=== PATIENT | female | born 1945 | race Caucasian/White ===

== ENCOUNTER 2020-09-23 18:07 | Emergency (ER) | payer MEDICARE, SELFPAY ==
[2020-09-23 18:18] VITALS: BP 205/66; PULSE 63; RESP 16; TEMP 36.4; O2SAT 94; BMI 28.3
--- NOTE | 2020-09-23 18:46 | XR_ITS ---
WS: [id number] Exam: XR chest 1V portable [id number] Date/Time of Exam: 09/23/2020 6:48 PM Reason For Exam: CP No priors. The lungs are clear. Normal cardiomediastinal structures and regional bony elements. XR/XR chest 1V portable [id number] IMPRESSION: 1. No acute cardiopulmonary finding.
[2020-09-23 19:34] LABS: Basophils % 0.5 %; Eosinophils # 0.3 10^3/uL (0.0-0.8); Hematocrit 38.5 % (37.0-47.0); Hemoglobin 13.1 g/dL (11.5-15.3); Lymphocytes # 1.9 10^3/uL (0.8-4.8); Lymphocytes % 34.5 %; Mean Corpuscular Hemoglobin 30.8 pg (28.0-34.0); Mean Corpuscular Volume 90.6 fL (81-99); Mean Platelet Volume 11.9 fL (7.4-10.4); Monocytes # 0.5 10^3/uL (0.2-0.9); Monocytes % 8.9 %; Neutrophils # 2.84 10^3/uL (1.8-7.7); Neutrophils % 50.9 %; Nucleated Red Blood Cells % 0 %; Platelet Count 160 10^3/cmm (130-400); Red Blood Count 4.25 10^6/uL (4.1-5.3); Red Cell Distribution Width 13.5 % (12.1-15.1); White Blood Count 5.6 10^3/uL (4.0-10.0)
--- NOTE | 2020-09-23 19:40 | ECG_ITS ---
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 Measurements Intervals [place] Rate: 62 P: 30 AL: 150 QRS: 48 QRSD: 108 T: 21 QT: 427 QTc: 435 Interpretive Statements SINUS RHYTHM LOW QRS VOLTAGE IN PRECORDIAL LEADS [QRS DEFLECTION < 1.0 mV IN CHEST LEADS] INCOMPLETE RIGHT BUNDLE BRANCH BLOCK [90+ ms QRS DURATION, TERMINAL R IN V1/V2, 40+ ms S IN I/aVL/V4/V5/V6] No previous ECG available for comparison Electronically Signed On 09-23-2020 21:13:50 CDT by Radha Phillips M.D. [id number] f
[2020-09-23 19:55] LABS: Lactate (Lactic Acid level) 1.6 mmol/L (0.5-2.2)
[2020-09-23 20:03] LABS: Troponin(5th) Baseline 13 ng/L (0-10)
[2020-09-23 20:11] LABS: Alanine Aminotransferase 19 U/L (0-33); Albumin Level 4.2 g/dL (3.5-5.2); Alkaline Phosphatase 57 IU/L (35-105); Aspartate Amino Transferase 18 U/L (0-32); Blood Urea Nitrogen 18 mg/dL (8-23); C Reactive Protein 1.1 mg/L (0.0-4.9); Calcium 9.6 mg/dL (8.5-10.5); Carbon Dioxide 25 mmol/L (22-29); Chloride 102 mmol/L (98-107); Creatinine Clr Calc Pharmacy 57.1106; Globulin 2.7 g/dL (1.3-4.6); Glucose 139 mg/dL (65-115); Lipase 44 U/L (13-60); NT Pro B Type Natriuretic Pept 446 pg/mL (0-450); Osmolality Calculated 292 mOsm/kg (285-295); Sodium 139 mmol/L (136-145); Total Bilirubin 0.5 mg/dL (0.15-1.2); Total Protein 6.9 g/dL (6.6-8.7)
[2020-09-23 20:34] LABS: Urine Appearance Hazy (CLEAR); Urine Color Yellow (Yellow); pH Urine 6.5 (5-7)
[2020-09-23 20:35] LABS: Add Urine Microscopic? YES; Bilirubin Urine Neg (Negative); Blood Urine Neg (Negative); Glucose Urine UA Norm (Normal); Ketones Urine Negative (Negative); Leukocyte Esterase Urine 1+ (Negative); Nitrate Urine Positive (Negative); Protein Urine Neg (Negative); RBC Urine 0-4 /hpf (0-2); Urobilinogen Urine Norm (Negative); WBC Urine 15-25 /hpf (0-5)
[2020-09-23 20:36] LABS: Add Urine Culture? Yes; Bacteria Urine 4+ /hpf
[2020-09-23] MEDS: cefTRIAXone 1,000 MG in sodium chloride 0.9% (plus) 50 ML 100 MG IV (20:55)
--- NOTE | 2020-09-23 21:20 | W.ED.GENADLT ---
HPI - General Adult General: Chief complaint: General Medical Stated complaint: Hallucinating/Poss UTI Time Seen by Provider: 09/23/20 18:26 Source: family (daughter) Mode of arrival: ambulatory Limitations: altered mental status History of Present Illness: HPI narrative: This is a 74-year-old female patient who was brought in by her daughter and states that the patient has been hallucinating for about 3 days. The patient endorses auditory and visual hallucinations. The daughter states that the last time this happened the patient was septic from a UTI and so she was concerned that she may be getting a UTI. She states that the patient told her that she had pain after urination today and also complained of chest pain earlier today. She therefore brought her in to be evaluated. Onset (ago): hour(s) (3) Location: chest Pain Consistency: intermittent Associated symptoms: Reports chest pain; Deny confusion, cough, diaphoresis, decreased appetite, dyspnea, fevers/chills, headache(s), malaise, nausea, rash, palpitations, seizures, short of breath, syncope, vomiting or weakness Review of Systems General: Reports: 10 or more systems reviewed and unremarkable except in HPI and below Const: Denies: malaise or diaphoresis Card: Reports: chest pain; Denies: palpitations or syncope Resp: Denies: dyspnea GI: Denies: nausea or vomiting Skin/Breast: Denies: rash Neuro: Denies: headache(s) or confusion Physical Exam Const: COMMON NORMALS: no acute distress, average body habitus, patient oriented x3, no limitations, healthy appearing, alert and well nourished HENMT: COMMON NORMALS: normocephalic, atraumatic and moist oral mucous membranes HEAD & SCALP: normocephalic and atraumatic Neck/C-Spine: COMMON NORMALS: no meningeal signs and no JVD Resp: COMMON NORMALS: normal respiratory effort, No retractions, No use of accessory muscles, clear to auscultation bilaterally and percussion normal AUSCULTATION: clear to auscultation bilaterally PERCUSSION: percussion normal Cardio: COMMON NORMALS: no JVD, regular rate, regular rhythm, S1 normal heart sound present, S2 normal heart sound present, No gallops present (Cardio), No clicks present (Cardio), No murmurs present (Cardio), No rub (Cardio) and Peripheral pulses 2+ throughout RATE: regular rate RHYTHM: regular rhythm HEART SOUNDS: S1 normal heart sound present and S2 normal heart sound present PERIPHERAL PULSES: Peripheral pulses 2+ throughout GI: COMMON NORMALS: Normal to inspection, nondistended, normoactive bowel sounds present, Soft to palpation, non-tender, No hepatosplenomegaly present, no masses and no bruits PALPATION: Yes Soft to palpation and Yes No hepatosplenomegaly present Extremity: COMMON NORMALS: normal to inspection, full ROM, capillary refill normal, no calf tenderness and no pedal edema Neuro: COMMON NORMALS: patient oriented x3 SENSORIUM/ORIENTATION: Yes alert MENINGEAL SIGNS: Yes no meningeal signs Skin: COMMON NORMALS: no rashes or lesions noted, no wounds, turgor normal, no jaundice, no petechiae and no mottling GENERAL SKIN EXAM: no rashes or lesions noted and turgor normal Course Reevaluation(s): Reevaluation #1: Discussed her lab and imaging findings with her. Discussed that she has a UTI and probably has delirium from these. Her white cell count is normal, her vital signs are normal, cardiac enzymes are unremarkable. I therefore explained to her daughter that the patient does not meet admission criteria and will be discharged home. Blood pressure was elevated in the emergency department and the daughter states that the blood pressure has been consistently elevated at home also. I will therefore add amlodipine 10 mg to her antihypertensive regimen and she is discharged home with a prescription for Augmentin. She voiced understanding and is in agreement with the plan. Time: 22:05 Vital Signs: Vital signs: Vital Signs Temperature 97.6 F 09/23/20 18:18 Pulse Rate 63 09/23/20 18:18 Respiratory Rate 16 09/23/20 18:18 Blood Pressure 216/77 09/23/20 21:54 Pulse Oximetry 94 09/23/20 18:18 MDM - General Adult MDM Narrative: Medical decision making narrative: 74-year-old female patient was brought into the emergency department with auditory and visual hallucinations evaluation in the emergency department shows that the patient has a UTI and she probably has delirium secondary to this. Vital signs were stable other than elevated blood pressure she required a dose of clonidine in the emergency department she is given a prescription for amlodipine. She is discharged home also with a prescription for Augmentin for the UTI. Daughter understands to bring her back if symptoms worsen or she does not obtain significant improvement. Medical Records: Attestation: I reviewed the patient's medical records. Lab Data: Attestation: I reviewed the patient's lab results. Labs: Lab Results 09/23/20 09/23/20 09/23/20 Range/Units 19:20 19:20 19:20 WBC 5.6 (4.0-10.0) 10^3/ uL RBC 4.25 (4.1-5.3) 10^6/u L Hgb 13.1 (11.5-15.3) g/dL Hct 38.5 (37.0-47.0) % MCV 90.6 (81-99) fL MCH 30.8 (28.0-34.0) pg MCHC 34.0 (30.0-36.0) g/dL RDW 13.5 (12.1-15.1) % Plt Count 160 (130-400) 10^3/c mm MPV 11.9 H (7.4-10.4) fL Neut % (Auto) 50.9 % Lymph % (Auto) 34.5 % [place] % (Auto) 8.9 % Eos % (Auto) 5.0 % Baso % (Auto) 0.5 % Neut # (Auto) 2.84 (1.8-7.7) 10^3/u L Lymph # (Auto) 1.9 (0.8-4.8) 10^3/u L [place] # (Auto) 0.5 (0.2-0.9) 10^3/u L Eos # (Auto) 0.3 (0.0-0.8) 10^3/u L Baso # (Auto) 0.0 (0.0-0.1) 10^3/u L Nucleated RBC % (a uto) 0 % Nucleated RBCs # 0.0 /100WBC Sodium 139 (136-145) mmol/L Potassium 4.0 (3.5-5.1) mmol/L Chloride 102 (98-107) mmol/L Carbon Dioxide 25 (22-29) mmol/L Anion Gap 16.0 (5-19) BUN 18 (8-23) mg/dL Creatinine 0.8 (0.5-0.9) mg/dL GFR Calculation Not Reportable Glucose 139 H (65-115) mg/dL Calculated Osmolal ity 292 (285-295) mOsm/k g Lactate 1.6 (0.5-2.2) mmol/L Calcium 9.6 (8.5-10.5) mg/dL Total Bilirubin 0.5 (0.15-1.2) mg/dL AST 18 (0-32) U/L ALT 19 (0-33) U/L Alkaline Phosphata se 57 (35-105) IU/L Troponin T Baselin e (0-10) ng/L Troponin T 120 Min [place] (0-10) ng/L Delta Troponin T (0-10) ABS# C-Reactive Protein 1.1 (0.0-4.9) mg/L NT-Pro-B Natriuret Pep 446 (0-450) pg/mL Total Protein 6.9 (6.6-8.7) g/dL Albumin 4.2 (3.5-5.2) g/dL Globulin 2.7 (1.3-4.6) g/dL Lipase 44 (13-60) U/L Urine Color (Yellow) Urine Appearance (CLEAR) Urine pH (5-7) Ur Specific Gravit y (1.005-1.030) Urine Protein (Negative) Urine Glucose (UA) (Normal) Urine Ketones (Negative) Urine Blood (Negative) Urine Nitrate (Negative) Urine Bilirubin (Negative) Urine Urobilinogen (Negative) mg/dL Ur Leukocyte Lelo ase (Negative) Urine RBC (0-2) /hpf Urine WBC (0-5) /hpf Ur Squamous Epith Cells (0-5) /hpf Amorphous Sediment Urine Bacteria (NONE) /hpf 09/23/20 09/23/20 09/23/20 Range/Units 19:20 20:03 21:28 WBC (4.0-10.0) 10^3/ uL RBC (4.1-5.3) 10^6/u L Hgb (11.5-15.3) g/dL Hct (37.0-47.0) % MCV (81-99) fL MCH (28.0-34.0) pg MCHC (30.0-36.0) g/dL RDW (12.1-15.1) % Plt Count (130-400) 10^3/c mm MPV (7.4-10.4) fL Neut % (Auto) % Lymph % (Auto) % [place] % (Auto) % Eos % (Auto) % Baso % (Auto) % Neut # (Auto) (1.8-7.7) 10^3/u L Lymph # (Auto) (0.8-4.8) 10^3/u L [place] # (Auto) (0.2-0.9) 10^3/u L Eos # (Auto) (0.0-0.8) 10^3/u L Baso # (Auto) (0.0-0.1) 10^3/u L Nucleated RBC % (a uto) % Nucleated RBCs # /100WBC Sodium (136-145) mmol/L Potassium (3.5-5.1) mmol/L Chloride (98-107) mmol/L Carbon Dioxide (22-29) mmol/L Anion Gap (5-19) BUN (8-23) mg/dL Creatinine (0.5-0.9) mg/dL GFR Calculation Glucose (65-115) mg/dL Calculated Osmolal ity (285-295) mOsm/k g Lactate (0.5-2.2) mmol/L Calcium (8.5-10.5) mg/dL Total Bilirubin (0.15-1.2) mg/dL AST (0-32) U/L ALT (0-33) U/L Alkaline Phosphata se (35-105) IU/L Troponin T Baselin e 13 H (0-10) ng/L Troponin T 120 Min [place] 8.96 (0-10) ng/L Delta Troponin T -4.04 L (0-10) ABS# C-Reactive Protein (0.0-4.9) mg/L NT-Pro-B Natriuret Pep (0-450) pg/mL Total Protein (6.6-8.7) g/dL Albumin (3.5-5.2) g/dL Globulin (1.3-4.6) g/dL Lipase (13-60) U/L Urine Color Yellow (Yellow) Urine Appearance Hazy A (CLEAR) Urine pH 6.5 (5-7) Ur Specific Gravit y 1.010 (1.005-1.030) Urine Protein Neg (Negative) Urine Glucose (UA) Norm (Normal) Urine Ketones Negative (Negative) Urine Blood Neg (Negative) Urine Nitrate Positive H (Negative) Urine Bilirubin Neg (Negative) Urine Urobilinogen Norm (Negative) mg/dL Ur Leukocyte Lelo ase 1+ H (Negative) Urine RBC 0-4 H (0-2) /hpf Urine WBC 15-25 H (0-5) /hpf Ur Squamous Epith Cells 5-10 H (0-5) /hpf Amorphous Sediment Not Reportable Urine Bacteria 4+ H (NONE) /hpf Discharge Plan Discharge Patient Disposition: Home Clinical Impression: Delirium due to another medical condition, Essential hypertension UTI (urinary tract infection) Qualifiers: Urinary tract infection type: acute cystitis Hematuria presence: without hematuria Qualified Code(s): N30.00 - Acute cystitis without hematuria Condition: Stable Prescriptions: New Augmentin 500-125 mg tablet 1 tab PO BID Qty: 10 RF: 0 amlodipine 10 mg tablet 10 mg PO DAILY Qty: 30 RF: 0 Discharge Orders: Discharge ED (Routine); Ordered 09/23/20 Ordered By: Amy Olsen Referrals: Makenna Yoo APN [Primary Care Provider] - 1-3 days Discharge Diet: Usual diet Discharge Activity: Increase activity as tolerated Patient Instructions: Urinary Tract Infection in Women (ED), Acute Delirium (ED), Hypertension (ED) Activity Restrictions/Additional Instructions: Return for any new or worsening symptoms. Follow-up with your primary care provider within 3 days. Take the antibiotic as prescribed. Take the antihypertensive as prescribed. Check her blood pressure regularly and see if the medication is working properly. Coding Level of Care Code ED Study Hall Supervisor for Mariano Alonso
[2020-09-23 21:52] LABS: Troponin 5 2HR 8.96 ng/L (0-10)
[2020-09-23 21:54] VITALS: BP 216/77
[2020-09-23] MEDS: cloNIDine 0.1 mg Tablet PO (21:54)
[2020-09-23 21:59] LABS: Troponin 5 2HR Delta -4.04 ABS# (0-10)
[2020-09-23 22:29] VITALS: BP 171/82; PULSE 66; RESP 16; O2SAT 97
== END 2020-09-23 22:30 | disposition home or self-care (01) ==
PROVIDERS: Emergency Provider Family Medicine; PCP Nurse Practitioner Family
DX: F05 Delirium due to known physiological condition (principal); N30.00 Acute cystitis without hematuria; I10 Essential (primary) hypertension
CPT/HCPCS: 36415; 71045; 80053; 81001; 83605; 83690; 83880; 84484; 85025; 86140; 87040; 87077; 87086; 87186; 93005; 96365; 99284; J0696

== ENCOUNTER 2021-08-22 19:02 | Inpatient (IN) | payer MEDICARE, MEDICAID, SELFPAY ==
--- NOTE | 2021-08-22 19:13 | XRR_ITS ---
PROCEDURE INFORMATION: Exam: XR Chest Exam date and time: 08/22/2021 8:56 PM Age: 75 years old Clinical indication: Other: AMS TECHNIQUE: Imaging protocol: XR of the chest. Views: 1 view. COMPARISON: CR XR chest 1V portable [id number] 09/23/2020 6:48 PM FINDINGS: Lungs: Unremarkable. No consolidation. Pleural spaces: Unremarkable. No pleural effusion. No pneumothorax. Heart/Mediastinum: Unremarkable. No cardiomegaly. Bones/joints: Unremarkable. XR/XR chest 1V portable [id number] IMPRESSION: No acute findings.
--- NOTE | 2021-08-22 19:13 | ECG_ITS ---
[facility] Test Date: 2021-08-22 Pat Name: Anat Mark Department: Room: Gender: Female Therapy Director: : 1945 Requested By: Mir Garcia Order Number: [id number] Angelika MD: Juanito Bowling M.D. Measurements Intervals [place] Rate: 77 P: 67 [place]: 148 QRS: 103 QRSD: 133 T: 10 QT: 410 QTc: 464 Interpretive Statements SINUS RHYTHM WITH OCCASIONAL SUPRAVENTRICULAR PREMATURE COMPLEXES POSSIBLE RIGHT ATRIAL ENLARGEMENT [0.25mV P-WAVE] POSSIBLE LEFT ATRIAL ENLARGEMENT [-0.1mV P-WAVE IN V1/V2] INTRAVENTRICULAR CONDUCTION DELAY [130+ ms QRS DURATION] POSSIBLE RIGHT VENTRICULAR HYPERTROPHY [SOME/ALL OF: PROMINENT R IN V1, LATE TRANSITION, RAD, TAMMI, SSS] Compared to ECG 09/23/2020 19:43:29 Intraventricular conduction delay now present Incomplete right bundle-branch block no longer present Electronically Signed On 08-24-2021 9:01:56 CDT by Juanito Bowling M.D. [id number]
--- NOTE | 2021-08-22 19:13 | CTR_ITS ---
PROCEDURE INFORMATION: Exam: CT Head Without Contrast Exam date and time: 08/22/2021 8:40 PM Age: 75 years old Clinical indication: Altered mental status/memory loss; Confusion or disorientation; Patient HX: AMS - confusion TECHNIQUE: Imaging protocol: Computed tomography of the head without contrast. Radiation optimization: All CT scans at this facility use at least one of these dose optimization techniques: automated exposure control; mA and/or kV adjustment per patient size (includes targeted exams where dose is matched to clinical indication); or iterative reconstruction. COMPARISON: No relevant prior studies available. RADIATION DOSE METRICS: Total DLP (mGy-cm): 770.14 FINDINGS: Brain: Moderate diffuse white matter disease likely reflecting chronic microvascular ischemic changes. Cerebral ventricles: No ventriculomegaly. Paranasal sinuses: Visualized sinuses are unremarkable. No fluid levels. Mastoid air cells: Visualized mastoid air cells are well aerated. Bones/joints: Unremarkable. No acute fracture. Soft tissues: Unremarkable. CT/CT head wo con* [id number] IMPRESSION: 1. Negative for intracranial hemorrhage or mass effect 2. Moderate diffuse white matter disease likely reflecting chronic microvascular ischemic changes.
[2021-08-22 19:50] VITALS: BP 147/69; PULSE 74; RESP 18; TEMP 36.9; O2SAT 91
--- NOTE | 2021-08-22 21:13 | ECG_ITS ---
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 Measurements Intervals [place] Rate: 69 P: 47 [place]: 159 QRS: 92 QRSD: 108 T: 16 QT: 437 QTc: 469 Interpretive Statements SINUS RHYTHM WITH OCCASIONAL SUPRAVENTRICULAR PREMATURE COMPLEXES BORDERLINE RIGHT AXIS DEVIATION [QRS AXIS > 90] LOW QRS VOLTAGE IN PRECORDIAL LEADS [QRS DEFLECTION < 1.0 mV IN CHEST LEADS] INCOMPLETE RIGHT BUNDLE BRANCH BLOCK [90+ ms QRS DURATION, TERMINAL R IN V1/V2, 40+ ms S IN I/aVL/V4/V5/V6] Compared to ECG 08/22/2021 20:24:06 Low QRS voltage now present Incomplete right bundle-branch block now present Intraventricular conduction delay no longer present Electronically Signed On 08-24-2021 9:07:11 CDT by Juanito Bowling M.D. [id number]
--- NOTE | 2021-08-22 21:14 | W.ED.GENADLT ---
HPI - General Adult General: Chief complaint: General Medical Stated complaint: AMS Time Seen by Provider: 08/22/21 20:26 History of Present Illness: 75-year-old alf patient presents with lethargy. longterm staff complaint she was not herself, more lethargic, and generally weak. The patient herself has no real complaints. Daughter states that she appears improved somewhat from prior description by alf. No history of fever, cough, vomiting or diarrhea. Onset (ago): hour(s) Radiation: non-radiation Quality: other Pain Consistency: other Relieving factors: none Exacerbating factors: none Associated symptoms: Reports confusion (perhaps mild), decreased appetite and weakness (generalized); Deny chest pain, cough, diaphoresis, dyspnea, fevers/chills, headache(s), nausea, palpitations, short of breath or vomiting Review of Systems Const: Denies: fever(s), chills, body aches or diaphoresis Eyes: Denies: change in vision ENMT: Denies: throat pain Card: Denies: chest pain or palpitations Resp: Denies: dyspnea GI: Denies: nausea or vomiting Neuro: Reports: confusion (perhaps mild); Denies: headache(s) PFSH ED PFSH: Medical History Arthritis Depression Diabetes HTN (hypertension) with goal to be determined Other fatigue Radiculopathy, lumbar region Vitamin D deficiency, unspecified Family History Other Cancer Hypertension Myocardial infarct Physical Exam Const: GENERAL APPEARANCE: cooperative and frail appearing ORIENTATION/CONSCIOUSNESS: Yes awake, Yes oriented to person, Yes oriented to place and Yes oriented to time HENMT: COMMON NORMALS: normocephalic, atraumatic and Normal external nose present HEAD & SCALP: normocephalic and atraumatic FACE & SINUS: normal facial exam NOSE: Normal external nose present and Normal nares present Eye: COMMON NORMALS: Equal, round and reactive pupils present and EOMs intact bilaterally PUPIL: Yes Equal, round and reactive pupils present Chest: COMMONS NORMALS: normal inspection of the chest Resp: COMMON NORMALS: normal respiratory effort, No use of accessory muscles and clear to auscultation bilaterally AUSCULTATION: clear to auscultation bilaterally Cardio: COMMON NORMALS: regular rate and regular rhythm RATE: regular rate RHYTHM: regular rhythm GI: COMMON NORMALS: Normal to inspection, nondistended, normoactive bowel sounds present, Soft to palpation and non-tender PALPATION: Yes Soft to palpation Extremity: COMMON NORMALS: normal to inspection GENERAL: No edema Neuro: MIKAELA COMA SCALE: document GCS findings Mikaela coma scale eye opening: Spontaneous Mikaela coma scale verbal response: Orientated Mikaela coma scale motor response: Obey commands Mikaela coma scale total score: 15 SENSORIUM/ORIENTATION: Yes oriented to person, Yes oriented to place and Yes oriented to time COORDINATION/BALANCE: [id number] test normal SPEECH: speech normal MOTOR EXAM: Pronator motor function not present COORDINATION: [id number] test normal Psych: COMMON NORMALS: cooperative Course Consultations: Consultation #1: bryan Time: 23:36 Vital Signs: Vital signs: Vital Signs Temperature 98.5 F 08/22/21 19:50 Pulse Rate 74 08/22/21 19:50 Respiratory Rate 18 08/22/21 19:50 Blood Pressure 147/69 08/22/21 19:50 Pulse Oximetry 91 08/22/21 19:50 [facility] - General Adult Medical Decision Making Patient noted to be hypoxic on pulse ox. Oxygen was started. Blood gas drawn. PO2 on 2 L was 70. She was bumped up to 3. She has normal pH. Her blood sugar is 480. Urinalysis shows greater than 100 whites with 2+ leukocyte esterase and shows minimal contamination. White blood cell count is only 7. Patient is given 10 mg of IV insulin, and sugar is rechecked an hour. It is down now to 364. Chest x-ray is negative for any acute change. She is nontachycardic. Her BUN is 27, with a creatinine of 1.2. She is given IV Rocephin for her urinary tract infection. Her belly is soft and nontender. Lab Data : 08/22/21 21:25 08/22/21 21:25 Radiology Impressions Chest X-Ray 08/22/21 19:13 IMPRESSION: No acute findings. Head CT 08/22/21 19:13 IMPRESSION: 1. Negative for intracranial hemorrhage or mass effect 2. Moderate diffuse white matter disease likely reflecting chronic microvascular ischemic changes. Laboratory Results WBC 7.2 10^3/uL (4.0-10.0) 08/22/21 21: RBC 4.64 10^6/uL (4.1-5.3) 08/22/21: Hgb 13.9 g/dL (11.5-15.3) 08/22/21: Hct 41.6 % (37.0-47.0) 08/22/21: MCV 89.7 fl (81-99) 08/22/21: MCH 30.0 pg (28.0-34.0) 08/22/21: MCHC 33.4 g/dL (30.0-36.0) 08/22/21: RDW 13.4 % (12.1-15.1) 08/22/21: Plt Count 216 10^3/cmm (130-400) 08/22/21: MPV 11.5 fL (7.4-10.4) H 08/22/21: Neut % (Auto) 68.6 % 08/22/21: Lymph % (Auto) 17.4 % 08/22/21: [place] % (Auto) 10.5 % 08/22/21: Eos % (Auto) 2.6 % 08/22/21: Baso % (Auto) 0.6 % 08/22/21: Neut # (Auto) 4.92 10^3/uL (1.8-7.7) 08/22/21: Lymph # (Auto) 1.3 10^3/uL (0.8-4.8) 08/22/21: [place] # (Auto) 0.8 10^3/uL (0.2-0.9) 08/22/21: Eos # (Auto) 0.2 10^3/uL (0.0-0.8) 08/22/21: Baso # (Auto) 0.0 10^3/uL (0.0-0.1) 08/22/21: Nucleated RBC % (auto) 0 % 08/22/21: Nucleated RBCs # 0.0 /100WBC 08/22/21 21: Specimen Type Arterial 08/22/21 22:22 Sample Site Radial, left 08/22/21 22:22 ABG pH 7.40 (7.35-7.45) 08/22/21 22:22 ABG pCO2 40.7 mmHg (35-45) 08/22/21 22: ABG pO2 72.6 mmHg (80.0-100.0) L 08/22/21 22:22 ABG HCO3 25.3 mmol/L (22-26) 08/22/21 22:22 ABG Base Excess 0.4 mmol/L (-2.0-2.0) 08/22/21 22:22 Iban Test Pos 08/22/21 22:22 Hematocrit 42.6 % (37-47) 08/22/21 22: O2 Delivery Device Nc 08/22/21 22: O2 Liters/Min 2.0 % 08/22/21 22:22 Financial Reporting Advisor ID Buttr 08/22/21 22:22 Sodium 133 mmol/L (136-145) L 08/22/21 21:25 Potassium 4.1 mmol/L (3.5-5.1) 08/22/21 21:25 Chloride 96 mmol/L (98-107) L 08/22/21 21:25 Carbon Dioxide 23 mmol/L (22-29) 08/22/21 21:25 Anion Gap 18.1 (5-19) 08/22/21 21:25 BUN 27 mg/dL (8-23) H 08/22/21 21:25 Creatinine 1.2 mg/dL (0.5-0.9) H 08/22/21 21:25 GFR Calculation Not Reportable 08/22/21 21:25 Glucose 480 mg/dL (65-115) H 08/22/21 21:25 POC Glucose 364 mg/dL (70-110) H 08/22/21 23:17 Calculated Osmolality 302 mOsm/kg (285-295) H 08/22/21 21:25 Calcium 10.2 mg/dL (8.5-10.5) 08/22/21 21:25 Total Bilirubin 0.5 mg/dL (0.15-1.2) 08/22/21 21:25 AST 29 U/L (0-32) 08/22/21 21:25 ALT 33 U/L (0-33) 08/22/21 21:25 Alkaline Phosphatase 91 IU/L (35-105) 08/22/21 21:25 Ammonia 17 umol/L (11-51) 08/22/21 21:25 Troponin T Baseline 42 ng/L (0-10) H 08/22/21 21:25 NT-Pro-B Natriuret Pep 361 pg/mL (0-450) 08/22/21 21:25 Total Protein 7.9 g/dL (6.6-8.7) 08/22/21 21:25 Albumin 4.0 g/dL (3.5-5.2) 08/22/21 21: Globulin 3.9 g/dL (1.3-4.6) 08/22/21 21:25 Lipase 22 U/L (13-60) 08/22/21 21:25 Urine Color Yellow (Yellow) 08/22/21 20:32 Urine Appearance Sl cloudy (CLEAR) A 08/22/21 20:32 Urine pH 5 (5-7) 08/22/21 20:32 Ur Specific [place] 1.015 (1.005-1.030) 08/22/21 20:32 Urine Protein Neg (Negative) 08/22/21 20:32 Urine Glucose (UA) 4+ (Normal) H 08/22/21 20:32 Urine Ketones Negative (Negative) 08/22/21 20: Urine Blood 2+ (Negative) H 08/22/21 20:32 Urine Nitrate Negative (Negative) 08/22/21 20:32 Urine Bilirubin Neg (Negative) 08/22/21 20:32 Urine Urobilinogen Norm mg/dL (Negative) 08/22/21 20:32 Ur Leukocyte Esterase 2+ (Negative) H 08/22/21 20:32 Urine RBC 10-15 /hpf (0-2) H 08/22/21 20:32 Urine WBC >100 /hpf (0-5) H 08/22/21 20:32 Ur Squamous Epith Cells 5-10 /hpf (0-5) H 08/22/21 20:32 Amorphous Sediment Not Reportable 08/22/21 20:32 Urine Bacteria 4+ /hpf (NONE) H 08/22/21 20:32 Urine Yeast 1+ /hpf H 08/22/21 20:32 Salicylates < 0.3 mg/dL (3-10) L 08/22/21 21:25 Acetaminophen < 5.0 ug/mL (10-30) L 08/22/21 21:25 Serum Ketones Negative (Negative) 08/22/21 21:28 Coronavirus 229E (PCR) Not detected (NOT DETECT) 08/22/21 21:28 SARS-CoV-2 (PCR) Not detected (NOT DETECT) 08/22/21 21:28 Discharge Plan Discharge Patient Disposition: Placed in Observation Clinical Impression: Acute UTI, Acute hyperglycemia, Acute alteration in mental status Coding Level of Care Code ED Customs Appraiser for Mariano Fwd Exam Comprehensive
[2021-08-22 21:38] LABS: Basophils % 0.6 %; Eosinophils # 0.2 10^3/uL (0.0-0.8); Eosinophils % 2.6 %; Hematocrit 41.6 % (37.0-47.0); Hemoglobin 13.9 g/dL (11.5-15.3); Lymphocytes # 1.3 10^3/uL (0.8-4.8); Lymphocytes % 17.4 %; Mean Corpuscular HGB Conc 33.4 g/dL (30.0-36.0); Mean Corpuscular Volume 89.7 fl (81-99); Mean Platelet Volume 11.5 fL (7.4-10.4); Monocytes # 0.8 10^3/uL (0.2-0.9); Monocytes % 10.5 %; Neutrophils # 4.92 10^3/uL (1.8-7.7); Neutrophils % 68.6 %; Nucleated Red Blood Cells % 0 %; Platelet Count 216 10^3/cmm (130-400); Red Blood Count 4.64 10^6/uL (4.1-5.3); Red Cell Distribution Width 13.4 % (12.1-15.1); White Blood Count 7.2 10^3/uL (4.0-10.0)
[2021-08-22 21:54] LABS: Add Urine Microscopic? YES; Bilirubin Urine Neg (Negative); Blood Urine 2+ (Negative); Glucose Urine UA 4+ (Normal); Ketones Urine Negative (Negative); Leukocyte Esterase Urine 2+ (Negative); Nitrate Urine Negative (Negative); Protein Urine Neg (Negative); Specific Gravity, Urine 1.015 (1.005-1.030); Urine Color Yellow (Yellow); Urobilinogen Urine Norm (Negative); pH Urine 5 (5-7)
[2021-08-22 21:56] LABS: Alanine Aminotransferase 33 U/L (0-33); Alkaline Phosphatase 91 IU/L (35-105); Anion Gap 18.1 (5-19); Aspartate Amino Transferase 29 U/L (0-32); Blood Urea Nitrogen 27 mg/dL (8-23); Calcium 10.2 mg/dL (8.5-10.5); Carbon Dioxide 23 mmol/L (22-29); Chloride 96 mmol/L (98-107); Globulin 3.9 g/dL (1.3-4.6); Glucose 480 mg/dL (65-115); Lipase 22 U/L (13-60); Osmolality Calculated 302 mOsm/kg (285-295); Potassium 4.1 mmol/L (3.5-5.1); Sodium 133 mmol/L (136-145); Total Bilirubin 0.5 mg/dL (0.15-1.2); Total Protein 7.9 g/dL (6.6-8.7)
[2021-08-22 21:58] LABS: Troponin(5th) Baseline 42 ng/L (0-10)
[2021-08-22 22:01] LABS: Ammonia 17 umol/L (11-51)
[2021-08-22 22:03] LABS: Acetaminophen < 5.0 ug/mL (10-30); Salicylate < 0.3 mg/dL (3-10)
[2021-08-22 22:05] LABS: NT Pro B Type Natriuretic Pept 361 pg/mL (0-450)
[2021-08-22 22:16] LABS: Add Urine Culture? Yes; Bacteria Urine 4+ /hpf; WBC Urine >100 /hpf (0-5)
[2021-08-22 22:24] LABS: Ketone (Acetest) Serum Negative (Negative)
[2021-08-22] MEDS: insulin regular-human 100 units/1 mL 10 UNIT IVP (22:28)
[2021-08-22] MEDS: cefTRIAXone 1,000 MG in sodium chloride 0.9% (plus) 50 ML 100 MG IV (22:31)
[2021-08-22 22:34] LABS: ABG PCO2 40.7 mmHg (35-45); Arterial Blood Gas Hematocrit 42.6 % (37-47); Base Excess ABG 0.4 mmol/L (-2.0-2.0); Blood Gas Allen Test Pos; Blood Gas Sample Site Radial, left; Blood Gas Sample Type Arterial; HCO3 ABG 25.3 mmol/L (22-26); Oxygen Device NC; PO2 ABG 72.6 mmHg (80.0-100.0)
[2021-08-22 23:00] VITALS: BP 147/69; PULSE 74; RESP 18; O2SAT 95
[2021-08-22 23:21] LABS: Glucose Point of Care 364 mg/dL (70-110)
[2021-08-22 23:30] LABS: Adenovirus Not Detected (NOT DETECT); Chlamydia Pneumoniae Not Detected (NOT DETECT); Coronavirus 229E,HKU1,NL63,OC4 Not Detected (NOT DETECT); Human Metapneumovirus Not Detected (NOT DETECT); Human Rhinovirus/Enterovirus Not Detected (NOT DETECT); Influenza A Not Detected (NOT DETECT); Influenza A H1 Not Detected (NOT DETECT); Influenza A H1-2009 Not Detected (NOT DETECT); Influenza A H3 Not Detected (NOT DETECT); Influenza B Not Detected (NOT DETECT); Mycoplasma Pneumoniae Not Detected (NOT DETECT); Parainfluenza Virus Type 1 Not Detected (NOT DETECT); Parainfluenza Virus Type 2 Not Detected (NOT DETECT); Parainfluenza Virus Type 3 Not Detected (NOT DETECT); Parainfluenza Virus Type 4 Not Detected (NOT DETECT); Respiratory Syncytial Virus A Not Detected (NOT DETECT); Respiratory Syncytial Virus B Not Detected (NOT DETECT); SARS-COV-2 Not Detected (NOT DETECT)
[2021-08-22 23:56] LABS: Troponin 5 2HR 40.44 ng/L (0-10)
[2021-08-23] VITALS (9 sets, daily range): BP systolic 120–158; BP diastolic 61–81; PULSE 69–82; RESP 14–18; TEMP 36.2–37.2; O2SAT 89–95
[2021-08-23 00:06] LABS: Troponin 5 2HR Delta -1.56 ABS# (0-10)
--- NOTE | 2021-08-23 00:12 | PM.HP ---
Providers/Chief Complaint Admitting Physician: Roly Larson MD Primary Care Provider: Law Manzanares MD Chief Complaint: AMS History of Present Illness Anat Mark is a 75 year old female a past medical history of [id number] type 2 diabetes mellitus, depression, hypertension, baseline dementia, who presents [facility] due to complaints of increased fatigue, and increased confusion. Patient's daughter is at bedside, tells me that patient has dementia, she is quite alert, awake to person, to place, not to time, she tells me that her grandmother's dementia has been worsening over the last year. She does ambulate on her own, does feed herself. Currently patient has no complaints, she frequently jokes with me, she tells me that her only complaint is generalized weakness. No fevers, no cough, no shortness of breath, no history of COVID-19 infection, she does tell me that her roommate at the retirement had COVID-19. Denies any dysuria, hematuria, is complaining of right flank pain Review of Systems Const: Denies: fever(s) or chills Eyes: Denies: change in vision ENMT: Denies: nasal congestion Resp: Denies: dyspnea, productive cough, non-productive cough or wheezing GI: Denies: abdominal pain, nausea, vomiting or diarrhea : Denies: dysuria or urinary frequency Skin/Breast: Denies: rash Neuro: Denies: dizziness Endo: Denies: polyuria or polydipsia Medications/Allergies Home Medications Medication Instructions Recorded Confirmed Last Taken Type amlodipine 10 mg tablet 10 mg PO DAILY #30 tab 09/23/20 08/21/21 Unknown Rx atorvastatin 20 mg tablet 20 mg PO DAILY 12/02/20 08/21/21 Unknown History dapagliflozin 10 mg tablet 10 mg PO DAILY 12/02/20 08/21/21 Unknown History (Farxiga) escitalopram oxalate 10 mg tablet 10 mg PO DAILY 12/02/20 08/21/21 Unknown History (Lexapro) lisinopril 40 mg tablet 40 mg PO DAILY 12/02/20 08/21/21 Unknown History meloxicam 15 mg tablet 15 mg PO DAILY 12/02/20 08/21/21 Unknown History sitagliptin 25 mg tablet (Januvia) 25 mg PO DAILY 12/02/20 08/21/21 Unknown History tramadol 50 mg tablet 50 mg PO BID PRN 12/02/20 08/21/21 Unknown History celecoxib 200 mg capsule (Celebrex) 200 mg PO DAILY 04/27/21 08/21/21 Unknown History gabapentin 300 mg capsule 300 mg PO TID 04/27/21 08/21/21 Unknown History (Neurontin) pantoprazole 40 mg tablet,delayed 40 mg PO DAILY 04/27/21 08/21/21 Unknown History release (Protonix) risperidone 0.25 mg tablet 0.25 mg PO BID 04/27/21 08/21/21 Unknown History Allergies Allergy/AdvReac Type Severity Reaction Status Date / Time No Known Allergies Allergy Verified 08/21/21 10:32 PFSH Acute PFSH: Medical History (Updated 08/23/21 @ 00:16 by Roly Larson MD) Arthritis Depression Diabetes Dysthymia HTN (hypertension) with goal to be determined Mixed hyperlipidemia Other chronic pain Other fatigue Radiculopathy, lumbar region Vitamin D deficiency, unspecified Surgical History (Updated 08/23/21 @ 00:16 by Roly Larson MD) History of cholecystectomy Family History Other Cancer Hypertension Myocardial infarct Social History (Updated 08/23/21 @ 00:15 by Roly Larson MD) Smoking and tobacco status: never smoked Alcohol intake: never Substance/Drug Use: never Vitals/I&O/Wt Last Vital Signs Temp 98.5 F 08/22/21 19:50 Pulse 74 08/22/21 19:50 Resp 18 08/22/21 19:50 BP 147/69 08/22/21 19:50 Pulse Ox 91 08/22/21 19:50 Physical Exam Const: COMMON NORMALS: no acute distress ORIENTATION/CONSCIOUSNESS: Yes awake, Yes oriented to person and Yes oriented to place; not oriented to time HENMT: COMMON NORMALS: normocephalic HEAD & SCALP: normocephalic Neck/C-Spine: COMMON NORMALS: no JVD Resp: COMMON NORMALS: normal respiratory effort, No retractions, No use of accessory muscles and clear to auscultation bilaterally AUSCULTATION: clear to auscultation bilaterally Cardio: COMMON NORMALS: no JVD, regular rate, regular rhythm, S1 normal heart sound present and S2 normal heart sound present RATE: regular rate RHYTHM: regular rhythm HEART SOUNDS: S1 normal heart sound present and S2 normal heart sound present GI: COMMON NORMALS: Normal to inspection, nondistended, normoactive bowel sounds present, Soft to palpation, non-tender, No hepatosplenomegaly present, no masses and no bruits PALPATION: Yes Soft to palpation and Yes No hepatosplenomegaly present Extremity: COMMON NORMALS: capillary refill normal, no clubbing, cyanosis or edema, no calf tenderness and no pedal edema Neuro: COMMON NORMALS: patient oriented x3 Psych: COMMON NORMALS: mental status grossly normal Data : 08/22/21 21:25 08/22/21 21:25 A&P Assessment and plan (1) Acute UTI: Status: Acute (2) Acute hyperglycemia: Status: Acute (3) Acute alteration in mental status: Status: Acute (4) Pyelonephritis of right kidney: Status: Acute (5) HTN (hypertension) with goal to be determined: Status: Acute (6) Diabetes: Status: Acute Qualifiers: Diabetes mellitus type: type 2 Plan Acute encephalopathy secondary to right pyelonephritis, UTI -Monitor mentation -Neurochecks, aspiration precautions -Continue Rocephin -Follow blood cultures, urine culture -Renal ultrasound -Full code -Lovenox for DVT prophylaxis DAVID secondary to UTI, pyonephritis IV fluids Hyperglycemia, has received insulin in the emergency room blood sugars in the 390s, moderate dose sliding scale, anion gap 18, bicarb 23 Elevated troponin: Serial EKG serial troponins, telemetry monitoring, no chest pain complaints Attestations Medical Necessity Statement*: Patient requires hospitalization, outpatient observation, for right pyelonephritis, acute encephalopathy, hyperglycemia Coding Level of Care Code Acute Automotive General Sales Manager for [facility] Fwd Diagnoses Acute UTI N39.0 Acute hyperglycemia R73.9 Acute alteration in mental status R41.82 Pyelonephritis of right kidney N12 HTN (hypertension) with goal to be determined I10 Diabetes E11.9 Diabetes mellitus type: type 2
--- NOTE | 2021-08-23 02:35 | USR_ITS ---
PROCEDURE INFORMATION: Exam: US Retroperitoneal; Complete; Kidneys and Bladder Exam date and time: 08/23/2021 8:54 AM Age: 75 years old Clinical indication: Other: UTI TECHNIQUE: Imaging protocol: Real-time ultrasound of the retroperitoneum with image documentation. Complete exam focused on the kidneys and bladder. COMPARISON: No relevant prior studies available. FINDINGS: Right kidney: The right kidney measures up to 9.6 cm in length. Normal size, contour and echotexture. No hydronephrosis. No masses. Left kidney: The left kidney measures up to 9.4 cm in length. Normal size, contour and echotexture. No hydronephrosis. No masses. Urinary bladder: Mild trabeculation of the bladder wall. US/US renal BI* [id number] IMPRESSION: 1. Unremarkable sonographic appearance of the kidneys. No hydronephrosis. 2. Mild trabeculation of the bladder wall.
[2021-08-23] MEDS: sodium chloride 0.9% 1,000 ML 50 ML IV (02:56)
--- NOTE | 2021-08-23 03:59 | PC.NURSE ---
This nurse called [facility] and spoke to nurseLaura about patient's medications and vaccination records. Laura stated she was going to fax over the paperwork.
[2021-08-23 05:37] LABS: Estmated Average Glucose 275; Hemoglobin A1C 11.2 % (4.0-6.0)
[2021-08-23 05:43] LABS: Thyroid Stimulating Hormone 1.07 uIU/mL (0.27-4.20)
[2021-08-23] MEDS: enoxaparin 40 mg/0.4 mL Syringe SUBCUT (05:54)
[2021-08-23 06:29] LABS: Glucose Point of Care 348 mg/dL (70-110)
[2021-08-23] MEDS: insulin lispro 100 unit/1 mL SUBCUT ×3 (10:13→17:41)
[2021-08-23] MEDS: risperiDONE 0.25 mg Tablet PO ×2 (10:14→17:41)
[2021-08-23] MEDS: gabapentin 300 mg Capsule PO ×2 (10:14→15:59)
[2021-08-23] MEDS: insulin glargine 100 units/1 mL 5 UNIT SUBCUT (10:14)
[2021-08-23] MEDS: amlodipine 10 mg Tablet PO (10:15)
[2021-08-23] MEDS: atorvastatin 40 mg Tablet 20 MG PO (10:15)
[2021-08-23] MEDS: escitalopram 10 mg Tablet PO (10:15)
[2021-08-23] MEDS: pantoprazole DR 40 mg Tablet PO (10:16)
[2021-08-23 11:51] LABS: Glucose Point of Care 303 mg/dL (70-110)
[2021-08-23 13:25] LABS: Alanine Aminotransferase 30 U/L (0-33); Albumin Level 3.5 g/dL (3.5-5.2); Alkaline Phosphatase 82 IU/L (35-105); Anion Gap 20.2 (5-19); Aspartate Amino Transferase 29 U/L (0-32); Blood Urea Nitrogen 27 mg/dL (8-23); Calcium 9.7 mg/dL (8.5-10.5); Carbon Dioxide 19 mmol/L (22-29); Chloride 101 mmol/L (98-107); Globulin 3.8 g/dL (1.3-4.6); Glucose 371 mg/dL (65-115); Iron 48 ug/dL (37-145); Osmolality Calculated 302 mOsm/kg (285-295); Percent Saturation 22.5 % (20-50); Potassium 4.2 mmol/L (3.5-5.1); Sodium 136 mmol/L (136-145); Total Bilirubin 0.4 mg/dL (0.15-1.2); Total Iron Binding Capacity 213 mcg/dl; Total Protein 7.3 g/dL (6.6-8.7); Unsaturated Iron Binding 165 ug/dL (112-347)
--- NOTE | 2021-08-23 13:27 | PM.PN ---
Subjective Subjective: Admitted overnight. Lying comfortably in bed. Sleeping. Wakes up to verbal cue. Denies any active complaints. Sitter at bedside. Vitals/I&O/Wt Last Vital Signs Temp 98.8 F 08/23/21 12:00 Pulse 79 08/23/21 12:00 Resp 16 08/23/21 12:00 BP 127/81 08/23/21 12:00 Pulse Ox 94 08/23/21 12:00 08/22/21 08/23/21 08/23/21 22:59 06:59 14:59 Intake Total 290 / 290 60 / 60 Output Total 300 / 300 Balance 290 / 290 -240 / -240 Weight last 48 hrs Weight 73.845 kg Physical Exam Const: COMMON NORMALS: no acute distress and patient oriented x3 ORIENTATION/CONSCIOUSNESS: Yes awake, Yes oriented to person and Yes oriented to place; not oriented to time HENMT: COMMON NORMALS: normocephalic HEAD & SCALP: normocephalic Neck/C-Spine: COMMON NORMALS: no JVD Resp: COMMON NORMALS: normal respiratory effort, No retractions, No use of accessory muscles and clear to auscultation bilaterally AUSCULTATION: clear to auscultation bilaterally Cardio: COMMON NORMALS: no JVD, regular rate, regular rhythm, S1 normal heart sound present and S2 normal heart sound present RATE: regular rate RHYTHM: regular rhythm HEART SOUNDS: S1 normal heart sound present and S2 normal heart sound present GI: COMMON NORMALS: Normal to inspection, nondistended, normoactive bowel sounds present, Soft to palpation, non-tender, No hepatosplenomegaly present, no masses and no bruits PALPATION: Yes Soft to palpation and Yes No hepatosplenomegaly present Extremity: COMMON NORMALS: capillary refill normal, no clubbing, cyanosis or edema, no calf tenderness and no pedal edema Neuro: COMMON NORMALS: patient oriented x3 SENSORIUM/ORIENTATION: Yes oriented to person, Yes oriented to place and No oriented to time Psych: COMMON NORMALS: mental status grossly normal Data : 08/22/21 21:25 08/23/21 04:30 Micro: Microbiology 08/22/21 22:06 Blood Culture - Preliminary Blood SPECIMEN COLLECTED 08/22/21 00:09 Blood Culture - Preliminary Blood SPECIMEN COLLECTED A&P Assessment and plan (1) Acute alteration in mental status: Status: Acute (2) Acute UTI: Status: Acute (3) Acute hyperglycemia: Status: Acute (4) Pyelonephritis of right kidney: Status: Acute (5) HTN (hypertension) with goal to be determined: Status: Acute (6) Diabetes: Status: Acute Qualifiers: Diabetes mellitus type: type 2 Plan Acute encephalopathy secondary to right pyelonephritis, UTI Follow-up cultures. For now continue ceftriaxone. Frequent neurochecks, aspiration precautions. DAVID secondary to UTI, pyonephritis: IV fluids Medical reconciliation done for nephrotoxic drugs. Check BMP daily. Type 2 diabetes mellitus: Uncontrolled hyperglycemia. Continue insulin sliding scale. Increase Lantus to 10,000,000 units twice daily. Most likely will need to be discharged on insulin as an outpatient. No DKA. Elevated troponin: Most likely secondary to type II CO. Serial EKG serial troponins, telemetry monitoring, no chest pain complaints HTN: Goal BP 140/90 mmhg. C/w home meds. Full code. Cardiac carb consistent diet. Lovenox for DVT prophylaxis. Attestations Medical Necessity Statement*: Requires further hospitalization for management of altered mental status secondary to UTI, uncontrolled diabetes mellitus Time Spent in Patient Care: Greater than 35 minutes Coding Level of Care Code Acute Physical Science Technician for [facility] Fwd Diagnoses Acute UTI N39.0 Acute hyperglycemia R73.9 Acute alteration in mental status R41.82 Pyelonephritis of right kidney N12 HTN (hypertension) with goal to be determined I10 Diabetes E11.9 Diabetes mellitus type: type 2
[2021-08-23] MEDS: TRAMadol 50 mg Tablet PO (15:59)
[2021-08-23] MEDS: acetaminophen 325 mg Tablet 650 MG PO (16:00)
[2021-08-23 16:56] LABS: Glucose Point of Care 175 mg/dL (70-110)
[2021-08-23] MEDS: insulin glargine 100 units/1 mL 10 UNIT SUBCUT (17:41)
[2021-08-23 21:11] LABS: Glucose Point of Care 164 mg/dL (70-110)
[2021-08-23] MEDS: cefTRIAXone 1,000 MG in sodium chloride 0.9% (plus) 50 ML 100 MG IV (21:44)
[2021-08-23] MEDS: sodium chloride 0.9% 1,000 ML 75 ML IV (23:57)
[2021-08-24] VITALS (11 sets, daily range): BP systolic 122–158; BP diastolic 66–84; PULSE 64–87; RESP 16–18; TEMP 36.4–37.6; O2SAT 89–96
[2021-08-24 06:05] LABS: Basophils % 0.6 %; Eosinophils # 0.2 10^3/uL (0.0-0.8); Eosinophils % 3.8 %; Hematocrit 42.2 % (37.0-47.0); Hemoglobin 13.6 g/dL (11.5-15.3); Lymphocytes # 1.4 10^3/uL (0.8-4.8); Lymphocytes % 21.3 %; Mean Corpuscular HGB Conc 32.2 g/dL (30.0-36.0); Mean Corpuscular Hemoglobin 29.7 pg (28.0-34.0); Mean Corpuscular Volume 92.1 fl (81-99); Mean Platelet Volume 11.3 fL (7.4-10.4); Monocytes # 0.6 10^3/uL (0.2-0.9); Monocytes % 9.5 %; Neutrophils # 4.13 10^3/uL (1.8-7.7); Neutrophils % 64.5 %; Nucleated Red Blood Cells % 0 %; Platelet Count 203 10^3/cmm (130-400); Red Blood Count 4.58 10^6/uL (4.1-5.3); Red Cell Distribution Width 13.5 % (12.1-15.1); White Blood Count 6.4 10^3/uL (4.0-10.0)
[2021-08-24 06:32] LABS: Alanine Aminotransferase 28 U/L (0-33); Albumin Level 3.1 g/dL (3.5-5.2); Alkaline Phosphatase 82 IU/L (35-105); Aspartate Amino Transferase 25 U/L (0-32); Blood Urea Nitrogen 17 mg/dL (8-23); Calcium 9.4 mg/dL (8.5-10.5); Carbon Dioxide 21 mmol/L (22-29); Chloride 103 mmol/L (98-107); Glucose 285 mg/dL (65-115); Osmolality Calculated 294 mOsm/kg (285-295); Sodium 136 mmol/L (136-145); Total Bilirubin 0.5 mg/dL (0.15-1.2); Total Protein 7.1 g/dL (6.6-8.7)
[2021-08-24 07:38] LABS: Chol HDL Ratio 15.76 mg/dL (0.0-4.40); Cholesterol 268 mg/dL (0-200); HDL Cholesterol 17 mg/dL (60-100); LDL Cholesterol Calculated 198 mg/dL (50-129); Triglycerides 265 mg/dL (0-150); VLDL Cholestrol Calculation 53 mg/dL (0-30)
[2021-08-24 07:51] LABS: Glucose Point of Care 269 mg/dL (70-110)
[2021-08-24] MEDS: atorvastatin 40 mg Tablet 20 MG PO (09:23)
[2021-08-24] MEDS: gabapentin 300 mg Capsule PO ×3 (09:24→20:52)
[2021-08-24] MEDS: amlodipine 10 mg Tablet PO (09:24)
[2021-08-24] MEDS: risperiDONE 0.25 mg Tablet PO ×2 (09:24→17:58)
[2021-08-24] MEDS: pantoprazole DR 40 mg Tablet PO (09:24)
[2021-08-24] MEDS: escitalopram 10 mg Tablet PO (09:24)
--- NOTE | 2021-08-24 09:28 | PC.NURSE ---
Patient refused Insulin this am. Very adamant she does not take insulin and will have no part in it. This nurse had to persuade patient to take daily pills. She is very paranoid something is going to happen to her if she takes all of the pills be given to her.
[2021-08-24 10:58] LABS: Glucose Point of Care 262 mg/dL (70-110)
[2021-08-24] MEDS: insulin lispro 100 unit/1 mL SUBCUT ×2 (11:45→17:57)
[2021-08-24] MEDS: insulin glargine 100 units/1 mL 10 UNIT SUBCUT ×2 (11:46→17:58)
--- NOTE | 2021-08-24 11:54 | P.PN_ITS ---
Subjective Subjective: Patient was seen this morning, she is alert to person, not to place, not to time, she tells me that she is currently living with friends, they help take care of her, according to nursing staff she is from a residential Later on in the afternoon, patient became agitated with nursing staff, having episodes of confusion removed her IV, refused insulin At noon, patient was agreeable to IV placement, IV was placed, agreeable for insulin placement, according to the staff she is watching TV quietly Vitals/I&O/Wt Last Vital Signs Temp 97.6 F 08/24/21 11:35 Pulse 66 08/24/21 11:35 Resp 18 08/24/21 11:35 BP 149/83 08/24/21 11:35 Pulse Ox 94 08/24/21 11:35 08/23/21 08/24/21 08/24/21 22:59 06:59 14:59 Intake Total 1290.000 / 1470.000 380 / 1850.000 Balance 1290.000 / 1170.000 380 / 1550.000 Weight last 48 hrs Weight 73.845 kg Physical Exam Const: COMMON NORMALS: no acute distress EXAM LIMITATIONS: altered mental status Resp: COMMON NORMALS: normal respiratory effort, No retractions, No use of accessory muscles and clear to auscultation bilaterally AUSCULTATION: clear to auscultation bilaterally Cardio: COMMON NORMALS: regular rate, regular rhythm, S1 normal heart sound present and S2 normal heart sound present RATE: regular rate RHYTHM: regular rhythm HEART SOUNDS: S1 normal heart sound present and S2 normal heart sound present GI: COMMON NORMALS: Normal to inspection, nondistended, normoactive bowel sounds present, Soft to palpation, non-tender and No hepatosplenomegaly present PALPATION: Yes Soft to palpation and Yes No hepatosplenomegaly present Extremity: COMMON NORMALS: no pedal edema NARRATIVE EXTREMITY EXAM: Alert to person, not to place, not to time, confused Data : 08/24/21 05:05 08/24/21 05:05 Micro: Microbiology 08/22/21 20:32 Urine Culture - Preliminary Urine,Clean Catch Gram Negative Rods 08/22/21 22:06 Blood Culture - Preliminary Blood NEGATIVE TO DATE 08/22/21 00:09 Blood Culture - Preliminary Blood NEGATIVE TO DATE A&P Assessment and plan (1) Acute alteration in mental status: Status: Acute (2) Acute UTI: Status: Acute (3) Acute hyperglycemia: Status: Acute (4) Pyelonephritis of right kidney: Status: Acute (5) HTN (hypertension) with goal to be determined: Status: Acute (6) Diabetes: Status: Acute Qualifiers: Diabetes mellitus type: type 2 Plan Acute encephalopathy secondary to right pyelonephritis, UTI Continues to have waxing and waning mentation Possible component of underlying dementia? Follow-up cultures. For now continue ceftriaxone. Frequent neurochecks, aspiration precautions. DAVID secondary to UTI, pyonephritis: IV fluids Medical reconciliation done for nephrotoxic drugs. Check BMP daily. Type 2 diabetes mellitus: Uncontrolled hyperglycemia. Continue insulin sliding scale. Increase Lantus to 10 units twice daily Most likely will need to be discharged on insulin as an outpatient. No DKA. Elevated troponin: Most likely secondary to type II DC. Serial EKG serial troponins, telemetry monitoring, no chest pain complaints HTN: Goal BP 140/90 mmhg. C/w home meds. Full code. Cardiac carb consistent diet. Lovenox for DVT prophylaxis. PT OT, Will require nursing placement Attestations Medical Necessity Statement*: Patient requires hospitalization for acute encephalopathy secondary pyelonephritis, UTI, DAVID, type 2 diabetes mellitus, uncontrolled blood sugars Coding Level of Care Code Acute Kiln Drawer for [facility] Fw Diagnoses Acute alteration in mental status R41.82 Acute UTI N39.0 Acute hyperglycemia R73.9 Pyelonephritis of right kidney N12 HTN (hypertension) with goal to be determined I10 Diabetes E11.9 Diabetes mellitus type: type 2
[2021-08-24] MEDS: TRAMadol 50 mg Tablet PO (16:53)
[2021-08-24 16:56] LABS: Glucose Point of Care 224 mg/dL (70-110)
[2021-08-24] MEDS: sodium chloride 0.9% 1,000 ML 75 ML IV (20:55)
[2021-08-24] MEDS: cefTRIAXone 1,000 MG in sodium chloride 0.9% (plus) 50 ML 100 MG IV (20:56)
[2021-08-24 22:19] LABS: Glucose Point of Care 321 mg/dL (70-110)
[2021-08-25] VITALS: BP 123/65; PULSE 82; RESP 117; TEMP 36.7; O2SAT 95
[2021-08-25 05:57] LABS: Basophils % 0.7 %; Eosinophils # 0.3 10^3/uL (0.0-0.8); Eosinophils % 4.9 %; Hematocrit 41.5 % (37.0-47.0); Hemoglobin 13.9 g/dL (11.5-15.3); Lymphocytes # 1.5 10^3/uL (0.8-4.8); Lymphocytes % 28.7 %; Mean Corpuscular HGB Conc 33.5 g/dL (30.0-36.0); Mean Corpuscular Hemoglobin 30.3 pg (28.0-34.0); Mean Corpuscular Volume 90.6 fl (81-99); Mean Platelet Volume 11.1 fL (7.4-10.4); Monocytes # 0.6 10^3/uL (0.2-0.9); Monocytes % 10.8 %; Neutrophils # 2.92 10^3/uL (1.8-7.7); Neutrophils % 54.5 %; Nucleated Red Blood Cells % 0 %; Platelet Count 221 10^3/cmm (130-400); Red Blood Count 4.58 10^6/uL (4.1-5.3); Red Cell Distribution Width 13.2 % (12.1-15.1); White Blood Count 5.4 10^3/uL (4.0-10.0)
[2021-08-25] MEDS: enoxaparin 40 mg/0.4 mL Syringe SUBCUT (06:08)
[2021-08-25 06:09] LABS: Alanine Aminotransferase 33 U/L (0-33); Albumin Level 3.3 g/dL (3.5-5.2); Alkaline Phosphatase 79 IU/L (35-105); Anion Gap 15.8 (5-19); Aspartate Amino Transferase 35 U/L (0-32); Blood Urea Nitrogen 16 mg/dL (8-23); C Reactive Protein 62.5 mg/L (0.0-4.9); Carbon Dioxide 20 mmol/L (22-29); Chloride 101 mmol/L (98-107); Glucose 329 mg/dL (65-115); Magnesium 1.6 mg/dL (1.7-2.3); Osmolality Calculated 290 mOsm/kg (285-295); Potassium 3.8 mmol/L (3.5-5.1); Sodium 133 mmol/L (136-145); Total Bilirubin 0.4 mg/dL (0.15-1.2); Total Protein 7.3 g/dL (6.6-8.7)
[2021-08-25 06:18] LABS: Glucose Point of Care 288 mg/dL (70-110)
[2021-08-25] MEDS: acetaminophen 325 mg Tablet 650 MG PO (06:55)
[2021-08-25 07:26] VITALS: BP 147/76; PULSE 76; RESP 18; TEMP 36.4; O2SAT 90
--- NOTE | 2021-08-25 07:35 | PC.NURSE ---
Bedside report rec & MR reviewed. Adm dx includes AMS & UTI. Upon rounds she was resting bed. POC is possible SNF placement upon dc.
[2021-08-25] MEDS: atorvastatin 40 mg Tablet 20 MG PO (08:07)
[2021-08-25] MEDS: escitalopram 10 mg Tablet PO (08:08)
[2021-08-25] MEDS: risperiDONE 0.25 mg Tablet PO (08:08)
[2021-08-25] MEDS: gabapentin 300 mg Capsule PO ×2 (08:08→16:42)
[2021-08-25] MEDS: amlodipine 10 mg Tablet PO (08:08)
[2021-08-25] MEDS: pantoprazole DR 40 mg Tablet PO (08:08)
[2021-08-25] MEDS: insulin lispro 100 unit/1 mL SUBCUT ×2 (08:58→11:57)
[2021-08-25] MEDS: insulin glargine 100 units/1 mL 10 UNIT SUBCUT (08:59)
[2021-08-25] MEDS: magnesium sulfate premix 2 GM/50 ML PIGGYBACK IV (09:00)
--- NOTE | 2021-08-25 11:12 | P.DS_ITS ---
Discharge Providers Date of Admission: 08/23/21 10:51 Date of Discharge: August 25, 2021 Attending Provider at Admission: Roly Larson MD Attending Provider at Discharge: Roly Larson MD Primary Care Provider: Law Manzanares MD Diagnoses at Discharge Discharge Diagnosis (1) Acute alteration in mental status: Status: Acute (2) Acute UTI: Status: Acute (3) Acute hyperglycemia: Status: Acute (4) Pyelonephritis of right kidney: Status: Acute (5) HTN (hypertension) with goal to be determined: Status: Acute (6) Diabetes: Status: Acute Qualifiers: Diabetes mellitus type: type 2 Reason for Visit Reason for Visit: [facility] Hospital Course Hospital Course Anat Mark is a 75 year old female a past medical history of pxg-qgzpheq-rdiyeupcc type 2 diabetes mellitus, depression, hypertension, baseline dementia, who presents [facility] due to complaints of increased fatigue, and increased confusion. Patient was admitted to [facility] for acute encephalopathy secondary to right pyelonephritis, UTI, blood cultures have been unremarkable, urine cultures so far show gram-negative's, identification sensitivities have been pending, discharged on 7 remaining days of ciprofloxacin. In terms of mentation, at discharge she remains alert to person, to place, but not to time, I suspect that this is her baseline mentation given her underlying dementia. Nonetheless she follows commands, she answers most questions appropriately. Patient also had acute kidney injury secondary to UTI, pyelonephritis, received IV fluids, creatinine improved on discharge For type 2 diabetes mellitus, uncontrolled, discharged on insulin therapy. -Monitor blood sugars 4 times daily -Lantus 10 units twice daily -If blood sugar greater than 500 call physician -If blood sugar less than 60, drink or juice or eat a hard candy and call physician -Inject insulin, NovoLog, subcu, 3 times daily, after meals, based on sliding scale provided below -Insulin sliding scale Insulin sliding fingerstick? Insulin 141-180?2 units/sq 181-220?4 units/sq 221-260?6 units/sq 261-300?8 units/sq 301-350 10 units/sq 351-400 12 units/sq > 400? 14 units/sq Patient was discharged to [facility] Physical Exam Const: COMMON NORMALS: no acute distress ORIENTATION/CONSCIOUSNESS: Yes awake, Yes oriented to person and Yes oriented to place; not oriented to time Resp: COMMON NORMALS: normal respiratory effort, No retractions, No use of accessory muscles and clear to auscultation bilaterally AUSCULTATION: clear to auscultation bilaterally Cardio: COMMON NORMALS: regular rate, regular rhythm, S1 normal heart sound present and S2 normal heart sound present RATE: regular rate RHYTHM: regular rhythm HEART SOUNDS: S1 normal heart sound present and S2 normal heart sound present GI: COMMON NORMALS: Normal to inspection, nondistended, normoactive bowel sounds present, Soft to palpation, non-tender and No hepatosplenomegaly present PALPATION: Yes Soft to palpation and Yes No hepatosplenomegaly present Extremity: COMMON NORMALS: no pedal edema Neuro: SENSORIUM/ORIENTATION: Yes oriented to person, Yes oriented to place and No oriented to time Psych: COMMON NORMALS: mental status grossly normal Discharge Data Studies Completed and Pending Completed Studies During Hospitalization Category Date Time Status CT head wo con* [id number] Urgent Cat Scan 08/22/21 19:13 Completed XR chest 1V portable [id number] Stat Exams 08/22/21 19:13 Completed US renal BI* [id number] Routine Ultrasound 08/23/21 02:35 Completed Pending at discharge Category Date Time Status Blood Culture Stat Lab 08/22/21 22:06 Results C Reactive Protein AM LABS Lab 08/26/21 04:00 Ordered C Reactive Protein AM LABS Lab 08/27/21 04:00 Ordered Complete Blood Count w/Auto AM LABS Lab 08/26/21 04:00 Ordered Complete Blood Count w/Auto AM LABS Lab 08/27/21 04:00 Ordered Comprehensive Metabolic Panel AM LABS Lab 08/26/21 04:00 Ordered Comprehensive Metabolic Panel AM LABS Lab 08/27/21 04:00 Ordered Magnesium AM LABS Lab 08/26/21 04:00 Ordered Magnesium AM LABS Lab 08/27/21 04:00 Ordered Procalcitonin AM LABS Lab 08/26/21 04:00 Ordered Procalcitonin AM LABS Lab 08/27/21 04:00 Ordered Urine Culture Stat Lab 08/22/21 20:32 Results Radiology Impressions Chest X-Ray 08/22/21 19:13 IMPRESSION: No acute findings. Head CT 08/22/21 19:13 IMPRESSION: 1. Negative for intracranial hemorrhage or mass effect 2. Moderate diffuse white matter disease likely reflecting chronic microvascular ischemic changes. Renal Ultrasound 08/23/21 02:35 IMPRESSION: 1. Unremarkable sonographic appearance of the kidneys. No hydronephrosis. 2. Mild trabeculation of the bladder wall. Laboratory Results WBC 5.4 10^3/uL (4.0-10.0) 08/25/21 05:10 RBC 4.58 10^6/uL (4.1-5.3) 08/25/21 05:10 Hgb 13.9 g/dL (11.5-15.3) 08/25/21 05:10 Hct 41.5 % (37.0-47.0) 08/25/21 05:10 MCV 90.6 fl (81-99) 08/25/21 05:10 MCH 30.3 pg (28.0-34.0) 08/25/21 05:10 MCHC 33.5 g/dL (30.0-36.0) 08/25/21 05:10 RDW 13.2 % (12.1-15.1) 08/25/21 05:10 Plt Count 221 10^3/cmm (130-400) 08/25/21 05:10 MPV 11.1 fL (7.4-10.4) H 08/25/21 05:10 Neut % (Auto) 54.5 % 08/25/21 05:10 Lymph % (Auto) 28.7 % 08/25/21 05:10 Howell % (Auto) 10.8 % 08/25/21 05:10 Eos % (Auto) 4.9 % 08/25/21 05:10 Baso % (Auto) 0.7 % 08/25/21 05:10 Neut # (Auto) 2.92 10^3/uL (1.8-7.7) 08/25/21 05:10 Lymph # (Auto) 1.5 10^3/uL (0.8-4.8) 08/25/21 05:10 Howell # (Auto) 0.6 10^3/uL (0.2-0.9) 08/25/21 05:10 Eos # (Auto) 0.3 10^3/uL (0.0-0.8) 08/25/21 05:10 Baso # (Auto) 0.0 10^3/uL (0.0-0.1) 08/25/21 05:10 Nucleated RBC % (auto) 0 % 08/25/21 05:10 Nucleated RBCs # 0.0 /100WBC 08/25/21 05:10 Specimen Type Arterial 08/22/21 22:22 Sample Site Radial, left 08/22/21 22:22 ABG pH 7.40 (7.35-7.45) 08/22/21 22:22 ABG pCO2 40.7 mmHg (35-45) 08/22/21 22:22 ABG pO2 72.6 mmHg (80.0-100.0) L 08/22/21 22:22 ABG HCO3 25.3 mmol/L (22-26) 08/22/21 22: ABG Base Excess 0.4 mmol/L (-2.0-2.0) 08/22/21 22:22 Iban Test Pos 08/22/21 22:22 Hematocrit 42.6 % (37-47) 08/22/21 22:22 O2 Delivery Device Nc 08/22/21 22:22 O2 Liters/Min 2.0 % 08/22/21 22:22 Stripper Soft Plastic ID Buttr 08/22/21 22:22 Sodium 133 mmol/L (136-145) L 08/25/21 05:10 Potassium 3.8 mmol/L (3.5-5.1) 08/25/21 05:10 Chloride 101 mmol/L (98-107) 08/25/21 05:10 Carbon Dioxide 20 mmol/L (22-29) L 08/25/21 05:10 Anion Gap 15.8 (5-19) 08/25/21 05:10 BUN 16 mg/dL (8-23) 08/25/21 05:10 Creatinine 0.7 mg/dL (0.5-0.9) 08/25/21 05:10 GFR Calculation Not Reportable 08/25/21 05:10 Glucose 329 mg/dL (65-115) H 08/25/21 05:10 POC Glucose 288 mg/dL (70-110) H 08/25/21 06:11 Estimat Average Glucose 275 08/23/21 04:30 Hemoglobin A1c 11.2 % (4.0-6.0) H 08/23/21 04:30 Calculated Osmolality 290 mOsm/kg (285-295) 08/25/21 05:10 Calcium 10.0 mg/dL (8.5-10.5) 08/25/21 05:10 Magnesium 1.6 mg/dL (1.7-2.3) L 08/25/21 05:10 Iron 48 ug/dL (37-145) 08/23/21 04:30 TIBC 213 mcg/dl 08/23/21 04:30 % Saturation 22.5 % (20-50) 08/23/21 04:30 Unsat Iron Binding 165 ug/dL (112-347) 08/23/21 04:30 Total Bilirubin 0.4 mg/dL (0.15-1.2) 08/25/21 05:10 AST 35 U/L (0-32) H 08/25/21 05:10 ALT 33 U/L (0-33) 08/25/21 05:10 Alkaline Phosphatase 79 IU/L (35-105) 08/25/21 05:10 Ammonia 17 umol/L (11-51) 08/22/21 21:25 Troponin T Baseline 42 ng/L (0-10) H 08/22/21 21:25 Troponin T 120 Minute 40.44 ng/L (0-10) H 08/22/21 23:25 Delta Troponin T -1.56 ABS# (0-10) L 08/22/21 23:25 C-Reactive Protein 62.5 mg/L (0.0-4.9) H 08/25/21 05:10 NT-Pro-B Natriuret Pep 361 pg/mL (0-450) 08/22/21 21:25 Total Protein 7.3 g/dL (6.6-8.7) 08/25/21 05:10 Albumin 3.3 g/dL (3.5-5.2) L 08/25/21 05:10 Globulin 4.0 g/dL (1.3-4.6) 08/25/21 05:10 Triglycerides 265 mg/dL (0-150) H 08/24/21 05:05 Cholesterol 268 mg/dL (0-200) H 08/24/21 05:05 LDL Cholesterol, Calc 198 mg/dL (50-129) H 08/24/21 05:05 Total VLDL Cholesterol 53 mg/dL (0-30) H 08/24/21 05:05 HDL Cholesterol 17 mg/dL (60-100) L 08/24/21 05:05 Cholesterol/HDL Ratio 15.76 mg/dL (0.0-4.40) H 08/24/21 05:05 Lipase 22 U/L (13-60) 08/22/21 21: Procalcitonin 0.50 ng/mL (0-0.5) 08/25/21 05:10 TSH 1.07 uIU/mL (0.27-4.20) 08/23/21 04:30 Urine Color Yellow (Yellow) 08/22/21 20: Urine Appearance Sl cloudy (CLEAR) A 08/22/21 20: Urine pH 5 (5-7) 08/22/21 20: Ur Specific [place] 1.015 (1.005-1.030) 08/22/21 20: Urine Protein Neg (Negative) 08/22/21 20: Urine Glucose (UA) 4+ (Normal) H 08/22/21 20: Urine Ketones Negative (Negative) 08/22/21 20: Urine Blood 2+ (Negative) H 08/22/21 20: Urine Nitrate Negative (Negative) 08/22/21 20: Urine Bilirubin Neg (Negative) 08/22/21 20: Urine Urobilinogen Norm mg/dL (Negative) 08/22/21 20: Ur Leukocyte Esterase 2+ (Negative) H 08/22/21 20:32 Urine RBC 10-15 /hpf (0-2) H 08/22/21 20:32 Urine WBC >100 /hpf (0-5) H 08/22/21 20:32 Ur Squamous Epith Cells 5-10 /hpf (0-5) H 08/22/21 20:32 Amorphous Sediment Not Reportable 08/22/21 20: Urine Bacteria 4+ /hpf (NONE) H 08/22/21 20: Urine Yeast 1+ /hpf H 08/22/21 20:32 Salicylates < 0.3 mg/dL (3-10) L 08/22/21 21: Acetaminophen < 5.0 ug/mL (10-30) L 08/22/21 21: Serum Ketones Negative (Negative) 08/22/21: Coronavirus 229E (PCR) Not detected (NOT DETECT) 03/26/22 21:28 SARS-CoV-2 (PCR) Not detected (NOT DETECT) 08/22/21 21:28 Vitals Last Vital Signs Temp 97.6 F 08/25/21 07:26 Pulse 76 08/25/21 07:26 Resp 18 08/25/21 07:26 BP 147/76 08/25/21 07:26 Pulse Ox 90 08/25/21 07:26 Discharge Plan Discharge Patient Disposition: Xfer SNF Condition: Stable Prescriptions: New ciprofloxacin HCl [Cipro] 500 mg tablet 500 mg PO BID 7 Days Qty: 14 0RF insulin aspart U-100 [Novolog Flexpen U-100 Insulin] 100 unit/mL (3 mL) insulin pen See Rx Instructions .ROUTE .COMPLEX Qty: 15 0RF Rx Instructions: Inject, subcu, 3 times daily, after meals, based on sliding scale provided Sydnee KwikPen U-100 Insulin 100 unit/mL (3 mL) insulin pen 10 unit SUBCUT Q12H 30 Days Qty: 6 0RF Continued gabapentin [Neurontin] 300 mg capsule 300 mg PO TID 0RF pantoprazole [Protonix] 40 mg tablet,delayed release (DR/EC) 40 mg PO DAILY 0RF risperidone 0.25 mg tablet 0.25 mg PO BID 0RF Januvia 25 mg tablet 25 mg PO DAILY 0RF escitalopram oxalate [Lexapro] 10 mg tablet 20 mg PO DAILY 0RF tramadol 50 mg tablet 50 mg PO BID PRN (Reason: Pain) 0RF amlodipine 10 mg tablet 10 mg PO DAILY Qty: 30 0RF Changed lisinopril 40 mg tablet 20 mg PO DAILY Qty: 0 0RF Discontinued celecoxib [Celebrex] 200 mg capsule 200 mg PO DAILY 0RF Discharge Orders: Discharge Order (Routine); Ordered 08/25/21 Ordered By: Roly Larson Referrals: [facility] [Outside] Law Manzanares MD [Primary Care Provider] - Discharge Diet: Diabetic Discharge Activity: Resume usual activity Patient Instructions: Opioid Safety Activity Restrictions/Additional Instructions: -Take antibiotics as prescribed -Monitor blood sugars 4 times daily -Lantus 10 units twice daily -If blood sugar greater than 500 call physician -If blood sugar less than 60, drink or juice or eat a hard candy and call physician -Inject insulin, NovoLog, subcu, 3 times daily, after meals, based on sliding scale provided below -Insulin sliding scale Insulin sliding fingerstick? Insulin 141-180?2 units/sq 181-220?4 units/sq 221-260?6 units/sq 261-300?8 units/sq 301-350 10 units/sq 351-400 12 units/sq > 400? 14 units/sq Discharge Attestations Time Spent in Discharge Care*: less than 30 min Quality Metrics Clinical Quality Measures [ No reported AMI, CVA or VTE this stay] Coding Level of Care Code Acute Chg FW DC note Exam Detailed Diagnoses Acute alteration in mental status R41.82 Acute UTI N39.0 Acute hyperglycemia R73.9 Pyelonephritis of right kidney N12 HTN (hypertension) with goal to be determined I10 Diabetes E11.9 Diabetes mellitus type: type 2
[2021-08-25 11:21] LABS: Glucose Point of Care 251 mg/dL (70-110)
[2021-08-25 11:52] VITALS: BP 147/85; PULSE 67; RESP 18; TEMP 36.6; O2SAT 90
--- NOTE | 2021-08-25 11:52 | PC.NURSE ---
Report called to Jesse Liu ([facility]). Pt will return to SNF via Medicaid Transport.
[2021-08-25 14:00] VITALS: PULSE 80
[2021-08-25 15:19] VITALS: BP 144/77; PULSE 96; RESP 18; TEMP 36.6; O2SAT 92
[2021-08-25 17:03] LABS: Glucose Point of Care 262 mg/dL (70-110)
[2021-08-25 17:43] VITALS: BP 144/77; PULSE 96; RESP 18; TEMP 36.6; O2SAT 92
== END 2021-08-25 17:25 | disposition skilled nursing facility (03) | DRG 690 ==
LOC: ER 23:38 → MEDSURG 23:50
PROVIDERS: Emergency Medicine; Student in an Organized Health Care Education/Training Program; Admitting Provider Family Medicine; Emergency Provider Emergency Medicine; PCP Internal Medicine; Visit Provider Family Medicine
DX: N10 Acute pyelonephritis (principal); G93.40 Encephalopathy, unspecified; B96.20 Unspecified Escherichia coli [E. coli] as the cause of diseases classified elsewhere; E11.65 Type 2 diabetes mellitus with hyperglycemia; I10 Essential (primary) hypertension; F03.90 Unspecified dementia, unspecified severity, without behavioral disturbance, psychotic disturbance, mood disturbance, and anxiety; E78.5 Hyperlipidemia, unspecified; N17.9 Acute kidney failure, unspecified; F32.A Depression, unspecified; Z79.84 Long term (current) use of oral hypoglycemic drugs
CPT/HCPCS: 36415; 36416; 36600; 70450; 71045; 76770; 80053; 80061; 80307; 81001; 82009; 82140; 82803; 82962; 83036; 83540; 83550; 83690; 83735; 83880; 84145; 84443; 84484; 85025; 86140; 87040; 87077; 87086; 87186; 87635; 93005; 94664; 96365; 96372; 96375; 99285; G0378; J0696; J1650; J1815 ×2; J3475; J7030

== ENCOUNTER 2022-02-04 10:11 | Inpatient (IN) | payer MEDICARE, MEDICAID, SELFPAY ==
[2022-02-04] VITALS (8 sets, daily range): BP systolic 128–171; BP diastolic 70–79; PULSE 83–86; RESP 14–18; TEMP 36.7–36.9; O2SAT 91–97; BMI 28.3
--- NOTE | 2022-02-04 10:19 | XR_ITS ---
WS: [id number] Portable AP upright chest, 02/04/2022 Clinical Data: dyspnea/cough Comparison: Portable chest, 08/22/2021. Findings: No nodules, masses or effusions are seen. The heart is normal. The pulmonary vascularity is not increased. No pneumonia or pneumothorax is seen. The aortic arch and descending thoracic aorta s how calcifications. Monitor leads are on the chest wall. XR/XR chest 1V portable [id number] Impression: Atherosclerosis.
--- NOTE | 2022-02-04 10:19 | ECG_ITS ---
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 Measurements Intervals [place] Rate: 88 P: 55 GA: 132 QRS: 123 QRSD: 122 T: -17 QT: 398 QTc: 483 Interpretive Statements SINUS RHYTHM WITH FREQUENT SUPRAVENTRICULAR PREMATURE COMPLEXES POSSIBLE LEFT ATRIAL ENLARGEMENT [-0.1mV P-WAVE IN V1/V2] POSSIBLE RIGHT VENTRICULAR HYPERTROPHY [SOME/ALL OF: PROMINENT R IN V1, LATE TRANSITION, RAD, TAMMI, SSS] NONSPECIFIC T-WAVE ABNORMALITY Compared to ECG 08/22/2021 21:22:20 T-wave abnormality now present Incomplete right bundle-branch block no longer present Electronically Signed On 02-05-2022 14:33:18 CDT by Juanito Bowling M.D. [id number]
--- NOTE | 2022-02-04 11:09 | W.ED.GENADLT ---
HPI - General Adult General: Chief complaint: General Medical Stated complaint: decreased loc Time Seen by Provider: 02/04/22 10:18 History of Present Illness: 76-year-old female presents to the emergency room via EMS from [facility]. She is reported to have an O2 sat in 80s when EMS was called. EMS reported that they found the patient she was cold to the touch there were unable to get a good O2 sat until her extremities were warmed up once they were warmed up her O2 sats remained 97% on room air she had a core temp of 98 for she has some baseline dementia is nonresponsive all of her history is received from EMS and old records. There is no reported fever no report of vomiting or diarrhea. She is nonresponsive to verbal stimuli at this time. She is awake and moving but does not respond to any questions or commands. Does not appear to be any focal neurologic deficits. Onset (ago): unknown Severity: mild Relieving factors: none Exacerbating factors: none Associated symptoms: Reports confusion and malaise; Deny chest pain, cough or rash Treatments prior to arrival: other (Oxygen) Review of Systems Const: Reports: malaise Card: Denies: chest pain Skin/Breast: Denies: rash Neuro: Reports: confusion [facility] ED PFSH: Medical History Arthritis Depression Diabetes Diabetes type 2, uncontrolled Dysthymia HTN (hypertension) with goal to be determined Mixed hyperlipidemia Other chronic pain Other fatigue Radiculopathy, lumbar region Vitamin D deficiency, unspecified Surgical History History of cholecystectomy Family History Other Cancer Hypertension Myocardial infarct Social History Smoking and tobacco status: never smoked Alcohol intake: never Physical Exam Const: ORIENTATION/CONSCIOUSNESS: Yes awake HENMT: COMMON NORMALS: normocephalic, atraumatic and hearing grossly normal bilaterally HEAD & SCALP: normocephalic and atraumatic Resp: COMMON NORMALS: normal respiratory effort, No retractions, No use of accessory muscles and clear to auscultation bilaterally AUSCULTATION: clear to auscultation bilaterally Cardio: COMMON NORMALS: regular rate, regular rhythm and No murmurs present (Cardio) RATE: regular rate RHYTHM: regular rhythm GI: COMMON NORMALS: Soft to palpation and No hepatosplenomegaly present AUSCULTATION: Yes normoactive bowel sounds PALPATION: Yes Soft to palpation, No Tenderness to palpation present (GI), No Guarding due to palpation present (GI) and Yes No hepatosplenomegaly present Extremity: COMMON NORMALS: normal to inspection, capillary refill normal, no clubbing, cyanosis or edema, no calf tenderness and no pedal edema Skin: COMMON NORMALS: no rashes or lesions noted GENERAL SKIN EXAM: no rashes or lesions noted Course Vital Signs: Vital signs: Vital Signs Temperature 98.8 F 02/08/22 16:00 Pulse Rate 75 02/08/22 16:00 Respiratory Rate 16 02/08/22 16:00 Blood Pressure 150/85 02/08/22 16:00 Pulse Oximetry 96 02/08/22 16:00 Oxygen Delivery Ma thod 02/08/22 16:00 MDM - General Adult Medical Decision Making UTI with sepsis admit initiate antibiotics. Labs imaging and EKG reviewed as found in the chart. Medical Records I reviewed the patient's medical records. Lab Data I reviewed the patient's lab results. : 02/07/22 04:17 02/08/22 04:09 Radiology Impressions Chest X-Ray 02/04/22 10:19 Impression: Atherosclerosis. Abdomen/Pelvis CT 02/04/22 11:49 IMPRESSION: 1. No obstructing renal or ureteral calculi. 2. Dense sigmoid constipation. Sigmoid diverticulosis. No evidence of acute diverticulitis. 3. Diffuse bladder wall thickening with air in the nondependent bladder can be seen with cystitis/UTI. Recommend correlation for bladder instrumentation. 4. Prior cholecystectomy. 5. Small esophageal hiatal hernia. 6. Densely calcified abdominal aorta with the distal narrowing. Mid aorta measures approximately 2.3 x 2.5 cm AP by transverse. Laboratory Results WBC 11.5 10^3/uL (4.0-10.0) H 02/04/22 11:10 RBC 5.33 10^6/uL (4.1-5.3) H 02/04/22 11:10 Hgb 15.6 g/dL (11.5-15.3) H 02/04/22 11:10 Hct 48.4 % (37.0-47.0) H 02/04/22 11:10 MCV 90.8 fl (81-99) 02/04/22 11:10 MCH 29.3 pg (28.0-34.0) 02/04/22 11:10 MCHC 32.2 g/dL (30.0-36.0) 02/04/22 11:10 RDW 14.4 % (12.1-15.1) 02/04/22 11:10 Plt Count 225 10^3/cmm (130-400) 02/04/22 11:10 MPV 10.9 fL (7.4-10.4) H 02/04/22 11:10 Neut % (Auto) 89.5 % 02/04/22 11:10 Lymph % (Auto) 5.6 % 02/04/22 11:10 Davis % (Auto) 4.2 % 02/04/22 11:10 Eos % (Auto) 0.1 % 02/04/22 11:10 Baso % (Auto) 0.3 % 02/04/22 11:10 Neut # (Auto) 10.31 10^3/uL (1.8-7.7) H 02/04/22 11:10 Lymph # (Auto) 0.7 10^3/uL (0.8-4.8) L 02/04/22 11:10 Davis # (Auto) 0.5 10^3/uL (0.2-0.9) 02/04/22 11:10 Eos # (Auto) 0.0 10^3/uL (0.0-0.8) 02/04/22 11:10 Baso # (Auto) 0.0 10^3/uL (0.0-0.1) 02/04/22 11:10 Nucleated RBC % (auto) 0 % 02/04/22 11:10 Nucleated RBCs # 0.0 /100WBC 02/04/22 11:10 Specimen Type Arterial 02/04/22 11:16 Sample Site Radial, left 02/04/22 11:16 ABG pH 7.41 (7.35-7.45) 02/04/22 11:16 ABG pCO2 34.0 mmHg (35-45) L 02/04/22 11:16 ABG pO2 62.8 mmHg (80.0-100.0) L 02/04/22 11:16 ABG HCO3 21.7 mmol/L (22-26) L 02/04/22 11:16 ABG O2 Saturation 93.4 02/04/22 11:16 ABG Base Excess -2.1 mmol/L (-2.0-2.0) L 02/04/22 11:16 Iban Test Pos 02/04/22 11:16 A-a O2 Gradient 5.8 mmHg (5-10) 02/04/22 11:16 Hematocrit 47.8 % (37-47) H 02/04/22 11:16 Hgb O2 Saturation 91.7 % (95-100) L 02/04/22 11:16 Carboxyhemoglobin 1.1 %THgb (0.4-20.1) 02/04/22 11:16 Methemoglobin 0.8 % (0.4-1.5) 02/04/22 11:16 Total Hemoglobin 15.6 g/dL (12-16) 02/04/22 11:16 Sodium 136.0 mmol/L (131-143) 02/04/22 11:16 Potassium 4.1 mmol/L (3.5-5.0) 02/04/22 11:16 Glucose 416.0 mg/dL (70-115) H 02/04/22 11:16 Ionized Calcium 1.3 mmol/L (1.1-1.4) 02/04/22 11:16 O2 Delivery Device Room air 02/04/22 11:16 FiO2 21.0 % 02/04/22 11:16 Automotive Sales Manager ID Cak 02/04/22 11:16 Sodium 133 mmol/L (136-145) L 02/04/22 11:10 Potassium 4.6 mmol/L (3.5-5.1) 02/04/22 11:10 Chloride 94 mmol/L (98-107) L 02/04/22 11:10 Carbon Dioxide 24 mmol/L (22-29) 02/04/22 11:10 Anion Gap 19.6 (5-19) H 02/04/22 11:10 BUN 16 mg/dL (8-23) 02/04/22 11:10 Creatinine 1.5 mg/dL (0.5-0.9) H 02/04/22 11:10 GFR Calculation Not Reportable 02/04/22 11:10 Glucose 385 mg/dL (65-115) H 02/04/22 11:10 Estimat Average Glucose 194 02/04/22 11:10 Hemoglobin A1c 8.4 % (4.0-6.0) H 02/04/22 11:10 Calculated Osmolality 293 mOsm/kg (285-295) 02/04/22 11:10 Calcium 10.5 mg/dL (8.5-10.5) 02/04/22 11:10 Magnesium 1.7 mg/dL (1.7-2.3) 02/04/22 11:10 Total Bilirubin 0.7 mg/dL (0.15-1.2) 02/04/22 11:10 AST 24 U/L (0-32) 02/04/22 11:10 ALT 23 U/L (0-33) 02/04/22 11:10 Alkaline Phosphatase 106 U/L (35-105) H 02/04/22 11:10 Troponin T Baseline 18 ng/L (0-10) H 02/04/22 11:10 Total Protein 8.0 g/dL (6.6-8.7) 02/04/22 11:10 Albumin 4.0 g/dL (3.5-5.2) 02/04/22 11:10 Globulin 4.0 g/dL (1.3-4.6) 02/04/22 11:10 Procalcitonin 0.32 ng/mL (0-0.5) 02/04/22 11:10 TSH 1.88 uIU/mL (0.27-4.20) 02/04/22 11:10 Urine Color Yellow (Yellow) 02/04/22 11:20 Urine Appearance Clear (CLEAR) 02/04/22 11:20 Urine pH 5 (5-7) 02/04/22 11:20 Ur Specific [place] 1.015 (1.005-1.030) 02/04/22 11:20 Urine Protein 2+ (Negative) H 02/04/22 11:20 Urine Glucose (UA) Norm (Normal) 02/04/22 11:20 Urine Ketones 1+ (Negative) H 02/04/22 11:20 Urine Blood 2+ (Negative) H 02/04/22 11:20 Urine Nitrate Negative (Negative) 02/04/22 11:20 Urine Bilirubin Neg (Negative) 02/04/22 11:20 Urine Urobilinogen 1 mg/dL (Negative) H 02/04/22 11:20 Ur Leukocyte Esterase 2+ (Negative) H 02/04/22 11:20 Urine RBC 0-4 /hpf (0-2) H 02/04/22 11:20 Urine WBC Too numerous to cnt /hpf (0-5) H 02/04/22 11:20 Ur Squamous Epith Cells 0-4 /hpf (0-5) H 02/04/22 11:20 Amorphous Sediment Not Reportable 02/04/22 11:20 Urine Bacteria 4+ /hpf (NONE) H 02/04/22 11:20 Discharge Plan Discharge Patient Disposition: Admitted As Inpatient Admit Provider: Saleem Richardson Clinical Impression: Sepsis, Altered mental status, UTI (urinary tract infection), DAVID (acute kidney injury), Diarrhea, Diabetes mellitus Condition: Stable Discharge Diet: Regular Discharge Activity: Resume usual activity and Increase activity as tolerated Coding Level of Care Code ED Hurricane Tracker for Mariano Alonso
[2022-02-04 11:16] LABS: Basophils % 0.3 %; Eosinophils % 0.1 %; Hematocrit 48.4 % (37.0-47.0); Hemoglobin 15.6 g/dL (11.5-15.3); Lymphocytes # 0.7 10^3/uL (0.8-4.8); Lymphocytes % 5.6 %; Mean Corpuscular HGB Conc 32.2 g/dL (30.0-36.0); Mean Corpuscular Hemoglobin 29.3 pg (28.0-34.0); Mean Corpuscular Volume 90.8 fl (81-99); Mean Platelet Volume 10.9 fL (7.4-10.4); Monocytes # 0.5 10^3/uL (0.2-0.9); Monocytes % 4.2 %; Neutrophils # 10.31 10^3/uL (1.8-7.7); Neutrophils % 89.5 %; Nucleated Red Blood Cells % 0 %; Platelet Count 225 10^3/cmm (130-400); Red Blood Count 5.33 10^6/uL (4.1-5.3); Red Cell Distribution Width 14.4 % (12.1-15.1); White Blood Count 11.5 10^3/uL (4.0-10.0)
[2022-02-04 11:28] LABS: ABG PH Result 7.41 (7.35-7.45); Alveolar-Arterial Oxygen Gradi 5.8 mmHg (5-10); Arterial Blood Gas Hematocrit 47.8 % (37-47); Base Excess ABG -2.1 mmol/L (-2.0-2.0); Blood Gas Allen Test Pos; Blood Gas Operator Identificat CAK; Blood Gas Sample Site Radial, left; Blood Gas Sample Type Arterial; Carboxyhemoglobin 1.1 %THgb (0.4-20.1); HCO3 ABG 21.7 mmol/L (22-26); HGB O2 Sat 91.7 % (95-100); Ionized Calcium Level - ABG 1.3 mmol/L (1.1-1.4); Methemoglobin 0.8 % (0.4-1.5); Oxygen Device ROOM AIR; Oxygen Saturation ABG 93.4; PO2 ABG 62.8 mmHg (80.0-100.0); Potassium Level - ABG 4.1 mmol/L (3.5-5.0); Total Hemoglobin 15.6 g/dL (12-16)
[2022-02-04 11:34] LABS: Alanine Aminotransferase 23 U/L (0-33); Alkaline Phosphatase 106 U/L (35-105); Anion Gap 19.6 (5-19); Aspartate Amino Transferase 24 U/L (0-32); Blood Urea Nitrogen 16 mg/dL (8-23); Calcium 10.5 mg/dL (8.5-10.5); Carbon Dioxide 24 mmol/L (22-29); Chloride 94 mmol/L (98-107); Glucose 385 mg/dL (65-115); Osmolality Calculated 293 mOsm/kg (285-295); Potassium 4.6 mmol/L (3.5-5.1); Sodium 133 mmol/L (136-145); Total Bilirubin 0.7 mg/dL (0.15-1.2)
[2022-02-04 11:36] LABS: Troponin(5th) Baseline 18 ng/L (0-10)
[2022-02-04 11:38] LABS: Blood Urine 2+ (Negative); Glucose Urine UA Norm (Normal); Ketones Urine 1+ (Negative); Nitrate Urine Negative (Negative); Specific Gravity, Urine 1.015 (1.005-1.030); Urine Appearance Clear (CLEAR); Urine Color Yellow (Yellow); pH Urine 5 (5-7)
[2022-02-04 11:39] LABS: Add Urine Microscopic? YES; Bacteria Urine 4+ /hpf; Bilirubin Urine Neg (Negative); Leukocyte Esterase Urine 2+ (Negative); Protein Urine 2+ (Negative); RBC Urine 0-4 /hpf (0-2); Squamous Epithelial Cell Urine 0-4 /hpf (0-5); Urobilinogen Urine 1 mg/dL (Negative); WBC Urine TOO NUMEROUS TO CNT /hpf (0-5)
[2022-02-04 11:40] LABS: Add Urine Culture? Yes
--- NOTE | 2022-02-04 11:49 | CT_ITS ---
WS: [id number] CT ABDOMEN PELVIS TECHNIQUE: Noncontrast CT of the abdomen and pelvis with coronal and sagittal reformatted images. CLINICAL INFORMATION: cystitis, DAVID COMPARISON: None. DLP: 822.[address] scans at [facility] use at least one of these dose optimization techniques: automated e xposure control; mA and/or kV adjustment per patient size (includes targeted exams where dose is matc hed to clinical indication); or iterative reconstruction. FINDINGS: Noncontrast liver is normal. Cholecystectomy. Small esophageal hiatal hernia. Fibrosis in the lung ba ses. Fatty atrophy of the pancreas. Splenic artery calcification. Small splenule. Fatty atrophy of the mckenzie creas. Adrenal glands are normal. No hydronephrosis in either kidney. No obstructing renal or uretera l calculi Small esophageal hiatal hernia. Air-fluid levels in the stomach. Sigmoid constipation. Sigmoid divert iculosis. No evidence of acute diverticulitis. Mild diffuse bladder wall thickening with air in the n ondependent bladder can be seen with cystitis. Recommend correlation with recent instrumentation. Tin y amount of free fluid in the pelvis. Vascular calcification. Disc space narrowing worse L5-S1 with osteophytic ridging.Densely calcified abdominal aorta with the distal narrowing. Mid aorta measures approximately 2.3 x 2.5 cm AP by transverse. CT/CT kidney stone [id number] IMPRESSION: 1. No obstructing renal or ureteral calculi. 2. Dense sigmoid constipation. Sigmoid diverticulosis. No evidence of acute di verticulitis. 3. Diffuse bladder wall thickening with air in the nondependent bladder can be seen with cystitis/UTI. Recommend correlation for bladder instrumentation. 4. Prior cholecystectomy. 5. Small esophageal hiatal hernia. 6. Densely calcified abdominal aorta with the distal narrowing. Mid aorta gilmar ures approximately 2.3 x 2.5 cm AP by transverse.
--- NOTE | 2022-02-04 13:13 | PM.HP ---
Providers/Chief Complaint Primary Care Provider: Law Manzanares MD Chief Complaint: decreased loc History of Present Illness Anat Mark is a 76 year old female who is a resident at [facility], dementia unit, past medical history of type 2 diabetes mellitus, depression, hypertension, recent COVID-19 in December 2021 was brought in by the EMS today. As per the report from the EMS he was reported to have hypoxia down to low 80s in the [facility]. On arrival of EMS she was found to be having back cold peripheries. After warming up her saturations at the [facility] via EMS was in high 90s. She was brought into the ER for further evaluation. On arrival in the ER patient saturation was still in 90s and improving as the core temperature was warmed up. As per the ER physician patient was not responding on arrival but mentation slightly improved as peripheries became warm. On examination patient lying comfortably in bed with eyes closed, does not open eyes on verbal communication. Able to tell me her name, speaks very softly, knows she is not at her home currently but not able to answer any questions or follow any purposeful commands. Blood work in the ER showed a white count of 11.5, hemoglobin of 15.6, ABG showing a PCO2 34, PO2 of 62 on room air, chemistry showing a sodium of 133, creatinine of 1.5 with a baseline creatinine of 0.7, UA showing numerous WBCs, 2+ leuk esterase but nitrate negative. Patient did have CT chest abdomen pelvis along with chest x-ray as below. Review of Systems General: Reports: ROS unobtainable due to mental status Medications/Allergies Home Medications Medication Instructions Recorded Confirmed Last Taken Type amlodipine 10 mg tablet 10 mg PO DAILY #30 tabs 09/23/20 02/04/22 02/04/22 Rx escitalopram oxalate 10 mg tablet 20 mg PO DAILY 12/02/20 02/04/22 02/04/22 History (Lexapro) tramadol 50 mg tablet 50 mg PO BID PRN Pain 12/02/20 02/04/22 02/04/22 History gabapentin 300 mg capsule 300 mg PO TID 04/27/21 02/04/22 02/04/22 History (Neurontin) pantoprazole 40 mg tablet,delayed 40 mg PO DAILY 04/27/21 02/04/22 02/04/22 History release (Protonix) risperidone 0.25 mg tablet 0.25 mg PO BID 04/27/21 02/04/22 02/04/22 History insulin aspart U-100 100 unit/mL See Rx Instructions .Route 08/25/21 02/04/22 02/04/22 Rx (3 mL) subcutaneous pen (Novolog .COMPLEX #15 mL Flexpen U-100 Insulin aspart) lisinopril 40 mg tablet 20 mg PO DAILY #0 tabs 08/25/21 02/04/22 02/04/22 Rx sitagliptin 50 mg tablet 50 mg PO DAILY #90 tabs 09/29/21 02/04/22 02/04/22 Rx acetaminophen 325 mg tablet 325 mg PO QID PRN Pain 02/04/22 02/04/22 Unknown History (Tylenol) insulin detemir U-100 100 unit/mL 15 unit SUBCUT BID 02/04/22 02/04/22 02/04/22 History subcutaneous solution (Levemir U-100 Insulin) Allergies Allergy/AdvReac Type Severity Reaction Status Date / Time No Known Allergies Allergy Verified 02/04/22 12:55 PFSH Acute PFSH: Medical History (Updated 02/04/22 @ 13:26 by Saleem Richardson MD) Arthritis Depression Diabetes Diabetes type 2, uncontrolled Dysthymia HTN (hypertension) with goal to be determined Mixed hyperlipidemia Other chronic pain Other fatigue Radiculopathy, lumbar region Vitamin D deficiency, unspecified Surgical History History of cholecystectomy Family History Other Cancer Hypertension Myocardial infarct Social History Smoking and tobacco status: never smoked Alcohol intake: never Vitals/I&O/Wt Last Vital Signs Temp 98.4 F 02/04/22 10:44 Pulse 86 02/04/22 10:44 Resp 14 02/04/22 10:57 BP 128/71 02/04/22 11:33 Pulse Ox 95 02/04/22 10:57 O2 Del Method 02/04/22 10:44 Weight last 48 hrs Weight 74.843 kg Physical Exam Narrative: General: No acute distress, AO x 1, soft-spoken, not following purposeful commands, chronically ill-appearing HEENT: PERRLA, pupils bilaterally equal and reactive Chest: Normal vesicular breath sounds, no added sounds, equal good air entry bilaterally CVS: S1-S2 regular, no murmurs, no tachycardia, no gallops, no rubs Abdomen: Soft, nontender, no organomegaly, bowel sounds present Neuro: No focal deficits, no facial deformity, laying with arms flexed but can passively extend. Moving all 4 limbs with a very Data : 02/04/22 11:10 02/04/22 11:10 A&P Assessment and plan (1) Sepsis: Ruled out on admission secondary to leukocytosis, hypothermia, endorgan damage with DAVID and altered mental status. Status: Acute (2) Altered mental status: Most likely secondary to toxic metabolic encephalopathy from UTI in setting of baseline dementia. Frequent reorientation. Continue to monitor. Status: Acute (3) UTI (urinary tract infection): UA concerning for UTI. CT abdomen pelvis negative for any obstructive uropathy. Follow-up urine culture, blood culture. Most recent urine culture from July 2021 shows E. coli sensitive to levofloxacin and ceftriaxone. For now we will start on IV ceftriaxone and will continue to monitor. Check MRSA swab, procalcitonin Status: Acute (4) DAVID (acute kidney injury): Most likely secondary to dehydration from poor oral intake, diarrhea along with sepsis. For now start on IV fluids with normal saline at 50 cc/h. Follow-up urine analysis including urine lites, urine creatinine. Monitor BMP daily. Medical reconciliation done for nephrotoxic drugs. Status: Acute (5) Diarrhea: Rule out C. difficile. C. difficile is negative can start on Imodium as needed. Fluid as above. Status: Acute (6) HTN (hypertension) with goal to be determined: Goal blood pressure less than 140/90 urology. Continue with amlodipine. Hold off on lisinopril given DAVID. Status: Acute (7) Diabetes: Insulin sliding scale. For now hold off on Levemir 15 units twice daily. Will reintroduce or restart as per blood sugars within next 24 hours. Status: Acute Qualifiers: Diabetes mellitus type: type 2 (8) Depression: Continue home dose of Lexapro, gabapentin, risperidone. Status: Acute Plan Analgesia: Tylenol as needed Glycemic control: Insulin sliding scale at moderate dose protocol. Hold off on Lantus 15 units twice daily. Check A1c. Nutrition: Dysphagia level 2 diet, carb consistent. Will advance as per mentation. Swallow evaluation. CODE STATUS: Full code as per paperwork from [facility] PUD prophylaxis: Protonix DVT prophylaxis: Heparin 5000 every 12 hourly. Discharge planning: Back to [facility] once medically stable Admit to [facility] floor. This documentation was created by [employer] rug hooker software. Every effort was made to ensure accuracy of rug hooker. Any obvious errors or omissions should be clarified with the author of the document. Attestations Medical Necessity Statement*: Admission for more than 2 midnights for management of sepsis, altered mental status secondary to toxic metabolic encephalopathy in setting of UTI, acute kidney injury Time Spent in Patient Care: Greater than 35 minutes Coding Level of Care Code Acute Emery Wheel Worker for [facility] Fwd Diagnoses Sepsis A41.9 Altered mental status R41.82 UTI (urinary tract infection) N39.0 DAVID (acute kidney injury) N17.9 Diarrhea R19.7 HTN (hypertension) with goal to be determined I10 Diabetes E11.9 Diabetes mellitus type: type 2 Depression F32.A
--- NOTE | 2022-02-04 13:35 | PC.NURSE ---
Pt is more alert now, she is able to follow simple commands, states she feels better
[2022-02-04 13:46] LABS: Troponin 5 2HR 17.13 ng/L (0-10)
[2022-02-04 13:49] LABS: Troponin 5 2HR Delta -0.87 ABS# (0-10)
[2022-02-04] MEDS: cefTRIAXone 1,000 MG in sodium chloride 0.9% (plus) 50 ML 100 MG IV (14:12)
[2022-02-04] MEDS: sodium chloride 0.9% 1,000 ML 999 ML IV (14:13)
[2022-02-04 14:36] LABS: Procalcitonin 0.32 ng/mL (0-0.5); Thyroid Stimulating Hormone 1.88 uIU/mL (0.27-4.20)
[2022-02-04 14:47] LABS: Magnesium 1.7 mg/dL (1.7-2.3)
[2022-02-04] MEDS: sodium chloride 0.9% 1,000 ML 50 ML IV (15:30)
[2022-02-04 15:57] LABS: Estmated Average Glucose 194; Hemoglobin A1C 8.4 % (4.0-6.0)
--- NOTE | 2022-02-04 16:03 | ECG_ITS ---
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 Measurements Intervals [place] Rate: 95 P: 54 UT: 132 QRS: 98 QRSD: 101 T: 10 QT: 409 QTc: 515 Interpretive Statements SINUS RHYTHM LEFT ATRIAL ENLARGEMENT [-0.15mV P-WAVE IN V1/V2] BORDERLINE RIGHT AXIS DEVIATION [QRS AXIS > 90] MODERATE T-WAVE ABNORMALITY, CONSIDER ANTEROLATERAL ISCHEMIA [-0.1+ mV T-WAVE IN V3-V6] Compared to ECG 02/04/2022 10:50:20 Possible ischemia now present T-wave abnormality still present Electronically Signed On 02-05-2022 14:41:49 CDT by Juanito Bowling M.D. [id number]
[2022-02-04 17:57] LABS: Troponin 5 6HR 17.94 ng/L (0-10)
[2022-02-04] MEDS: risperiDONE 0.25 mg Tablet PO (18:05)
[2022-02-04] MEDS: gabapentin 300 mg Capsule PO ×2 (18:05→22:36)
[2022-02-04 18:06] LABS: Troponin 5 6HR Delta -0.06 ng/L (0-12)
[2022-02-04] MEDS: heparin 5,000 unit/mL INJ 1 mL 5000 UNIT SUBCUT (18:06)
[2022-02-04] MEDS: insulin lispro 100 unit/1 mL 10 UNIT SUBCUT (20:51)
[2022-02-04 20:58] LABS: Glucose Point of Care 211 mg/dL (70-110)
[2022-02-04] MEDS: alum-mag-hydroxide-sime 30 mL UDC 15 ML PO (22:36)
[2022-02-05] VITALS (7 sets, daily range): BP systolic 122–160; BP diastolic 70–85; PULSE 70–89; RESP 14–17; TEMP 36.6–38; O2SAT 90–94
[2022-02-05] MEDS: heparin 5,000 unit/mL INJ 1 mL 5000 UNIT SUBCUT ×2 (02:36→16:25)
[2022-02-05 05:32] LABS: Basophils # 0.1 10^3/uL (0.0-0.1); Basophils % 0.6 %; Eosinophils # 0.1 10^3/uL (0.0-0.8); Eosinophils % 1.5 %; Hematocrit 44.3 % (37.0-47.0); Hemoglobin 14.1 g/dL (11.5-15.3); Lymphocytes # 1.9 10^3/uL (0.8-4.8); Lymphocytes % 20.2 %; Mean Corpuscular HGB Conc 31.8 g/dL (30.0-36.0); Mean Corpuscular Hemoglobin 29.4 pg (28.0-34.0); Mean Corpuscular Volume 92.3 fl (81-99); Mean Platelet Volume 11.7 fL (7.4-10.4); Monocytes # 0.8 10^3/uL (0.2-0.9); Monocytes % 8.6 %; Neutrophils # 6.51 10^3/uL (1.8-7.7); Neutrophils % 68.7 %; Nucleated Red Blood Cells % 0 %; Platelet Count 226 10^3/cmm (130-400); Red Cell Distribution Width 14.6 % (12.1-15.1); White Blood Count 9.5 10^3/uL (4.0-10.0)
[2022-02-05 05:57] LABS: Alanine Aminotransferase 20 U/L (0-33); Albumin Level 3.6 g/dL (3.5-5.2); Alkaline Phosphatase 96 U/L (35-105); Anion Gap 18.6 (5-19); Aspartate Amino Transferase 38 U/L (0-32); Blood Urea Nitrogen 17 mg/dL (8-23); Calcium 9.9 mg/dL (8.5-10.5); Carbon Dioxide 22 mmol/L (22-29); Chloride 100 mmol/L (98-107); Cholesterol 282 mg/dL (0-200); Globulin 3.9 g/dL (1.3-4.6); Glucose 171 mg/dL (65-115); HDL Cholesterol 20 mg/dL (60-100); LDL Cholesterol Calculated 198 mg/dL (50-129); Osmolality Calculated 290 mOsm/kg (285-295); Phosphorus 2.8 mg/dL (2.5-4.5); Potassium 3.6 mmol/L (3.5-5.1); Sodium 137 mmol/L (136-145); Total Bilirubin 0.6 mg/dL (0.15-1.2); Total Protein 7.5 g/dL (6.6-8.7); Triglycerides 319 mg/dL (0-150)
[2022-02-05 06:10] LABS: Glucose Point of Care 154 mg/dL (70-110)
[2022-02-05] MEDS: insulin lispro 100 unit/1 mL SUBCUT ×3 (10:51→21:53)
[2022-02-05] MEDS: risperiDONE 0.25 mg Tablet PO ×2 (10:53→18:54)
[2022-02-05] MEDS: pantoprazole DR 40 mg Tablet PO (10:53)
[2022-02-05] MEDS: amlodipine 10 mg Tablet PO (10:53)
[2022-02-05] MEDS: escitalopram 10 mg Tablet 20 MG PO (10:53)
[2022-02-05] MEDS: gabapentin 300 mg Capsule PO ×3 (10:54→21:53)
[2022-02-05] MEDS: sodium chloride 0.9% 1,000 ML 50 ML IV (10:55)
[2022-02-05] MEDS: mineral oil ENEMA 133 mL PR (10:59)
[2022-02-05] MEDS: magnesium hydroxide 30 mL UDC PO (10:59)
--- NOTE | 2022-02-05 11:41 | PC.CHAP ---
Pastoral Care Encounter/Spiritual Assessment Type of Contact [] Declined supervisor pipelines visit [] Patient/Family/Request visit [] Outpatient visit [] Follow-up visit [] Physician referral [] Code/Alert [x] Routine visit [] Staff referral [] Actively dying [] Patient sleeping [] Family support [] [] Out of room [] Palliative care [] [x] Receiving care in room [] Pre-surgical visit [] Trauma [] Long length of stay [] ICU visit [] Other: Relational/Emotional Strength [] Patient feels connected with others/family/visitors/staff [] Distress [] Loneliness/isolation [] Abandonment Spirituality of Patient [] Person of Kanchan [] Attends Sabianist of their [place] [] Believes in Prayer [] Reads Bible or Adventist materials [] There are Spiritual issues to be addressed Transfer And Pumphouse Operator Chief Interventions [] Prayer [] Active listening [] Non-anxious presence [] Spiritual/emotional support [] Crisis/trauma care [] Spiritual counseling [] Bereavement support [] Provided bereavement packet [] Provided Bible/devotional materials [] Provided toy/stuffed animal, coloring book to patient or family member [] Provided Communion [] Anointing/[place] [] Salvation [] Completed spiritual assessment [] Other: Impact on Illness or Injury [] Angry [] Fearful [] Anxious [] Often cries [] Exhaustion [] Unable to work [] Unable to attend anglican [] Unable to walk/stand [] Unable to read [] Unable to drive [] Unable to eat/drink [] Unable to sleep [] Unable to be with family [] Patient intubated [] Other: Summary Time spent with patient
[2022-02-05 12:08] LABS: Glucose Point of Care 203 mg/dL (70-110)
[2022-02-05] MEDS: cefTRIAXone 1,000 MG in sodium chloride 0.9% (plus) 50 ML 100 MG IV (13:09)
--- NOTE | 2022-02-05 15:28 | PM.PN ---
Subjective Subjective: No acute events overnight. Patient has remained hemodynamically stable and afebrile. Today morning on examination patient sleeping in bed, wakes up to physical stimulus. Still not following commands. Able to answer me her name. As per the nurse patient was doing some during morning. Took medications appropriately without concern for cough. Vitals/I&O/Wt Last Vital Signs Temp 97.8 F 02/05/22 15:17 Pulse 83 02/05/22 15:17 Resp 15 02/05/22 15:17 BP 152/73 02/05/22 15:17 Pulse Ox 94 02/05/22 15:17 O2 Del Method 02/05/22 15:17 02/05/22 02/05/22 02/05/22 06:59 14:59 22:59 Intake Total 240 / 1350 970.833 / 970.833 Balance 240 / 1350 970.833 / 970.833 Weight last 48 hrs Weight 68.765 kg Weight 67.404 kg Weight 74.843 kg Weight 74.843 kg Physical Exam Narrative: General: No acute distress, AO x 1, soft-spoken, not following purposeful commands, chronically ill-appearing HEENT: PERRLA, pupils bilaterally equal and reactive Chest: Normal vesicular breath sounds, no added sounds, equal good air entry bilaterally CVS: S1-S2 regular, no murmurs, no tachycardia, no gallops, no rubs Abdomen: Soft, nontender, no organomegaly, bowel sounds present Neuro: No focal deficits, no facial deformity, laying with arms flexed but can passively extend. Moving all 4 limbs with a very Data : 02/05/22 04:17 02/05/22 04:17 Micro: Microbiology 02/04/22 11:20 Urine Culture - Preliminary Urine,Clean Catch Gram Negative Rods A&P Assessment and plan (1) Sepsis: Ruled out on admission secondary to leukocytosis, hypothermia, endorgan damage with DAVID and altered mental status. Status: Acute (2) Altered mental status: Most likely secondary to toxic metabolic encephalopathy from UTI in setting of baseline dementia. Frequent reorientation. Continue to monitor. Status: Acute (3) UTI (urinary tract infection): UA concerning for UTI. CT abdomen pelvis negative for any obstructive uropathy. Follow-up urine culture, blood culture. Most recent urine culture from July 2021 shows E. coli sensitive to levofloxacin and ceftriaxone. For now we will start on IV ceftriaxone and will continue to monitor. Check MRSA swab, procalcitonin Status: Acute (4) DAVID (acute kidney injury): Most likely secondary to dehydration from poor oral intake, diarrhea along with sepsis. For now start on IV fluids with normal saline at 50 cc/h. Follow-up urine analysis including urine lites, urine creatinine. Monitor BMP daily. Medical reconciliation done for nephrotoxic drugs. Status: Acute (5) Diarrhea: Rule out C. difficile. C. difficile is negative can start on Imodium as needed. Fluid as above. Status: Acute (6) HTN (hypertension) with goal to be determined: Goal blood pressure less than 140/90 urology. Continue with amlodipine. Hold off on lisinopril given DAVID. Status: Acute (7) Diabetes: Insulin sliding scale. For now hold off on Levemir 15 units twice daily. Will reintroduce or restart as per blood sugars within next 24 hours. Status: Acute Qualifiers: Diabetes mellitus type: type 2 (8) Depression: Continue home dose of Lexapro, gabapentin, risperidone. Status: Acute Plan Analgesia: Tylenol as needed Glycemic control: Insulin sliding scale at moderate dose protocol. Hold off on Lantus 15 units twice daily. Check A1c. Nutrition: Dysphagia level 4 diet, carb consistent. Will advance as per mentation. Swallow evaluation. CODE STATUS: Full code as per paperwork from custodial PUD prophylaxis: Protonix DVT prophylaxis: Heparin 5000 every 12 hourly. Discharge planning: Back to custodial once medically stable Admit to [facility] floor. This documentation was created by [employer] chief of staff doctor software. Every effort was made to ensure accuracy of chief of staff doctor. Any obvious errors or omissions should be clarified with the author of the document. Plan for the day: Follow-up urine culture. Continue with ceftriaxone. Will change antibiotics as per culture sensitivities. Hold off on Lantus for now. Continue insulin sliding scale. Patient has poor oral intake for now. Will restart Lantus as per insulin requirement within next 24 hours. Milk of magnesia 1 time, Fleet enema. Start on daily senna Colace. Normal saline at 75 cc/h. Monitor BMP daily for now. Goal blood pressure less than 140/90 mmHg. Will uptitrate medications accordingly. Continue to hold off on lisinopril. Hold off on Lexapro for now given poor mentation. Attestations Medical Necessity Statement*: Requires further hospitalization for management of altered mental status secondary to toxic metabolic encephalopathy in setting of UTI Time Spent in Patient Care: Greater than 35 minutes Coding Level of Care Code Acute Manager Flight Operations for [facility] Fwd Diagnoses Sepsis A41.9 Altered mental status R41.82 UTI (urinary tract infection) N39.0 DAVID (acute kidney injury) N17.9 Diarrhea R19.7 HTN (hypertension) with goal to be determined I10 Diabetes E11.9 Diabetes mellitus type: type 2 Depression F32.A
[2022-02-05 17:04] LABS: Glucose Point of Care 108 mg/dL (70-110)
[2022-02-05] MEDS: sennosides-docusate Tablet 1 TAB PO (18:54)
[2022-02-05 21:36] LABS: Glucose Point of Care 159 mg/dL (70-110)
[2022-02-05] MEDS: atorvastatin 40 mg Tablet PO (21:53)
[2022-02-06] VITALS (7 sets, daily range): BP systolic 145–187; BP diastolic 73–81; PULSE 68–76; RESP 13–20; TEMP 36.4–37.8; O2SAT 92–96
[2022-02-06] MEDS: heparin 5,000 unit/mL INJ 1 mL 5000 UNIT SUBCUT ×2 (03:15→15:52)
[2022-02-06 05:19] LABS: Basophils % 0.6 %; Eosinophils # 0.2 10^3/uL (0.0-0.8); Eosinophils % 2.2 %; Hematocrit 42.4 % (37.0-47.0); Hemoglobin 13.3 g/dL (11.5-15.3); Lymphocytes # 1.9 10^3/uL (0.8-4.8); Lymphocytes % 27.5 %; Mean Corpuscular HGB Conc 31.4 g/dL (30.0-36.0); Mean Corpuscular Hemoglobin 28.8 pg (28.0-34.0); Mean Corpuscular Volume 91.8 fl (81-99); Mean Platelet Volume 11.1 fL (7.4-10.4); Monocytes # 0.7 10^3/uL (0.2-0.9); Monocytes % 9.4 %; Neutrophils # 4.15 10^3/uL (1.8-7.7); Nucleated Red Blood Cells % 0 %; Platelet Count 202 10^3/cmm (130-400); Red Blood Count 4.62 10^6/uL (4.1-5.3); Red Cell Distribution Width 14.6 % (12.1-15.1); White Blood Count 6.9 10^3/uL (4.0-10.0)
[2022-02-06 05:35] LABS: Alanine Aminotransferase 25 U/L (0-33); Albumin Level 3.6 g/dL (3.5-5.2); Alkaline Phosphatase 96 U/L (35-105); Aspartate Amino Transferase 47 U/L (0-32); Blood Urea Nitrogen 16 mg/dL (8-23); Calcium 9.6 mg/dL (8.5-10.5); Carbon Dioxide 26 mmol/L (22-29); Chloride 103 mmol/L (98-107); Globulin 3.8 g/dL (1.3-4.6); Glucose 165 mg/dL (65-115); Osmolality Calculated 297 mOsm/kg (285-295); Sodium 141 mmol/L (136-145); Total Bilirubin 0.5 mg/dL (0.15-1.2); Total Protein 7.4 g/dL (6.6-8.7)
[2022-02-06 06:02] LABS: Anion Gap 15.7 (5-19); Creatinine Clr Calc Pharmacy 44.1553; Potassium 3.7 mmol/L (3.5-5.1)
[2022-02-06 06:36] LABS: Glucose Point of Care 166 mg/dL (70-110)
[2022-02-06] MEDS: insulin lispro 100 unit/1 mL SUBCUT ×2 (08:47→12:55)
[2022-02-06 11:10] LABS: Glucose Point of Care 150 mg/dL (70-110)
[2022-02-06] MEDS: cefTRIAXone 1,000 MG in sodium chloride 0.9% (plus) 50 ML 100 MG IV (12:53)
[2022-02-06] MEDS: sodium chloride 0.9% 1,000 ML 75 ML IV (12:54)
--- NOTE | 2022-02-06 16:49 | PM.PN ---
Subjective Subjective: No events overnight. On examination patient lying comfortably in bed. As per the nurse patient refused her morning medications and spit out most of the medications. Otherwise has remained calm. Patient is laying with her eyes closed on examination refusing to open her eyes. But able to tell me her name. Refuses to answer any questions. Vitals/I&O/Wt Last Vital Signs Temp 98.4 F 02/06/22 15:56 Pulse 74 02/06/22 15:56 Resp 20 H 02/06/22 15:56 BP 152/78 02/06/22 15:56 Pulse Ox 92 02/06/22 15:56 O2 Del Method 02/06/22 08:41 02/06/22 02/06/22 02/06/22 06:59 14:59 22:59 Intake Total 420 / 1560.833 630 / 630 Output Total 300 / 300 Balance 120 / 1260.833 630 / 630 Weight last 48 hrs Weight 68.765 kg Weight 67.404 kg Physical Exam Narrative: General: No acute distress, AO x 1, soft-spoken, not following purposeful commands, chronically ill-appearing HEENT: PERRLA, pupils bilaterally equal and reactive Chest: Normal vesicular breath sounds, no added sounds, equal good air entry bilaterally CVS: S1-S2 regular, no murmurs, no tachycardia, no gallops, no rubs Abdomen: Soft, nontender, no organomegaly, bowel sounds present Neuro: No focal deficits, no facial deformity, laying with arms flexed but can passively extend. Moving all 4 limbs with a very Urinary Catheter Management: Barr: Cath Placed During This Visit: yes Reason for Continuing Indwelling Catheter: Acute Urinary Retention or Obstruction Urinary Catheter Date of Insertion: 02/06/22 Urinary Catheter Time of Insertion: 04:45 Data : 02/06/22 04:55 02/06/22 04:55 Micro: Microbiology 02/04/22 11:20 Urine Culture - Final Urine,Clean Catch Klebsiella pneumoniae 02/05/22 14:20 Stool Lactoferrin - Final Stool C.difficile Toxin B Gene (PCR) - Final Occult Blood (FIT) - Final A&P Assessment and plan (1) Sepsis: Ruled out on admission secondary to leukocytosis, hypothermia, endorgan damage with DAVID and altered mental status. Status: Acute (2) Altered mental status: Most likely secondary to toxic metabolic encephalopathy from UTI in setting of baseline dementia. Frequent reorientation. Continue to monitor. Status: Acute (3) UTI (urinary tract infection): UA concerning for UTI. CT abdomen pelvis negative for any obstructive uropathy. Urine culture growing Klebsiella pneumonia. Sensitivities appreciated. Blood cultures so far negative. Continue with ceftriaxone for now. Will finish a 5-day course. Last dose on 02/08. Check MRSA swab, procalcitonin Status: Acute (4) DAVID (acute kidney injury): Most likely secondary to dehydration from poor oral intake, diarrhea along with sepsis. Continue with IV fluids with normal saline at 50 cc/h. Monitor BMP daily. Medical reconciliation done for nephrotoxic drugs. Status: Acute (5) Diarrhea: Rule out C. difficile. C. difficile is negative can start on Imodium as needed. Fluid as above. Status: Acute (6) HTN (hypertension) with goal to be determined: Goal blood pressure less than 140/90 mmHg. Continue with amlodipine. Hold off on lisinopril given DAVID. Hydralazine as needed for systolic blood pressure more than 160 mmHg. Status: Acute (7) Diabetes: Insulin sliding scale. For now hold off on Levemir 15 units twice daily. Will reintroduce or restart as per blood sugars within next 24 hours. Status: Acute Qualifiers: Diabetes mellitus type: type 2 (8) Depression: Continue home dose of Lexapro, gabapentin, risperidone. Status: Acute Plan Analgesia: Tylenol as needed Glycemic control: Insulin sliding scale at moderate dose protocol. Hold off on Lantus 15 units twice daily. Check A1c. Nutrition: Dysphagia level 4 diet, carb consistent. Will advance as per mentation. Swallow evaluation. CODE STATUS: Full code as per paperwork from senior living PUD prophylaxis: Protonix DVT prophylaxis: Heparin 5000 every 12 hourly. Discharge planning: Back to senior living once medically stable Admit to [facility] floor. This documentation was created by [employer] student services representative software. Every effort was made to ensure accuracy of student services representative. Any obvious errors or omissions should be clarified with the author of the document. Attestations Medical Necessity Statement*: Requires further hospitalization for management of acute UTI leading to altered mental status in setting of worsening baseline dementia secondary to UTI Coding Level of Care Code Acute Breast Trimmer for [facility] Fwd Diagnoses Sepsis A41.9 Altered mental status R41.82 UTI (urinary tract infection) N39.0 DAVID (acute kidney injury) N17.9 Diarrhea R19.7 HTN (hypertension) with goal to be determined I10 Diabetes E11.9 Diabetes mellitus type: type 2 Depression F32.A
[2022-02-06 17:17] LABS: Glucose Point of Care 134 mg/dL (70-110)
[2022-02-06 20:47] LABS: Glucose Point of Care 112 mg/dL (70-110)
[2022-02-06] MEDS: gabapentin 300 mg Capsule PO (20:51)
[2022-02-06] MEDS: atorvastatin 40 mg Tablet PO (20:51)
[2022-02-07] VITALS (8 sets, daily range): BP systolic 99–176; BP diastolic 54–104; PULSE 62–91; RESP 15–20; TEMP 36.8–38.1; O2SAT 92–96
[2022-02-07] MEDS: heparin 5,000 unit/mL INJ 1 mL 5000 UNIT SUBCUT ×2 (03:00→16:46)
[2022-02-07] MEDS: sodium chloride 0.9% 1,000 ML 75 ML IV (05:24)
[2022-02-07 05:25] LABS: Basophils # 0.1 10^3/uL (0.0-0.1); Basophils % 0.8 %; Eosinophils # 0.2 10^3/uL (0.0-0.8); Eosinophils % 3.5 %; Lymphocytes # 2.2 10^3/uL (0.8-4.8); Lymphocytes % 35.4 %; Mean Corpuscular HGB Conc 31.7 g/dL (30.0-36.0); Mean Corpuscular Hemoglobin 29.3 pg (28.0-34.0); Mean Corpuscular Volume 92.3 fl (81-99); Mean Platelet Volume 11.6 fL (7.4-10.4); Monocytes # 0.5 10^3/uL (0.2-0.9); Monocytes % 7.8 %; Neutrophils # 3.31 10^3/uL (1.8-7.7); Neutrophils % 52.3 %; Nucleated Red Blood Cells % 0 %; Platelet Count 195 10^3/cmm (130-400); Red Blood Count 4.44 10^6/uL (4.1-5.3); Red Cell Distribution Width 14.4 % (12.1-15.1); White Blood Count 6.3 10^3/uL (4.0-10.0)
[2022-02-07 05:48] LABS: Alanine Aminotransferase 26 U/L (0-33); Albumin Level 3.1 g/dL (3.5-5.2); Alkaline Phosphatase 93 U/L (35-105); Anion Gap 14.2 (5-19); Aspartate Amino Transferase 52 U/L (0-32); Blood Urea Nitrogen 11 mg/dL (8-23); Calcium 9.2 mg/dL (8.5-10.5); Carbon Dioxide 24 mmol/L (22-29); Chloride 104 mmol/L (98-107); Globulin 3.9 g/dL (1.3-4.6); Glucose 137 mg/dL (65-115); Osmolality Calculated 290 mOsm/kg (285-295); Potassium 3.2 mmol/L (3.5-5.1); Sodium 139 mmol/L (136-145); Total Bilirubin 0.5 mg/dL (0.15-1.2)
[2022-02-07 06:38] LABS: Glucose Point of Care 185 mg/dL (70-110)
[2022-02-07] MEDS: insulin lispro 100 unit/1 mL SUBCUT ×3 (08:53→18:02)
[2022-02-07] MEDS: gabapentin 300 mg Capsule PO ×3 (08:54→21:26)
[2022-02-07] MEDS: sennosides-docusate Tablet 1 TAB PO ×2 (08:54→16:44)
[2022-02-07] MEDS: amlodipine 10 mg Tablet PO (08:54)
[2022-02-07] MEDS: pantoprazole DR 40 mg Tablet PO (08:54)
[2022-02-07] MEDS: risperiDONE 0.25 mg Tablet PO (08:56)
[2022-02-07] MEDS: hyDRALAzine 25 mg Tablet PO ×3 (10:58→21:27)
[2022-02-07 11:05] LABS: Glucose Point of Care 153 mg/dL (70-110)
--- NOTE | 2022-02-07 13:11 | P.PN_ITS ---
Subjective Subjective: No acute events overnight. Continues to remain on room air and afebrile. Continues to refuse taking oral medications. Has remained afebrile. On examination laying comfortably in bed with eyes closed. Opens eyes to physical stimulus. Refusing to answer questions or follow simple commands. Vitals/I&O/Wt Last Vital Signs Temp 98.2 F 02/07/22 12:00 Pulse 70 02/07/22 12:00 Resp 16 02/07/22 12:00 BP 171/104 02/07/22 12:00 Pulse Ox 94 02/07/22 12:00 O2 Del Method 02/07/22 12:00 02/06/22 02/07/22 02/07/22 22:59 06:59 14:59 Intake Total 360 / 990 1240 / 2230 Output Total 1150 / 1150 400 / 1550 Balance -790 / -160 840 / 680 Weight last 48 hrs Weight 63.758 kg Physical Exam Narrative: General: No acute distress, AO x 1, soft-spoken, not following purposeful commands, chronically ill-appearing HEENT: PERRLA, pupils bilaterally equal and reactive Chest: Normal vesicular breath sounds, no added sounds, equal good air entry bilaterally CVS: S1-S2 regular, no murmurs, no tachycardia, no gallops, no rubs Abdomen: Soft, nontender, no organomegaly, bowel sounds present Neuro: No focal deficits, no facial deformity, laying with arms flexed but can passively extend. Moving all 4 limbs with a very Urinary Catheter Management: Barr: Cath Placed During This Visit: yes Reason for Continuing Indwelling Catheter: Acute Urinary Retention or Obstruction Urinary Catheter Date of Insertion: 02/06/22 Urinary Catheter Time of Insertion: 04:45 Data : 02/07/22 04:17 02/07/22 04:17 Micro: Microbiology 02/05/22 14:20 Stool Lactoferrin - Final Stool Enteric Pathogens (PCR) - Final C.difficile Toxin B Gene (PCR) - Final Occult Blood (FIT) - Final 02/04/22 11:20 Urine Culture - Final Urine,Clean Catch Klebsiella pneumoniae A&P Assessment and plan (1) Sepsis: Ruled out on admission secondary to leukocytosis, hypothermia, endorgan damage with DAVID and altered mental status. Status: Acute (2) Altered mental status: Most likely secondary to toxic metabolic encephalopathy from UTI in setting of baseline dementia. Frequent reorientation. Continue to monitor. Status: Acute (3) UTI (urinary tract infection): UA concerning for UTI. CT abdomen pelvis negative for any obstructive uropathy. Urine culture growing Klebsiella pneumonia. Sensitivities appreciated. Blood cultures so far negative. Continue with ceftriaxone for now. Will finish a 5-day course. Last dose on 02/08. Check MRSA swab, procalcitonin Status: Acute (4) DAVID (acute kidney injury): Most likely secondary to dehydration from poor oral intake, diarrhea along with sepsis. Continue with IV fluids with normal saline at 50 cc/h. Monitor BMP daily. Medical reconciliation done for nephrotoxic drugs. Status: Acute (5) Diarrhea: Rule out C. difficile. C. difficile is negative can start on Imodium as needed. Fluid as above. Status: Acute (6) HTN (hypertension) with goal to be determined: Goal blood pressure less than 140/90 mmHg. Continue with amlodipine. Hold off on lisinopril given DAVID. Hydralazine as needed for systolic blood pressure more than 160 mmHg. Status: Acute (7) Diabetes: Insulin sliding scale. For now hold off on Levemir 15 units twice daily. Will reintroduce or restart as per blood sugars within next 24 hours. Status: Acute Qualifiers: Diabetes mellitus type: type 2 (8) Depression: Continue home dose of Lexapro, gabapentin, risperidone. Status: Acute Plan Analgesia: Tylenol as needed Glycemic control: Insulin sliding scale at moderate dose protocol. Hold off on Lantus 15 units twice daily. Check A1c. Nutrition: Dysphagia level 4 diet, carb consistent. Will advance as per mentation. Swallow evaluation. CODE STATUS: Full code as per paperwork from care home PUD prophylaxis: Protonix DVT prophylaxis: Heparin 5000 every 12 hourly. Discharge planning: Back to care home once medically stable Admit to [facility] floor. This documentation was created by [employer] dye reel operator software. Every effort was made to ensure accuracy of dye reel operator. Any obvious errors or omissions should be clarified with the author of the document. Plan for the day: Try to convince patient to take oral medications. Continue with IV antibiotics to finish a 5-day course. IV hydralazine 10 mg every 6 hours as needed for systolic blood pressure more than 160 mmHg. Restart home dose of Lexapro. Attestations Medical Necessity Statement*: Requires further hospitalization for management of altered mental status due to toxic metabolic encephalopathy in setting of worsening of baseline dementia from cystitis Time Spent in Patient Care: Greater than 35 minutes Coding Level of Care Code Acute Repairer Welding Equipment for Chg Fwd Diagnoses Sepsis A41.9 Altered mental status R41.82 UTI (urinary tract infection) N39.0 DAVID (acute kidney injury) N17.9 Diarrhea R19.7 HTN (hypertension) with goal to be determined I10 Diabetes E11.9 Diabetes mellitus type: type 2 Depression F32.A
[2022-02-07] MEDS: cefTRIAXone 1,000 MG in sodium chloride 0.9% (plus) 50 ML 100 MG IV (13:36)
[2022-02-07] MEDS: hyDRALAzine 20 mg/mL INJ 1 mL 10 MG IVP (13:37)
[2022-02-07] MEDS: TRAMadol 50 mg Tablet PO (16:45)
[2022-02-07 17:16] LABS: Glucose Point of Care 257 mg/dL (70-110)
--- NOTE | 2022-02-07 19:12 | PC.NURSE ---
pt took all of a.m. meds w/o difficulty...willingly..and accepted sliding scale insulin.at evening med pass..pt initially refused po meds.i called pt's daughter..and she spoke with pt and she agreed to take her meds.when i attempted to given them to her (crushed in pudding)..she again refused.i called daughter back and she spoke with pt.pt took 1/2 the teaspoon of pudding with meds..swallowed it..then took the rest and spit it out all over the covers.
--- NOTE | 2022-02-07 19:20 | PC.NURSE ---
Addendum entered by Anuja Hernandez RN 02/07/22 19:27: Informed Dr Barahona of patient's behavior at this time. Received instructions to let patient be without IV access and attempt at later time when patient is more cooperative. Will continue to monitor. Original Note: Patient confused at this time. Patient has removed IV, trying to get out of bed, pulling on fowler catheter. Patient also continues to refuse PO medications at this time.
[2022-02-07 21:02] LABS: Glucose Point of Care 87 mg/dL (70-110)
[2022-02-07] MEDS: atorvastatin 40 mg Tablet PO (21:26)
[2022-02-08] MEDS: heparin 5,000 unit/mL INJ 1 mL 5000 UNIT SUBCUT (04:06)
[2022-02-08 04:25] VITALS: BP 149/72; PULSE 68; RESP 18; TEMP 37.2; O2SAT 95
[2022-02-08 04:59] LABS: Alanine Aminotransferase 23 U/L (0-33); Albumin Level 3.3 g/dL (3.5-5.2); Alkaline Phosphatase 93 U/L (35-105); Aspartate Amino Transferase 43 U/L (0-32); Blood Urea Nitrogen 11 mg/dL (8-23); Calcium 9.4 mg/dL (8.5-10.5); Carbon Dioxide 22 mmol/L (22-29); Chloride 101 mmol/L (98-107); Glucose 167 mg/dL (65-115); Osmolality Calculated 287 mOsm/kg (285-295); Sodium 137 mmol/L (136-145); Total Bilirubin 0.6 mg/dL (0.15-1.2); Total Protein 7.3 g/dL (6.6-8.7)
[2022-02-08 05:08] LABS: Creatinine Clr Calc Pharmacy 42.6893
[2022-02-08 06:39] LABS: Glucose Point of Care 162 mg/dL (70-110)
[2022-02-08 07:42] VITALS: BP 124/88; PULSE 86; RESP 16; TEMP 37; O2SAT 94
[2022-02-08 08:00] VITALS: PULSE 70; O2SAT 95
[2022-02-08] MEDS: insulin lispro 100 unit/1 mL SUBCUT ×2 (08:55→12:55)
[2022-02-08] MEDS: sodium chloride 0.9% 1,000 ML 75 ML IV (08:56)
[2022-02-08] MEDS: lidocaine 1% 5 ML in potassium chloride premix 100 ML 25 ML IV (09:13)
[2022-02-08 11:14] LABS: Glucose Point of Care 157 mg/dL (70-110)
[2022-02-08 12:00] VITALS: BP 170/98; PULSE 70; RESP 16; TEMP 36.6; O2SAT 95
[2022-02-08 12:05] LABS: SARS Covid-2 Antigen Negative (Negative)
--- NOTE | 2022-02-08 12:48 | PM.DCS ---
Discharge Providers Date of Admission: 02/04/22 11:55 Date of Discharge: February 08, 2022 Attending Provider at Admission: Saleem Richardson MD Attending Provider at Discharge: Saleem Richardson MD Primary Care Provider: Law Manzanares MD Diagnoses at Discharge Discharge Diagnosis (1) Sepsis: Status: Acute (2) Altered mental status: Status: Acute (3) UTI (urinary tract infection): Status: Acute (4) DAVID (acute kidney injury): Status: Acute (5) Diarrhea: Status: Acute (6) HTN (hypertension) with goal to be determined: Status: Acute (7) Diabetes: Status: Acute Qualifiers: Diabetes mellitus type: type 2 (8) Depression: Status: Acute Reason for Visit Reason for Visit: decreased loc Hospital Course Hospital Course Anat Mark is a 76 year old female who is a resident at [facility], dementia unit, past medical history of type 2 diabetes mellitus, depression, hypertension, recent COVID-19 in December 2021 was brought in by the EMS today. As per the report from the EMS he was reported to have hypoxia down to low 80s in the half-way.? On arrival of EMS she was found to be having back cold peripheries.? After warming up her saturations at the half-way via EMS was in high 90s.? She was brought into the ER for further evaluation. On arrival in the ER patient saturation was still in 90s and improving as the core temperature was warmed up.? As per the ER physician patient was not responding on arrival but mentation slightly improved as peripheries became warm. On examination patient lying comfortably in bed with eyes closed, does not open eyes on verbal communication.? Able to tell me her name, speaks very softly, knows she is not at her home currently but not able to answer any questions or follow any purposeful commands. Blood work in the ER showed a white count of 11.5, hemoglobin of 15.6, ABG showing a PCO2 34, PO2 of 62 on room air, chemistry showing a sodium of 133, creatinine of 1.5 with a baseline creatinine of 0.7, UA showing numerous WBCs, 2+ leuk esterase but nitrate negative.? Patient did have CT chest abdomen pelvis along with chest x-ray as below. Patient admitted to hospital further evaluation and management. On admission she was found to be dehydrated with mild DAVID and urinalysis consistent with acute cystitis/UTI. She started on broad-spectrum antibiotics and fluids. Her blood cultures remain negative and urine culture was positive for Klebsiella. Antibiotics were changed as per sensitivities. Her hospitalization was otherwise remarkable. Patient came back to her baseline mentation which unfortunately is poor as well. Patient has times of being nonverbal and not taking her oral medications which is her baseline as per the half-way as well. She has been discharged hemodynamic stable condition back to half-way after finishing the course of IV antibiotics on her baseline medications. Physical Exam Narrative: General: No acute distress, AO x 1, soft-spoken, not following purposeful commands, chronically ill-appearing HEENT: PERRLA, pupils bilaterally equal and reactive Chest: Normal vesicular breath sounds, no added sounds, equal good air entry bilaterally CVS: S1-S2 regular, no murmurs, no tachycardia, no gallops, no rubs Abdomen: Soft, nontender, no organomegaly, bowel sounds present Neuro: No focal deficits, no facial deformity, laying with arms flexed but can passively extend. Moving all 4 limbs with a very Urinary Catheter Management: Barr: Cath Placed During This Visit: yes Reason for Continuing Indwelling Catheter: Acute Urinary Retention or Obstruction Urinary Catheter Date of Insertion: 02/06/22 Urinary Catheter Time of Insertion: 04:45 Discharge Data Studies Completed and Pending Completed Studies During Hospitalization Category Date Time Status CT kidney stone [id number] Stat Cat Scan 02/04/22 11:49 Completed XR chest 1V portable [id number] Stat Exams 02/04/22 10:19 Completed Pending at discharge Category Date Time Status Clostridioides Difficile PCR Routine Lab 02/04/22 13:26 Results Enteric Bacterial Panel by PCR Routine Lab 02/04/22 13:26 Results Enteric Parasite Panel by PCR Routine Lab 02/04/22 13:26 Results Immunochemical Fecal OCB Routine Lab 02/04/22 13:26 Results Lactoferrin Routine Lab 02/04/22 13:26 Results Radiology Impressions Chest X-Ray 02/04/22 10:19 Impression: Atherosclerosis. Abdomen/Pelvis CT 02/04/22 11:49 IMPRESSION: 1. No obstructing renal or ureteral calculi. 2. Dense sigmoid constipation. Sigmoid diverticulosis. No evidence of acute diverticulitis. 3. Diffuse bladder wall thickening with air in the nondependent bladder can be seen with cystitis/UTI. Recommend correlation for bladder instrumentation. 4. Prior cholecystectomy. 5. Small esophageal hiatal hernia. 6. Densely calcified abdominal aorta with the distal narrowing. Mid aorta measures approximately 2.3 x 2.5 cm AP by transverse. Laboratory Results WBC 6.3 10^3/uL (4.0-10.0) 02/07/22 04:17 RBC 4.44 10^6/uL (4.1-5.3) 02/07/22 04:17 Hgb 13.0 g/dL (11.5-15.3) 02/07/22 04:17 Hct 41.0 % (37.0-47.0) 02/07/22 04:17 MCV 92.3 fl (81-99) 02/07/22 04:17 MCH 29.3 pg (28.0-34.0) 02/07/22 04:17 MCHC 31.7 g/dL (30.0-36.0) 02/07/22 04:17 RDW 14.4 % (12.1-15.1) 02/07/22 04:17 Plt Count 195 10^3/cmm (130-400) 02/07/22 04:17 MPV 11.6 fL (7.4-10.4) H 02/07/22 04:17 Neut % (Auto) 52.3 % 02/07/22 04:17 Lymph % (Auto) 35.4 % 02/07/22 04:17 [place] % (Auto) 7.8 % 02/07/22 04:17 Eos % (Auto) 3.5 % 02/07/22 04:17 Baso % (Auto) 0.8 % 02/07/22 04:17 Neut # (Auto) 3.31 10^3/uL (1.8-7.7) 02/07/22 04:17 Lymph # (Auto) 2.2 10^3/uL (0.8-4.8) 02/07/22 04:17 [place] # (Auto) 0.5 10^3/uL (0.2-0.9) 02/07/22 04:17 Eos # (Auto) 0.2 10^3/uL (0.0-0.8) 02/07/22 04:17 Baso # (Auto) 0.1 10^3/uL (0.0-0.1) 02/07/22 04:17 Nucleated RBC % (auto) 0 % 02/07/22 04:17 Nucleated RBCs # 0.0 /100WBC 02/07/22 04:17 Specimen Type Arterial 02/04/22 11:16 Sample Site Radial, left 02/04/22 11:16 ABG pH 7.41 (7.35-7.45) 02/04/22 11:16 ABG pCO2 34.0 mmHg (35-45) L 02/04/22 11:16 ABG pO2 62.8 mmHg (80.0-100.0) L 02/04/22 11:16 ABG HCO3 21.7 mmol/L (22-26) L 02/04/22 11:16 ABG O2 Saturation 93.4 02/04/22 11:16 ABG Base Excess -2.1 mmol/L (-2.0-2.0) L 02/04/22 11:16 Iban Test Pos 02/04/22 11:16 A-a O2 Gradient 5.8 mmHg (5-10) 02/04/22 11:16 Hematocrit 47.8 % (37-47) H 02/04/22 11:16 Hgb O2 Saturation 91.7 % (95-100) L 02/04/22 11:16 Carboxyhemoglobin 1.1 %THgb (0.4-20.1) 02/04/22 11:16 Methemoglobin 0.8 % (0.4-1.5) 02/04/22 11:16 Total Hemoglobin 15.6 g/dL (12-16) 02/04/22 11:16 Sodium 136.0 mmol/L (131-143) 02/04/22 11:16 Potassium 4.1 mmol/L (3.5-5.0) 02/04/22 11:16 Glucose 416.0 mg/dL (70-115) H 02/04/22 11:16 Ionized Calcium 1.3 mmol/L (1.1-1.4) 02/04/22 11:16 O2 Delivery Device Room air 02/04/22 11:16 FiO2 21.0 % 02/04/22 11:16 Packaging Line Attendant ID Cak 02/04/22 11:16 Sodium 137 mmol/L (136-145) 02/08/22 04:09 Potassium 3.0 mmol/L (3.5-5.1) L 02/08/22 04:09 Chloride 101 mmol/L (98-107) 02/08/22 04:09 Carbon Dioxide 22 mmol/L (22-29) 02/08/22 04:09 Anion Gap 17.0 (5-19) 02/08/22 04:09 BUN 11 mg/dL (8-23) 02/08/22 04:09 Creatinine 1.0 mg/dL (0.5-0.9) H 02/08/22 04:09 GFR Calculation Not Reportable 02/08/22 04:09 Glucose 167 mg/dL (65-115) H 02/08/22 04:09 POC Glucose 157 mg/dL (70-110) H 02/08/22 10:57 Estimat Average Glucose 194 02/04/22 11:10 Hemoglobin A1c 8.4 % (4.0-6.0) H 02/04/22 11:10 Calculated Osmolality 287 mOsm/kg (285-295) 02/08/22 04:09 Calcium 9.4 mg/dL (8.5-10.5) 02/08/22 04:09 Phosphorus 2.8 mg/dL (2.5-4.5) 02/05/22 04:17 Magnesium 1.7 mg/dL (1.7-2.3) 02/04/22 11:10 Total Bilirubin 0.6 mg/dL (0.15-1.2) 02/08/22 04:09 AST 43 U/L (0-32) H 02/08/22 04:09 ALT 23 U/L (0-33) 02/08/22 04:09 Alkaline Phosphatase 93 U/L (35-105) 02/08/22 04:09 Troponin T Baseline 18 ng/L (0-10) H 02/04/22 11:10 Troponin T 120 Minute 17.13 ng/L (0-10) H 02/04/22 13:05 Delta Troponin T -0.87 ABS# (0-10) L 02/04/22 13:05 Troponin T Hi Sens 6Hr 17.94 ng/L (0-10) H 02/04/22 17:07 Troponin T Hi Sens 6Hr Delta -0.06 ng/L (0-12) L 02/04/22 17:07 Total Protein 7.3 g/dL (6.6-8.7) 02/08/22 04:09 Albumin 3.3 g/dL (3.5-5.2) L 02/08/22 04:09 Globulin 4.0 g/dL (1.3-4.6) 02/08/22 04:09 Triglycerides 319 mg/dL (0-150) H 02/05/22 04:17 Cholesterol 282 mg/dL (0-200) H 02/05/22 04:17 LDL Cholesterol, Calc 198 mg/dL (50-129) H 02/05/22 04:17 HDL Cholesterol 20 mg/dL (60-100) L 02/05/22 04:17 LDL/HDL Ratio 9.90 RATIO (0.00-3.22) H 02/05/22 04:17 Cholesterol/HDL Ratio 14.10 mg/dL (0.0-4.40) H 02/05/22 04:17 Procalcitonin 0.32 ng/mL (0-0.5) 02/04/22 11:10 TSH 1.88 uIU/mL (0.27-4.20) 02/04/22 11:10 Urine Color Yellow (Yellow) 02/04/22 11:20 Urine Appearance Clear (CLEAR) 02/04/22 11:20 Urine pH 5 (5-7) 02/04/22 11:20 Ur Specific [place] 1.015 (1.005-1.030) 02/04/22 11:20 Urine Protein 2+ (Negative) H 02/04/22 11:20 Urine Glucose (UA) Norm (Normal) 02/04/22 11:20 Urine Ketones 1+ (Negative) H 02/04/22 11:20 Urine Blood 2+ (Negative) H 02/04/22 11:20 Urine Nitrate Negative (Negative) 02/04/22 11:20 Urine Bilirubin Neg (Negative) 02/04/22 11:20 Urine Urobilinogen 1 mg/dL (Negative) H 02/04/22 11:20 Ur Leukocyte Esterase 2+ (Negative) H 02/04/22 11:20 Urine RBC 0-4 /hpf (0-2) H 02/04/22 11:20 Urine WBC Too numerous to cnt /hpf (0-5) H 02/04/22 11:20 Ur Squamous Epith Cells 0-4 /hpf (0-5) H 02/04/22 11:20 Amorphous Sediment Not Reportable 02/04/22 11:20 Urine Bacteria 4+ /hpf (NONE) H 02/04/22 11:20 SARS-CoV-2 Ag (Rapid) Negative (Negative) 02/08/22 Unknown Vitals Last Vital Signs Temp 97.9 F 02/08/22 12:00 Pulse 70 02/08/22 12:00 Resp 16 02/08/22 12:00 BP 170/98 02/08/22 12:00 Pulse Ox 95 02/08/22 12:00 O2 Del Method 02/08/22 12:00 Discharge Plan Discharge Patient Disposition: Xfer SNF Condition: Stable Prescriptions: New hydralazine 25 mg Tablet 25 mg PO TID 30 Days Qty: 90 0RF Continued gabapentin [Neurontin] 300 mg capsule 300 mg PO TID pantoprazole [Protonix] 40 mg tablet,delayed release (DR/EC) 40 mg PO DAILY risperidone 0.25 mg tablet 0.25 mg PO BID escitalopram oxalate [Lexapro] 10 mg tablet 20 mg PO DAILY tramadol 50 mg tablet 50 mg PO BID PRN (Reason: Pain) sitagliptin 50 mg tablet 50 mg PO DAILY Qty: 90 0RF amlodipine 10 mg tablet 10 mg PO DAILY Qty: 30 0RF insulin aspart U-100 [Novolog Flexpen U-100 Insulin] 100 unit/mL (3 mL) insulin pen See Rx Instructions .ROUTE .COMPLEX Qty: 15 0RF Rx Instructions: Inject, subcu, 3 times daily, after meals, based on sliding scale provided Tylenol 325 mg Tablet 325 mg PO QID PRN (Reason: Pain) Levemir U-100 Insulin 100 unit/mL solution 15 unit SUBCUT BID Discontinued lisinopril 40 mg tablet 20 mg PO DAILY Qty: 0 0RF Discharge Orders: Discharge Order (Routine); Ordered 02/08/22 Ordered By: Saleem Richardson Referrals: [facility] [Outside] Law Manzanares MD [Primary Care Provider] - 4-7 days Discharge Diet: Regular Discharge Activity: Resume usual activity and Increase activity as tolerated Patient Instructions: Opioid Safety Activity Restrictions/Additional Instructions: Please follow-up with a primary care provider within next 1 week. Lisinopril has been stopped instead hydralazine has been started. Patient has been having episodes of being nonverbal and not taking her oral medications. Discharge Attestations Time Spent in Discharge Care*: greater than 30 min Specific Discharge Activities: discussing with rn case management/social workers/dc planners, documenting/other paperwork and evaluating patient/reviewing data Status at Discharge: Cognitive status at discharge: severely impaired cognition, Behavioral status at discharge: cooperative, Functional status at discharge: bed bound, Overall status at discharge: patient is back to baseline Quality Metrics Clinical Quality Measures [ No reported AMI, CVA or VTE this stay] Coding Level of Care Code Acute Chg FW DC note Diagnoses Sepsis A41.9 Altered mental status R41.82 UTI (urinary tract infection) N39.0 DAVID (acute kidney injury) N17.9 Diarrhea R19.7 HTN (hypertension) with goal to be determined I10 Diabetes E11.9 Diabetes mellitus type: type 2 Depression F32.A
[2022-02-08 13:11] VITALS: BP 170/98; PULSE 70; RESP 16; TEMP 36.6; O2SAT 95
[2022-02-08] MEDS: TRAMadol 50 mg Tablet PO (15:01)
[2022-02-08 16:00] VITALS: BP 150/85; PULSE 75; RESP 16; TEMP 37.1; O2SAT 96
== END 2022-02-08 16:44 | disposition skilled nursing facility (03) | DRG 689 ==
LOC: ER 11:09 → MEDSURG 14:04
PROVIDERS: Admitting Provider Student in an Organized Health Care Education/Training Program; Emergency Provider Family Medicine; PCP Internal Medicine; Visit Provider Student in an Organized Health Care Education/Training Program
DX: N30.00 Acute cystitis without hematuria (principal); G93.41 Metabolic encephalopathy; N17.9 Acute kidney failure, unspecified; B96.1 Klebsiella pneumoniae [K. pneumoniae] as the cause of diseases classified elsewhere; E86.0 Dehydration; R19.7 Diarrhea, unspecified; I10 Essential (primary) hypertension; E11.9 Type 2 diabetes mellitus without complications; F32.A Depression, unspecified; F03.90 Unspecified dementia, unspecified severity, without behavioral disturbance, psychotic disturbance, mood disturbance, and anxiety; Z86.16 Personal history of COVID-19
CPT/HCPCS: 36415; 36416; 36600; 51702; 71045; 74176; 80051; 80053; 80061; 81001; 82274; 82330; 82805; 82962; 83036; 83630; 83735; 84100; 84145; 84443; 84484; 85025; 87077; 87086; 87186; 87426; 87493; 87506; 93005; 94664; 96365; 96372; 99285; J0360; J0696; J1644; J1815; J3480; J7030

== ENCOUNTER 2022-02-13 12:45 | Inpatient (IN) | payer MEDICARE, MEDICAID, SELFPAY ==
[2022-02-13] VITALS (8 sets, daily range): BP systolic 115–143; BP diastolic 56–73; PULSE 64–66; RESP 12–21; TEMP 35.7–36.8; O2SAT 90–97; BMI 29.2
--- NOTE | 2022-02-13 12:52 | CTR_ITS ---
PROCEDURE INFORMATION: Exam: CT Head Without Contrast Exam date and time: 02/13/2022 12:59 PM Age: 76 years old Clinical indication: Altered mental status/memory loss; Additional info: AMS TECHNIQUE: Imaging protocol: Computed tomography of the head without contrast. Radiation optimization: All CT scans at this facility use at least one of these dose optimization techniques: automated exposure control; mA and/or kV adjustment per patient size (includes targeted exams where dose is matched to clinical indication); or iterative reconstruction. COMPARISON: CT head wo con* [id number] 08/22/2021 8:40 PM RADIATION DOSE METRICS: Total DLP (mGy-cm): 1033.98 FINDINGS: Brain: There is cerebral volume loss appropriate for age No hemorrhage. Unremarkable white matter. No mass effect. Cerebral ventricles: Moderate ventriculomegaly appropriate for age. Paranasal sinuses: Visualized sinuses are unremarkable. No fluid levels. Mastoid air cells: Visualized mastoid air cells are well aerated. Bones/joints: Unremarkable. No acute fracture. Soft tissues: Unremarkable. CT/CT head wo con* [id number] IMPRESSION: No acute intracranial abnormality.
--- NOTE | 2022-02-13 12:52 | XRR_ITS ---
PROCEDURE INFORMATION: Exam: XR Chest Exam date and time: 02/13/2022 1:03 PM Age: 76 years old Clinical indication: Dyspnea TECHNIQUE: Imaging protocol: Radiologic exam of the chest. Views: 1 view. COMPARISON: CR XR chest 1V portable [id number] 02/04/2022 10:33 AM FINDINGS: Lungs: Unremarkable. No consolidation. Pleural spaces: Unremarkable. No pleural effusion. No pneumothorax. Heart/Mediastinum: Unremarkable. No cardiomegaly. Bones/joints: Unremarkable. XR/XR chest 1V portable [id number] IMPRESSION: No acute findings.
--- NOTE | 2022-02-13 12:56 | ED_ITS ---
HPI - General Adult General: Chief complaint: Altered Mental Status Stated complaint: DEMENTIA/ POSSIBLE SEPSIS Time Seen by Provider: 02/13/22 12:48 History of Present Illness: Patient is a 76-year-old female with a history of baseline dementia, depression, diabetes, hypertension, hyperlipidemia who presents the emergency room for evaluation of altered mental status. Earlier today, patient was reported to have decreased responsiveness at custodial. EMS was called for decreased level of consciousness. By time EMS arrived, patient was responding. [facility] thinks the patient may have increased confusion and would like patient to be checked out for this. On arrival, amriah adriana is AAO x1 and not following commands. Patient is occasionally answering questions. History limited. Onset: unknown Duration:unknown Location:custodial Severity:moderate Review of Systems General: Reports: ROS unobtainable due to mental status Neuro: Reports: other (+increased confusion) PFS ED PFSH: Medical History Arthritis Depression Diabetes Diabetes type 2, uncontrolled Dysthymia HTN (hypertension) with goal to be determined Mixed hyperlipidemia Other chronic pain Other fatigue Radiculopathy, lumbar region Vitamin D deficiency, unspecified Surgical History History of cholecystectomy Family History Other Cancer Hypertension Myocardial infarct Social History Smoking and tobacco status: never smoked Alcohol intake: never Physical Exam Const: COMMON NORMALS: alert HENMT: COMMON NORMALS: atraumatic HEAD & SCALP: atraumatic MOUTH: moist mucous membranes not abnormal Eye: COMMON NORMALS: EOMs intact bilaterally and conjunctivae normal CONJUNCTIVA: Yes conjunctivae normal Neck/C-Spine: COMMON NORMALS: full ROM and supple Resp: COMMON NORMALS: normal respiratory effort and clear to auscultation bilaterally AUSCULTATION: clear to auscultation bilaterally Cardio: COMMON NORMALS: regular rate RATE: regular rate GI: COMMON NORMALS: Soft to palpation and non-tender PALPATION: Yes Soft to palpation OTHER: No focal TTP. NO guarding rebound, guarding, rigidity. No CVA tenderness to percussion. Neg Mustafa/Neg McBurney's point tenderness, no suprabupic tenderness to palpation. Extremity: COMMON NORMALS: full ROM Neuro: SENSORIUM/ORIENTATION: Yes alert MOTOR EXAM: No Abnormal motor st rength present and Other motor observations present (no focal motor deficits) OTHER: AAO x1, confused, occasionally answering questions, moving all extremities Psych: COMMON NORMALS: speech normal SPEECH: Yes normal speech MOOD & AFFECT: Yes euthymic mood Course Vital Signs: Vital signs: Vital Signs Temperature 96.2 F L 02/13/22 12:46 Pulse Rate 65 02/13/22 14:55 Respiratory Rate 21 H 02/13/22 14:55 Blood Pressure 115/57 02/13/22 14:55 Pulse Oximetry 97 02/13/22 14:55 Oxygen Delivery Me thod 02/13/22 14:55 MDM - General Adult Medical Decision Making Patient is a 76-year-old female with a history of baseline dementia, depression, diabetes, hypertension, hyperlipidemia who presents the emergency room for evaluation of altered mental status. On arrival, patient is AAO x1, confused, occasionally answering questions. Patient is moving all extremities. Exam is unremarkable. Patient is hemodynamically stable. Lab work-up including UA is negative for any acute findings. Troponin x2 with delta less than 5. X-ray chest is clear for any acute pathology. CT head is negative for any acute intracranial pathology. Patient received IVF. Patient per family is at back to baseline at the present time. UA is consistent with UTI. Patient received ceftriaxone in the ED. I discussed case with patient's family who would like patient to be admitted for observation and IV antibiotics. Patient family thinks that patient was not getting quality care custodial. Patient has an DAVID, altered mental status, and UTI. We will admit patient for IV antibiotics. Disposition: admission Lab Data : 02/13/22 13:24 02/13/22 13:24 Radiology Impressions Chest X-Ray 02/13/22 12:52 IMPRESSION: No acute findings. Head CT 02/13/22 12:52 IMPRESSION: No acute intracranial abnormality. Laboratory Results WBC 8.7 10^3/uL (4.0-10.0) 02/13/22 13:24 RBC 4.84 10^6/uL (4.1-5.3) 02/13/22 13:24 Hgb 14.2 g/dL (11.5-15.3) 02/13/22 13:24 Hct 44.3 % (37.0-47.0) 02/13/22 13:24 MCV 91.5 fl (81-99) 02/13/22 13:24 MCH 29.3 pg (28.0-34.0) 02/13/22 13:24 MCHC 32.1 g/dL (30.0-36.0) 02/13/22 13:24 RDW 14.7 % (12.1-15.1) 02/13/22 13:24 Plt Count 257 10^3/cmm (130-400) 02/13/22 13:24 MPV 10.8 fL (7.4-10.4) H 02/13/22 13:24 Neut % (Auto) 71.3 % 02/13/22 13:24 Lymph % (Auto) 20.2 % 02/13/22 13:24 [place] % (Auto) 6.7 % 02/13/22 13:24 Eos % (Auto) 1.0 % 02/13/22 13:24 Baso % (Auto) 0.6 % 02/13/22 13:24 Neut # (Auto) 6.16 10^3/uL (1.8-7.7) 02/13/22 13:24 Lymph # (Auto) 1.8 10^3/uL (0.8-4.8) 02/13/22 13:24 [place] # (Auto) 0.6 10^3/uL (0.2-0.9) 02/13/22 13:24 Eos # (Auto) 0.1 10^3/uL (0.0-0.8) 02/13/22 13:24 Baso # (Auto) 0.1 10^3/uL (0.0-0.1) 02/13/22 13:24 Nucleated RBC % (auto) 0 % 02/13/22 13:24 Nucleated RBCs # 0.0 /100WBC 02/13/22 13:24 Sodium 137 mmol/L (136-145) 02/13/22 13:24 Potassium 3.5 mmol/L (3.5-5.1) 02/13/22 13:24 Chloride 100 mmol/L (98-107) 02/13/22 13:24 Carbon Dioxide 26 mmol/L (22-29) 02/13/22 13:24 Anion Gap 14.5 (5-19) 02/13/22 13:24 BUN 25 mg/dL (8-23) H 02/13/22 13:24 Creatinine 1.2 mg/dL (0.5-0.9) H 02/13/22 13:24 GFR Calculation Not Reportable 02/13/22 13:24 Glucose 153 mg/dL (65-115) H 02/13/22 13:24 POC Glucose 140 mg/dL (70-110) H 02/13/22 12:57 Calculated Osmolality 291 mOsm/kg (285-295) 02/13/22 13:24 Lactate 1.8 mmol/L (0.5-2.2) 02/13/22 13:24 Calcium 10.0 mg/dL (8.5-10.5) 02/13/22 13:24 Total Bilirubin 0.7 mg/dL (0.15-1.2) 02/13/22 13:24 AST 40 U/L (0-32) H 02/13/22 13:24 ALT 26 U/L (0-33) 02/13/22 13:24 Alkaline Phosphatase 86 U/L (35-105) 02/13/22 13:24 Troponin T Baseline 37 ng/L (0-10) H 02/13/22 13:24 Troponin T 120 Minute 37.64 ng/L (0-10) H 02/13/22 15:12 Delta Troponin T 0.64 ABS# (0-10) 02/13/22 15:12 Total Protein 7.4 g/dL (6.6-8.7) 02/13/22 13:24 Albumin 3.6 g/dL (3.5-5.2) 02/13/22 13:24 Globulin 3.8 g/dL (1.3-4.6) 02/13/22 13:24 Lipase 24 U/L (13-60) 02/13/22 13:24 TSH 1.18 uIU/mL (0.27-4.20) 02/13/22 13:24 Free T4 1.25 ng/dL (0.82-1.77) 02/13/22 13:24 Urine Color Yellow (Yellow) 02/13/22 13:57 Urine Appearance Hazy (CLEAR) A 02/13/22 13:57 Urine pH 5 (5-7) 02/13/22 13:57 Ur Specific [place] 1.020 (1.005-1.030) 02/13/22 13:57 Urine Protein 1+ (Negative) H 02/13/22 13:57 Urine Glucose (UA) Norm (Normal) 02/13/22 13:57 Urine Ketones 1+ (Negative) H 02/13/22 13:57 Urine Blood 2+ (Negative) H 02/13/22 13:57 Urine Nitrate Negative (Negative) 02/13/22 13:57 Urine Bilirubin 1+ (Negative) H 02/13/22 13:57 Urine Urobilinogen 1 mg/dL (Negative) H 02/13/22 13:57 Ur Leukocyte Esterase 2+ (Negative) H 02/13/22 13:57 Urine RBC 15-25 /hpf (0-2) H 02/13/22 13:57 Urine WBC Too numerous to cnt /hpf (0-5) H 02/13/22 13:57 Ur Squamous Epith Cells 15-25 /hpf (0-5) H 02/13/22 13:57 Ur Transition Epith Cell 0-4 /hpf 02/13/22 13:57 Amorphous Sediment Not Reportable 02/13/22 13:57 Urine Bacteria 2+ /hpf (NONE) H 02/13/22 13:57 Salicylates < 0.3 mg/dL (3-10) L 02/13/22 13:24 Acetaminophen < 5.0 ug/mL (10-30) L 02/13/22 13:24 Imaging Data Other Imaging: Radiologist's impression: [address] [address] [address] Scan Report Signed Patient: Anat Mark Unit #: [id number] : 1945 Age/Sex: 76 / F ADM Date: 02/13/22 Loc: ER Room/Bed: Attending Dr: Ordering Provider/Ordering MD: Mir Garcia MD Date of Service: 02/13/22 Procedure(s): CT head wo con* [id number] Accession Number(s): [id number] Report Number: [id number] PROCEDURE INFORMATION: Exam: CT Head Without Contrast Exam date and time: 02/13/2022 12:59 PM Age: 76 years old Clinical indication: Altered mental status/memory loss; Additional info: AMS TECHNIQUE: Imaging protocol: Computed tomography of the head without contrast. Radiation optimization: All CT scans at this facility use at least one of these dose optimization techniques: automated exposure control; mA and/or kV adjustment per patient size (includes targeted exams where dose is matched to clinical indication); or iterative reconstruction. COMPARISON: CT head wo con* [id number] 08/22/2021 8:40 PM RADIATION DOSE METRICS: Total DLP (mGy-cm): 1033.98 FINDINGS: Brain:? There is cerebral volume loss appropriate for age No hemorrhage. Unremarkable white matter. No mass effect. Cerebral ventricles:? Moderate ventriculomegaly appropriate for age. Paranasal sinuses: Visualized sinuses are unremarkable. No fluid levels. Mastoid air cells: Visualized mastoid air cells are well aerated. Bones/joints: Unremarkable. No acute fracture. Soft tissues: Unremarkable. CT/CT head wo con* [id number] IMPRESSION: No acute intracranial abnormality. ? Dictated By: Jack Segovia Signed By: Jack Segovia Signed Date/Time: 02/13/22 1333 DD/ [address] [address] XRay Report Signed Patient: Anat Mark Unit #: [id number] : 1945 Age/Sex: 76 / F ADM Date: 02/13/22 Loc: ER Room/Bed: Attending Dr: Ordering Provider/Ordering MD: Mir Garcia MD Date of Service: 02/13/22 Procedure(s): XR chest 1V portable [id number] Accession Number(s): [id number] Report Number: [id number] PROCEDURE INFORMATION: Exam: XR Chest Exam date and time: 02/13/2022 1:03 PM Age: 76 years old Clinical indication: Dyspnea TECHNIQUE: Imaging protocol: Radiologic exam of the chest. Views: 1 view. COMPARISON: CR XR chest 1V portable [id number] 02/04/2022 10:33 AM FINDINGS: Lungs: Unremarkable. No consolidation. Pleural spaces: Unremarkable. No pleural effusion. No pneumothorax. Heart/Mediastinum: Unremarkable. No cardiomegaly. Bones/joints: Unremarkable. XR/XR chest 1V portable [id number] IMPRESSION: No acute findings. ? Dictated By: Jack Segovia Signed By: Jack Segovia Signed Date/Time: 02/13/22 1329 DD/ 1303 Discharge Plan Discharge Patient Disposition: Admitted As Inpatient Clinical Impression: Altered mental status, UTI (urinary tract infection), DAVID (acute kidney injury) Condition: Stable Discharge Diet: Advance as tolerated Discharge Activity: Increase activity as tolerated Coding Level of Care Code ED Incinerator Plant Laborer for Chg Fwd Exam Comprehensive
[2022-02-13 13:00] LABS: Glucose Point of Care 140 mg/dL (70-110)
--- NOTE | 2022-02-13 13:14 | ECG_ITS ---
[facility] Test Date: 2022-02-13 Pat Name: Anat Mark Department: Room: Gender: Female Experiential Therapist: : 1945 Requested By: Mir Garcia Order Number: [id number] Reading MD: Jasiel Louis M.D. Measurements Intervals [place] Rate: 67 P: 9 ME: 140 QRS: 81 QRSD: 102 T: 46 QT: 420 QTc: 445 Interpretive Statements SINUS RHYTHM WITH OCCASIONAL SUPRAVENTRICULAR PREMATURE COMPLEXES LOW QRS VOLTAGE IN PRECORDIAL LEADS [QRS DEFLECTION < 1.0 mV IN CHEST LEADS] PATTERN CONSISTENT WITH PULMONARY DISEASE MODERATE T-WAVE ABNORMALITY, CONSIDER ANTERIOR ISCHEMIA [-0.1+ mV T-WAVE IN V3/V4] Compared to ECG 02/04/2022 16:03:33 Low QRS voltage now present Atrial abnormality no longer present T-wave abnormality still present Possible ischemia still present Electronically Signed On 02-14-2022 8:32:10 CDT by Jasiel Louis M.D. [email or web address] [email or web address]/store/[id number] f
[2022-02-13 13:39] LABS: Basophils # 0.1 10^3/uL (0.0-0.1); Basophils % 0.6 %; Eosinophils # 0.1 10^3/uL (0.0-0.8); Hematocrit 44.3 % (37.0-47.0); Hemoglobin 14.2 g/dL (11.5-15.3); Lymphocytes # 1.8 10^3/uL (0.8-4.8); Lymphocytes % 20.2 %; Mean Corpuscular HGB Conc 32.1 g/dL (30.0-36.0); Mean Corpuscular Hemoglobin 29.3 pg (28.0-34.0); Mean Corpuscular Volume 91.5 fl (81-99); Mean Platelet Volume 10.8 fL (7.4-10.4); Monocytes # 0.6 10^3/uL (0.2-0.9); Monocytes % 6.7 %; Neutrophils # 6.16 10^3/uL (1.8-7.7); Neutrophils % 71.3 %; Nucleated Red Blood Cells % 0 %; Platelet Count 257 10^3/cmm (130-400); Red Blood Count 4.84 10^6/uL (4.1-5.3); Red Cell Distribution Width 14.7 % (12.1-15.1); White Blood Count 8.7 10^3/uL (4.0-10.0)
[2022-02-13 13:55] LABS: Lactate (Lactic Acid level) 1.8 mmol/L (0.5-2.2)
[2022-02-13 14:01] LABS: Troponin(5th) Baseline 37 ng/L (0-10)
[2022-02-13 14:11] LABS: Acetaminophen < 5.0 ug/mL (10-30); Alanine Aminotransferase 26 U/L (0-33); Albumin Level 3.6 g/dL (3.5-5.2); Alkaline Phosphatase 86 U/L (35-105); Anion Gap 14.5 (5-19); Aspartate Amino Transferase 40 U/L (0-32); Blood Urea Nitrogen 25 mg/dL (8-23); Carbon Dioxide 26 mmol/L (22-29); Chloride 100 mmol/L (98-107); Free T4 Free Thyroxine 1.25 ng/dL (0.82-1.77); Globulin 3.8 g/dL (1.3-4.6); Glucose 153 mg/dL (65-115); Lipase 24 U/L (13-60); Osmolality Calculated 291 mOsm/kg (285-295); Potassium 3.5 mmol/L (3.5-5.1); Salicylate < 0.3 mg/dL (3-10); Sodium 137 mmol/L (136-145); Thyroid Stimulating Hormone 1.18 uIU/mL (0.27-4.20); Total Bilirubin 0.7 mg/dL (0.15-1.2); Total Protein 7.4 g/dL (6.6-8.7)
--- NOTE | 2022-02-13 14:15 | PC.NURSE ---
PT PLACED ON CONTINUOUS NIBP ,SPO2, AND CM
[2022-02-13 14:48] LABS: Protein Urine 1+ (Negative); Urine Appearance Hazy (CLEAR); Urine Color Yellow (Yellow); pH Urine 5 (5-7)
[2022-02-13 14:49] LABS: Add Urine Microscopic? YES; Bilirubin Urine 1+ (Negative); Blood Urine 2+ (Negative); Glucose Urine UA Norm (Normal); Ketones Urine 1+ (Negative); Leukocyte Esterase Urine 2+ (Negative); Nitrate Urine Negative (Negative); Urobilinogen Urine 1 mg/dL (Negative)
[2022-02-13 14:50] LABS: WBC Urine TOO NUMEROUS TO CNT /hpf (0-5)
[2022-02-13 14:52] LABS: Bacteria Urine 2+ /hpf; RBC Urine 15-25 /hpf (0-2); Squamous Epithelial Cell Urine 15-25 /hpf (0-5); Transitional Epi Cells Urine 0-4 /hpf
[2022-02-13 14:53] LABS: Add Urine Culture? No
[2022-02-13] MEDS: cefTRIAXone 1,000 MG in sodium chloride 0.9% (plus) 50 ML 100 MG IV (15:04)
--- NOTE | 2022-02-13 16:05 | ECG_ITS ---
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 Measurements Intervals [place] Rate: 65 P: 5 TX: 142 QRS: 48 QRSD: 102 T: 12 QT: 414 QTc: 433 Interpretive Statements SINUS RHYTHM WITH OCCASIONAL SUPRAVENTRICULAR PREMATURE COMPLEXES Minor ST and T wave changes. Compared to ECG 02/13/2022 13:14:31 ST and T wave changes less pronounced than prior tracing Electronically Signed On 02-14-2022 8:38:42 CDT by Jasiel Louis M.D. [email or web address] [email or web address].[employer]/store/OM/[id number]
[2022-02-13 16:11] LABS: Troponin 5 2HR 37.64 ng/L (0-10)
[2022-02-13 16:16] LABS: Troponin 5 2HR Delta 0.64 ABS# (0-10)
--- NOTE | 2022-02-13 16:46 | CTR_ITS ---
PROCEDURE INFORMATION: Exam: CT Abdomen And Pelvis Without Contrast Exam date and time: 02/13/2022 5:01 PM Age: 76 years old Clinical indication: Abdominal pain; Generalized; Prior surgery; Surgery date: 6+ months; Surgery type: Gb; Additional info: Eval for stone TECHNIQUE: Imaging protocol: Computed tomography of the abdomen and pelvis without contrast. Radiation optimization: All CT scans at this facility use at least one of these dose optimization techniques: automated exposure control; mA and/or kV adjustment per patient size (includes targeted exams where dose is matched to clinical indication); or iterative reconstruction. COMPARISON: CT kidney stone [id number] 02/04/2022 12:03 PM RADIATION DOSE METRICS: Total DLP (mGy-cm): 785.76 FINDINGS: Liver: Normal. No mass. Gallbladder and bile ducts: Cholecystectomy is present.. Pancreas: Normal. No ductal dilation. Spleen: Normal. No splenomegaly. Adrenal glands: Normal. No mass. Kidneys and ureters: Normal. No hydronephrosis. Negative for kidney stones Stomach and bowel: There are multiple scattered sigmoid colon diverticuli.. No obstruction. No mucosal thickening. Appendix: No evidence of appendicitis. Visible appendix appears normal. Intraperitoneal space: Unremarkable. No free air. No significant fluid collection. Vasculature: Heavy aortic calcification No abdominal aortic aneurysm. Lymph nodes: Unremarkable. No enlarged lymph nodes. Urinary bladder: Dilated with fluid no intrinsic abnormality as visualized. Reproductive: Unremarkable as visualized. Bones/joints: Unremarkable. No acute fracture. Soft tissues: Unremarkable. CT/CT abdomen pelvis wo con [id number] IMPRESSION: 1. No acute findings. 2. Cholecystectomy. 3. Negative examination of the kidneys no stones. 4. Heavy aortic calcification without aneurysm. 5. Diverticulosis of the sigmoid colon
--- NOTE | 2022-02-13 17:41 | PM.HP ---
Providers/Chief Complaint Primary Care Provider: Law Manzanares MD Chief Complaint: DEMENTIA/ POSSIBLE SEPSIS History of Present Illness 76-[facility]-old lady shelter dementia unit resident was brought in for evaluation due to decreased responsiveness. During my visit she appears minimally conscious, she does not wake up to voice, shoulder squeeze, does withdraw from pain, opens her eyes, falls back asleep promptly. Does not follow directions. With altered mental status with urinary tract infection, cultures growing Klebsiella, for which she completed a course of treatment. He is similarly having lower body temperature, 96.2. UA again is suspicious for urinary tract infection with too numerous to count WBC, 15-25 RBC, 2+ bacteria. Does have in 25, spicular cells. CT abdomen pelvis with dilated urinary bladder, no hydronephrosis. CT of the head without acute abnormality. Chest x-ray nonacute. Thyroid studies unremarkable. Mild elevation of high-sensitivity troponin. BUN 25, creatinine 1.2. Review of Systems General: Reports: ROS unobtainable due to mental status Medications/Allergies Home Medications Medication Instructions Recorded Confirmed Last Taken Type amlodipine 10 mg tablet 10 mg PO DAILY #30 tabs 09/23/20 02/13/22 02/04/22 Rx escitalopram oxalate 10 mg tablet 20 mg PO DAILY 12/02/20 02/13/22 02/04/22 History (Lexapro) tramadol 50 mg tablet 50 mg PO BID PRN Pain 12/02/20 02/13/22 02/04/22 History gabapentin 300 mg capsule 300 mg PO TID 04/27/21 02/13/22 02/04/22 History (Neurontin) pantoprazole 40 mg tablet,delayed 40 mg PO DAILY 04/27/21 02/13/22 02/04/22 History release (Protonix) risperidone 0.25 mg tablet 0.25 mg PO BID 04/27/21 02/13/22 02/13/22 History insulin aspart U-100 100 unit/mL See Rx Instructions .Route 08/25/21 02/13/22 02/04/22 Rx (3 mL) subcutaneous pen (Novolog .COMPLEX #15 mL Flexpen U-100 Insulin aspart) sitagliptin 50 mg tablet 50 mg PO DAILY #90 tabs 09/29/21 02/13/22 02/04/22 Rx acetaminophen 325 mg tablet 325 mg PO QID PRN Pain 02/04/22 02/13/22 Unknown History (Tylenol) insulin detemir U-100 100 unit/mL 15 unit SUBCUT BID 02/04/22 02/13/22 02/04/22 History subcutaneous solution (Levemir U-100 Insulin) hydralazine 25 mg tablet 25 mg PO TID 30 days #90 tabs 02/08/22 02/13/22 Unknown Rx Allergies Allergy/AdvReac Type Severity Reaction Status Date / Time No Known Allergies Allergy Verified 02/05/22 09:51 PFSH Acute PFSH: Medical History Arthritis Depression Diabetes Diabetes type 2, uncontrolled Dysthymia HTN (hypertension) with goal to be determined Mixed hyperlipidemia Other chronic pain Other fatigue Radiculopathy, lumbar region Vitamin D deficiency, unspecified Surgical History History of cholecystectomy Family History Other Cancer Hypertension Myocardial infarct Social History Smoking and tobacco status: never smoked Alcohol intake: never Vitals/I&O/Wt Last Vital Signs Temp 96.2 F L 02/13/22 12:46 Pulse 65 02/13/22 14:55 Resp 21 H 02/13/22 14:55 BP 115/57 02/13/22 14:55 Pulse Ox 97 02/13/22 14:55 O2 Del Method 02/13/22 14:55 02/13/22 02/13/22 02/13/22 06:59 14:59 22:59 Intake Total 50 / 50 Balance 50 / 50 Weight last 48 hrs Weight 77.111 kg Physical Exam Const: GENERAL APPEARANCE: not cooperative ORIENTATION/CONSCIOUSNESS: Yes patient obtunded HENMT: OTHER: Dentures Neck/C-Spine: COMMON NORMALS: no JVD Resp: COMMON NORMALS: normal respiratory effort and clear to auscultation bilaterally AUSCULTATION: clear to auscultation bilaterally Cardio: COMMON NORMALS: no JVD, regular rhythm, S1 normal heart sound present, S2 normal heart sound present and No murmurs present (Cardio) RHYTHM: regular rhythm HEART SOUNDS: S1 normal heart sound present and S2 normal heart sound present GI: COMMON NORMALS: Normal to inspection, nondistended, normoactive bowel sounds present, Soft to palpation and non-tender PALPATION: Yes Soft to palpation Extremity: COMMON NORMALS: no joint enlargement and no pedal edema Neuro: COMMON NORMALS: moves all extremities OTHER: Lethargic, withdraws from pain, opens eyes temporarily, falls back asleep. Skin: COMMON NORMALS: no rashes or lesions noted GENERAL SKIN EXAM: no rashes or lesions noted Data : 02/13/22 13:24 02/13/22 13:24 Micro: Microbiology 02/13/22 13:27 Blood Culture - Preliminary Blood SPECIMEN COLLECTED 02/13/22 13:24 Blood Culture - Preliminary Blood SPECIMEN COLLECTED A&P Assessment and plan (1) Altered mental status: Please possibly combination from acute metabolic encephalopathy from urinary tract infection, superimposed on chronic dementia, possibly also contribution from hypothermia. Patient also had urine distended bladder. Place Barr catheter. N.p.o. low rate IVF. Status: Acute (2) UTI (urinary tract infection): Started on ceftriaxone, prior culture results with E. coli, more recently Klebsiella, sensitive to ceftriaxone. Continue. Status: Acute (3) DAVID (acute kidney injury): Gentle fluid challenge. Urine distended bladder on CT. No hydronephrosis. Barr catheter. Reassess renal function. Status: Acute (4) Hypothermia: Bear hugger. Rewarm. Monitor vitals. Status: Acute Plan Possible urinary patient, reviewing descended bladder seen on CT. Place Barr catheter. Dementia, depression, DM2 HTN HLD Lumbar radiculopathy Other chronic problems noted Attestations Medical Necessity Statement*: Place in observation for additional assessment management of altered mental status, encephalopathy possibly secondary to urine tract infection, hypothermia, urine retention. Coding Level of Care Code Acute Bottle House Quality Control Technician for [facility] Diagnoses Altered mental status R41.82 UTI (urinary tract infection) N39.0 DAVID (acute kidney injury) N17.9 Hypothermia T68.XXXA
--- NOTE | 2022-02-13 18:52 | ECG_ITS ---
[facility] Test Date: 2022-02-13 Pat Name: Anat Mark Department: Room: 259 Gender: Female Wound Specialist: : 1945 Requested By: Mir Garcia Order Number: [id number] Reading MD: Jasiel Louis M.D. Measurements Intervals [place] Rate: 68 P: 38 IA: 149 QRS: 103 QRSD: 107 T: 44 QT: 442 QTc: 470 Interpretive Statements SINUS RHYTHM PATTERN CONSISTENT WITH PULMONARY DISEASE POSSIBLE RIGHT VENTRICULAR HYPERTROPHY [SOME/ALL OF: PROMINENT R IN V1, LATE TRANSITION, RAD, TAMMI, SSS] Compared to ECG 02/13/2022 16:05:49 No significant changes Electronically Signed On 02-14-2022 8:39:09 CDT by Jasiel Louis M.D. [id number]
[2022-02-13 19:21] LABS: Troponin 5 6HR 30.25 ng/L (0-10)
[2022-02-13 22:13] LABS: Glucose Point of Care 154 mg/dL (70-110)
[2022-02-13] MEDS: insulin lispro 100 unit/1 mL SUBCUT (22:51)
[2022-02-13] MEDS: sodium chloride 0.45% 1,000 ML 75 ML IV (22:51)
[2022-02-13] MEDS: heparin 5,000 unit/mL INJ 1 mL 5000 UNIT SUBCUT (22:51)
[2022-02-14] VITALS: BP 116/64; PULSE 63; RESP 15; TEMP 36.7; O2SAT 92
[2022-02-14 03:11] LABS: Glucose Point of Care 131 mg/dL (70-110)
[2022-02-14 04:00] VITALS: BP 105/55; PULSE 64; RESP 15; TEMP 36.7; O2SAT 93
[2022-02-14 04:10] LABS: Basophils # 0.1 10^3/uL (0.0-0.1); Basophils % 0.5 %; Eosinophils # 0.2 10^3/uL (0.0-0.8); Eosinophils % 1.4 %; Hematocrit 42.2 % (37.0-47.0); Hemoglobin 13.4 g/dL (11.5-15.3); Lymphocytes # 1.8 10^3/uL (0.8-4.8); Lymphocytes % 15.9 %; Mean Corpuscular HGB Conc 31.8 g/dL (30.0-36.0); Mean Corpuscular Hemoglobin 29.2 pg (28.0-34.0); Mean Corpuscular Volume 91.9 fl (81-99); Mean Platelet Volume 11.3 fL (7.4-10.4); Monocytes # 0.7 10^3/uL (0.2-0.9); Monocytes % 6.1 %; Neutrophils % 75.8 %; Nucleated Red Blood Cells % 0 %; Platelet Count 248 10^3/cmm (130-400); Red Blood Count 4.59 10^6/uL (4.1-5.3); Red Cell Distribution Width 14.8 % (12.1-15.1); White Blood Count 11.1 10^3/uL (4.0-10.0)
[2022-02-14 04:32] LABS: Alanine Aminotransferase 21 U/L (0-33); Albumin Level 3.5 g/dL (3.5-5.2); Alkaline Phosphatase 85 U/L (35-105); Anion Gap 14.7 (5-19); Aspartate Amino Transferase 35 U/L (0-32); Blood Urea Nitrogen 28 mg/dL (8-23); Calcium 9.6 mg/dL (8.5-10.5); Carbon Dioxide 26 mmol/L (22-29); Chloride 101 mmol/L (98-107); Globulin 3.2 g/dL (1.3-4.6); Glucose 142 mg/dL (65-115); Osmolality Calculated 294 mOsm/kg (285-295); Potassium 3.7 mmol/L (3.5-5.1); Sodium 138 mmol/L (136-145); Total Bilirubin 0.7 mg/dL (0.15-1.2); Total Protein 6.7 g/dL (6.6-8.7)
[2022-02-14 07:12] LABS: Glucose Point of Care 125 mg/dL (70-110)
[2022-02-14 08:00] VITALS: BP 121/64; PULSE 60; PULSE 66; RESP 17; TEMP 36.5; O2SAT 94; O2SAT 95
[2022-02-14] MEDS: heparin 5,000 unit/mL INJ 1 mL 5000 UNIT SUBCUT ×2 (08:05→18:56)
--- NOTE | 2022-02-14 08:44 | PC.NURSE ---
Daughter Maite wanted me to call her regarding her mom the patient. She had concern regarding how sedated the pt was at the SNF and that she wasnt eating. I told her that I would have the doctor give her a call when he could. I explained to her that we would encourage pt to eat or we could feed her.
[2022-02-14 11:16] LABS: Glucose Point of Care 140 mg/dL (70-110)
[2022-02-14 12:00] VITALS: BP 91/50; PULSE 61; RESP 18; TEMP 37.2; O2SAT 96
[2022-02-14] MEDS: sodium chloride 0.45% 1,000 ML 75 ML IV (12:37)
--- NOTE | 2022-02-14 13:48 | P.PN_ITS ---
Subjective Subjective: Lethargic this morning, but more responsive, states I am fine when we are trying to wake up, asking her if she is hungry, states yes, will eat later. Vitals/I&O/Wt Last Vital Signs Temp 98.9 F 02/14/22 12:00 Pulse 61 02/14/22 12:00 Resp 18 02/14/22 12:00 BP 91/50 02/14/22 12:00 Pulse Ox 96 02/14/22 12:00 O2 Del Method 02/14/22 12:00 O2 Flow Rate 2 02/14/22 08:00 02/13/22 02/14/22 02/14/22 22:59 06:59 14:59 Intake Total 50 / 50 1000 / 1000 Output Total 1000 / 1000 Balance 50 / 50 -1000 / -950 1000 / 1000 Weight last 48 hrs Weight 77.111 kg Physical Exam Const: GENERAL APPEARANCE: lethargic; not cooperative ORIENTATION/CONSCIOUSNESS: Yes lethargic HENMT: OTHER: Dentures Neck/C-Spine: COMMON NORMALS: no JVD Resp: COMMON NORMALS: normal respiratory effort and clear to auscultation bilaterally AUSCULTATION: clear to auscultation bilaterally Cardio: COMMON NORMALS: no JVD, regular rhythm, S1 normal heart sound present, S2 normal heart sound present and No murmurs present (Cardio) RHYTHM: regular rhythm HEART SOUNDS: S1 normal heart sound present and S2 normal heart sound present GI: COMMON NORMALS: Normal to inspection, nondistended, normoactive bowel sounds present, Soft to palpation and non-tender PALPATION: Yes Soft to palpation Extremity: COMMON NORMALS: no joint enlargement and no pedal edema Neuro: COMMON NORMALS: moves all extremities SENSORIUM/ORIENTATION: Yes le thargic OTHER: Lethargic, withdraws from pain, opens eyes temporarily, falls back asleep. Skin: COMMON NORMALS: no rashes or lesions noted GENERAL SKIN EXAM: no rashes or lesions noted Urinary Catheter Management: Barr: Cath Placed During This Visit: yes Reason for Continuing Indwelling Catheter: Accurate Measurement of Urinary Output in Critically Ill Patients Urinary Catheter Date of Insertion: 02/13/22 Urinary Catheter Time of Insertion: 23:48 Data : 02/14/22 03:00 02/14/22 03:00 Micro: Microbiology 02/13/22 13:27 Blood Culture - Preliminary Blood NEGATIVE TO DATE 02/13/22 13:24 Blood Culture - Preliminary Blood NEGATIVE TO DATE A&P Assessment and plan (1) Altered mental status: She is today more awake, but still lethargic, she is responding, although not really wanting to wake up. Later on in the day noted to be awake. Will obtain bedside swallow evaluation and if does well resume diet. Continue treatment of UTI. She has rewarmed. Maintain Barr catheter for now due to urine retention with distended urinary bladder on presentation. Resume oral medications once tolerating oral intake. Consider holding of risperidone for now due to possible anticholinergic effect with urine retention. Please possibly combination from acute metabolic encephalopathy from urinary tract infection, superimposed on chronic dementia, possibly also contribution from hypothermia. Patient also had urine distended bladder. Status: Acute (2) UTI (urinary tract infection): Started on ceftriaxone, prior culture results with E. coli, more recently Klebsiella, sensitive to ceftriaxone. Continue. Status: Acute (3) DAVID (acute kidney injury): Improving. Gentle fluid challenge. Urine distended bladder on CT. No hydronephrosis. Barr catheter. Reassess renal function. Status: Acute (4) Hypothermia: Has rewarmed. Status: Acute Plan Possible urinary retention on admission, noted distended bladder seen on CT. Barr catheter. Hold risperidone. Consider voiding trial prior to discharge. Dementia, depression, DM2 HTN HLD Lumbar radiculopathy Other chronic problems noted Attestations Medical Necessity Statement*: Continue admission for assessment of management of complicated UTI with acute encephalopathy superimposed on chronic dementia, possible medication adverse effect/anticholinergic effect, with urinary retention. Coding Level of Care Code Acute Predictive Maintenance Specialist for Mariano Alonso Diagnoses Altered mental status R41.82 UTI (urinary tract infection) N39.0 DAVID (acute kidney injury) N17.9 Hypothermia T68.XXXA
[2022-02-14] MEDS: cefTRIAXone 1,000 MG in sodium chloride 0.9% (plus) 50 ML 100 MG IV (14:32)
[2022-02-14 15:55] VITALS: BP 120/75; PULSE 65; RESP 17; O2SAT 97
[2022-02-14 17:07] LABS: Glucose Point of Care 160 mg/dL (70-110)
[2022-02-14] MEDS: insulin lispro 100 unit/1 mL SUBCUT (18:56)
[2022-02-14 20:00] VITALS: BP 125/74; PULSE 70; RESP 18; TEMP 37; O2SAT 96
[2022-02-14 21:56] LABS: Glucose Point of Care 118 mg/dL (70-110)
[2022-02-15] VITALS: BP 142/77; PULSE 61; TEMP 36.6; O2SAT 91
[2022-02-15] MEDS: sodium chloride 0.45% 1,000 ML 75 ML IV (00:19)
[2022-02-15 03:39] LABS: Glucose Point of Care 141 mg/dL (70-110)
[2022-02-15 04:00] VITALS: BP 108/54; PULSE 62; RESP 18; TEMP 37.1; O2SAT 91
[2022-02-15 05:04] LABS: Basophils % 0.5 %; Eosinophils # 0.3 10^3/uL (0.0-0.8); Eosinophils % 3.6 %; Hematocrit 40.2 % (37.0-47.0); Lymphocytes # 1.3 10^3/uL (0.8-4.8); Lymphocytes % 17.4 %; Mean Corpuscular HGB Conc 32.3 g/dL (30.0-36.0); Mean Corpuscular Hemoglobin 29.4 pg (28.0-34.0); Mean Platelet Volume 10.9 fL (7.4-10.4); Monocytes # 0.5 10^3/uL (0.2-0.9); Monocytes % 6.3 %; Neutrophils # 5.33 10^3/uL (1.8-7.7); Neutrophils % 71.9 %; Nucleated Red Blood Cells % 0 %; Platelet Count 211 10^3/cmm (130-400); Red Blood Count 4.42 10^6/uL (4.1-5.3); Red Cell Distribution Width 14.5 % (12.1-15.1); White Blood Count 7.4 10^3/uL (4.0-10.0)
[2022-02-15 05:28] LABS: Alanine Aminotransferase 18 U/L (0-33); Albumin Level 3.2 g/dL (3.5-5.2); Alkaline Phosphatase 74 U/L (35-105); Blood Urea Nitrogen 17 mg/dL (8-23); Calcium 9.1 mg/dL (8.5-10.5); Carbon Dioxide 22 mmol/L (22-29); Chloride 101 mmol/L (98-107); Creatinine Clr Calc Pharmacy 58.2485; Globulin 3.3 g/dL (1.3-4.6); Glucose 140 mg/dL (65-115); Osmolality Calculated 286 mOsm/kg (285-295); Sodium 136 mmol/L (136-145); Total Bilirubin 0.5 mg/dL (0.15-1.2); Total Protein 6.5 g/dL (6.6-8.7)
[2022-02-15 05:29] LABS: Anion Gap 16.8 (5-19); Aspartate Amino Transferase 34 U/L (0-32); Potassium 3.8 mmol/L (3.5-5.1)
[2022-02-15 06:44] LABS: Glucose Point of Care 104 mg/dL (70-110)
[2022-02-15 06:44] LABS: Glucose Point of Care 127 mg/dL (70-110)
[2022-02-15 06:44] LABS: Glucose Point of Care 110 mg/dL (70-110)
[2022-02-15] MEDS: heparin 5,000 unit/mL INJ 1 mL 5000 UNIT SUBCUT (06:48)
[2022-02-15 08:00] VITALS: BP 132/65; PULSE 65; RESP 16; TEMP 36.8; O2SAT 93
[2022-02-15 11:26] LABS: Glucose Point of Care 133 mg/dL (70-110)
--- NOTE | 2022-02-15 11:38 | P.DS_ITS ---
Discharge Providers Date of Admission: 02/14/22 17:33 Date of Discharge: February 15, 2022 Attending Provider at Admission: Jakub Pearson Attending Provider at Discharge: Wilder Barahona MD Primary Care Provider: Law Manzanares MD Diagnoses at Discharge Discharge Diagnosis (1) Altered mental status: Status: Acute (2) UTI (urinary tract infection): Status: Acute (3) DAVID (acute kidney injury): Status: Acute (4) Hypothermia: Status: Acute Reason for Visit Reason for Visit: DEMENTIA/ POSSIBLE SEPSIS Hospital Course Hospital Course 76-year-old lady with dementia, resident of [facility] dementia unit was brought in due to poor responsiveness, not taking medications, noted to have again UTI after recent admission. Started on Rocephin. Did also have hypothermia, and also noted to have urinary retention, possibly from anticholinergic symptoms from risperidone. Symptoms improved in next 12 hours, she was able to communicate, she is pleasantly confused, oriented to herself, no focal deficits noted, she remained afebrile, no leukocytosis, abnormal UA urine culture positive for Klebsiella, previous urine culture was positive for E. coli, will give her Levaquin 7-day course Physical Exam Narrative: Patient is pleasantly confused Oriented to herself Nonfocal neuro exam Awake and alert Following commands S1, S2 Abdomen soft Currently on room air No signs of edema of legs Urinary Catheter Management: Barr: Cath Placed During This Visit: yes Reason for Continuing Indwelling Catheter: Accurate Measurement of Urinary Ou tput in Critically Ill Patients Urinary Catheter Date of Insertion: 02/13/22 Urinary Catheter Time of Insertion: 23:48 Discharge Data Studies Completed and Pending Completed Studies During Hospitalization Category Date Time Status CT abdomen pelvis wo con [id number] Stat Cat Scan 02/13/22 16:[address] head wo con* [id number] Stat Cat Scan 02/13/22 12:52 Completed XR chest 1V portable [id number] Stat Exams 02/13/22 12:52 Completed Pending at discharge Category Date Time Status Blood Culture Stat Lab 02/13/22 13:27 Results Complete Blood Count w/Auto AM LABS Lab 02/16/22 04:00 Ordered Comprehensive Metabolic Panel AM LABS Lab 02/16/22 04:00 Ordered Radiology Impressions Chest X-Ray 02/13/22 12:52 IMPRESSION: No acute findings. Head CT 02/13/22 12:52 IMPRESSION: No acute intracranial abnormality. Abdomen/Pelvis CT 02/13/22 16:46 IMPRESSION: 1. No acute findings. 2. Cholecystectomy. 3. Negative examination of the kidneys no stones. 4. Heavy aortic calcification without aneurysm. 5. Diverticulosis of the sigmoid colon Laboratory Results WBC 7.4 10^3/uL (4.0-10.0) 02/15/22 04:52 RBC 4.42 10^6/uL (4.1-5.3) 02/15/22 04:52 Hgb 13.0 g/dL (11.5-15.3) 02/15/22 04:52 Hct 40.2 % (37.0-47.0) 02/15/22 04:52 MCV 91.0 fl (81-99) 02/15/22 04:52 MCH 29.4 pg (28.0-34.0) 02/15/22 04:52 MCHC 32.3 g/dL (30.0-36.0) 02/15/22 04:52 RDW 14.5 % (12.1-15.1) 02/15/22 04:52 Plt Count 211 10^3/cmm (130-400) 02/15/22 04:52 MPV 10.9 fL (7.4-10.4) H 02/15/22 04:52 Neut % (Auto) 71.9 % 02/15/22 04:52 Lymph % (Auto) 17.4 % 02/15/22 04:52 [place] % (Auto) 6.3 % 02/15/22 04:52 Eos % (Auto) 3.6 % 02/15/22 04:52 Baso % (Auto) 0.5 % 02/15/22 04:52 Neut # (Auto) 5.33 10^3/uL (1.8-7.7) 02/15/22 04:52 Lymph # (Auto) 1.3 10^3/uL (0.8-4.8) 02/15/22 04:52 [place] # (Auto) 0.5 10^3/uL (0.2-0.9) 02/15/22 04:52 Eos # (Auto) 0.3 10^3/uL (0.0-0.8) 02/15/22 04:52 Baso # (Auto) 0.0 10^3/uL (0.0-0.1) 02/15/22 04:52 Nucleated RBC % (auto) 0 % 02/15/22 04:52 Nucleated RBCs # 0.0 /100WBC 02/15/22 04:52 Sodium 136 mmol/L (136-145) 02/15/22 04:52 Potassium 3.8 mmol/L (3.5-5.1) 02/15/22 04:52 Chloride 101 mmol/L (98-107) 02/15/22 04:52 Carbon Dioxide 22 mmol/L (22-29) 02/15/22 04:52 Anion Gap 16.8 (5-19) 02/15/22 04:52 BUN 17 mg/dL (8-23) 02/15/22 04:52 Creatinine 0.7 mg/dL (0.5-0.9) 02/15/22 04:52 GFR Calculation Not Reportable 02/15/22 04:52 Glucose 140 mg/dL (65-115) H 02/15/22 04:52 POC Glucose 133 mg/dL (70-110) H 02/15/22 11:16 Calculated Osmolality 286 mOsm/kg (285-295) 02/15/22 04:52 Lactate 1.8 mmol/L (0.5-2.2) 02/13/22 13:24 Calcium 9.1 mg/dL (8.5-10.5) 02/15/22 04:52 Total Bilirubin 0.5 mg/dL (0.15-1.2) 02/15/22 04:52 AST 34 U/L (0-32) H 02/15/22 04:52 ALT 18 U/L (0-33) 02/15/22 04:52 Alkaline Phosphatase 74 U/L (35-105) 02/15/22 04:52 Troponin T Baseline 37 ng/L (0-10) H 02/13/22 13:24 Troponin T 120 Minute 37.64 ng/L (0-10) H 02/13/22 15:12 Delta Troponin T 0.64 ABS# (0-10) 02/13/22 15:12 Troponin T Hi Sens 6Hr 30.25 ng/L (0-10) H 02/13/22 18:45 Troponin T Hi Sens 6Hr Delta -6.75 ng/L (0-12) L 02/13/22 18:45 Total Protein 6.5 g/dL (6.6-8.7) L 02/15/22 04:52 Albumin 3.2 g/dL (3.5-5.2) L 02/15/22 04:52 Globulin 3.3 g/dL (1.3-4.6) 02/15/22 04:52 Lipase 24 U/L (13-60) 02/13/22 13:24 TSH 1.18 uIU/mL (0.27-4.20) 02/13/22 13:24 Free T4 1.25 ng/dL (0.82-1.77) 02/13/22 13:24 Urine Color Yellow (Yellow) 02/13/22 13:57 Urine Appearance Hazy (CLEAR) A 02/13/22 13:57 Urine pH 5 (5-7) 02/13/22 13:57 Ur Specific [place] 1.020 (1.005-1.030) 02/13/22 13:57 Urine Protein 1+ (Negative) H 02/13/22 13:57 Urine Glucose (UA) Norm (Normal) 02/13/22 13:57 Urine Ketones 1+ (Negative) H 02/13/22 13:57 Urine Blood 2+ (Negative) H 02/13/22 13:57 Urine Nitrate Negative (Negative) 02/13/22 13:57 Urine Bilirubin 1+ (Negative) H 02/13/22 13:57 Urine Urobilinogen 1 mg/dL (Negative) H 02/13/22 13:57 Ur Leukocyte Esterase 2+ (Negative) H 02/13/22 13:57 Urine RBC 15-25 /hpf (0-2) H 02/13/22 13:57 Urine WBC Too numerous to cnt /hpf (0-5) H 02/13/22 13:57 Ur Squamous Epith Cells 15-25 /hpf (0-5) H 02/13/22 13:57 Ur Transition Epith Cell 0-4 /hpf 02/13/22 13:57 Amorphous Sediment Not Reportable 02/13/22 13:57 Urine Bacteria 2+ /hpf (NONE) H 02/13/22 13:57 Salicylates < 0.3 mg/dL (3-10) L 02/13/22 13:24 Acetaminophen < 5.0 ug/mL (10-30) L 02/13/22 13:24 Vitals Last Vital Signs Temp 98.3 F 02/15/22 08:00 Pulse 65 02/15/22 08:00 Resp 16 02/15/22 08:00 BP 132/65 02/15/22 08:00 Pulse Ox 93 02/15/22 08:00 O2 Del Method 02/15/22 08:00 O2 Flow Rate 2 02/14/22 20:00 Discharge Plan Discharge Patient Disposition: Xfer SNF Condition: Stable Prescriptions: New levofloxacin 750 mg tablet 750 mg PO DAILY 7 Days Qty: 7 0RF Continued gabapentin [Neurontin] 300 mg capsule 300 mg PO TID pantoprazole [Protonix] 40 mg tablet,delayed release (DR/EC) 40 mg PO DAILY escitalopram oxalate [Lexapro] 10 mg tablet 20 mg PO DAILY tramadol 50 mg tablet 50 mg PO BID PRN (Reason: Pain) sitagliptin 50 mg tablet 50 mg PO DAILY Qty: 90 0RF amlodipine 10 mg tablet 10 mg PO DAILY Qty: 30 0RF insulin aspart U-100 [Novolog Flexpen U-100 Insulin] 100 unit/mL (3 mL) insulin pen See Rx Instructions .ROUTE .COMPLEX Qty: 15 0RF Rx Instructions: Inject, subcu, 3 times daily, after meals, based on sliding scale provided acetaminophen [Tylenol] 325 mg Tablet 325 mg PO QID PRN (Reason: Pain) Levemir U-100 Insulin 100 unit/mL solution 15 unit SUBCUT BID hydralazine 25 mg Tablet 25 mg PO TID 30 Days Qty: 90 0RF Discontinued risperidone 0.25 mg tablet 0.25 mg PO BID Discharge Orders: Discharge Order (Routine); Ordered 02/15/22 Ordered By: Wilder Barahona Referrals: Law Manzanares MD [Primary Care Provider] - Discharge Diet: Soft Mechanical Discharge Activity: Increase activity as tolerated Patient Instructions: Dysuria (ED), Altered Mental Status (ED) Discharge Attestations Time Spent in Discharge Care*: less than 30 min Status at Discharge: Cognitive status at discharge: severely impaired cognition , Behavioral status at discharge: cooperative , Quality Metrics Clinical Quality Measures [ No reported AMI, CVA or VTE this stay] Coding Level of Care Code Acute Chg FW DC note Diagnoses Altered mental status R41.82 UTI (urinary tract infection) N39.0 DAVID (acute kidney injury) N17.9 Hypothermia T68.XXXA
[2022-02-15 11:46] VITALS: BP 156/75; PULSE 66; RESP 16; TEMP 36.8; O2SAT 93
[2022-02-15 16:00] VITALS: PULSE 70; RESP 16; TEMP 37; O2SAT 94
[2022-02-15 16:38] LABS: Glucose Point of Care 160 mg/dL (70-110)
[2022-02-15 18:21] LABS: SARS Covid-2 Antigen Negative (Negative)
[2022-02-15 19:13] VITALS: PULSE 70; RESP 16; TEMP 37; O2SAT 94
== END 2022-02-15 19:00 | disposition skilled nursing facility (03) | DRG 689 ==
LOC: ER 16:43 → MEDSURG 18:22
PROVIDERS: Admitting Provider Internal Medicine; Emergency Provider Emergency Medicine; PCP Internal Medicine; Visit Provider Internal Medicine
DX: N39.0 Urinary tract infection, site not specified (principal); G93.41 Metabolic encephalopathy; N17.9 Acute kidney failure, unspecified; F03.90 Unspecified dementia, unspecified severity, without behavioral disturbance, psychotic disturbance, mood disturbance, and anxiety; B96.1 Klebsiella pneumoniae [K. pneumoniae] as the cause of diseases classified elsewhere; F32.A Depression, unspecified; E11.9 Type 2 diabetes mellitus without complications; I10 Essential (primary) hypertension; E78.2 Mixed hyperlipidemia; G89.29 Other chronic pain; M54.16 Radiculopathy, lumbar region; R68.0 Hypothermia, not associated with low environmental temperature; R33.9 Retention of urine, unspecified; Z79.4 Long term (current) use of insulin
CPT/HCPCS: 36415; 36416; 51702; 70450; 71045; 74176; 80053; 80307; 81001; 82962; 83605; 83690; 84439; 84443; 84484; 85025; 87040; 87426; 92523; 92610; 93005; 96365; 96372; 99285; G0378; J0696; J1644; J1815

== ENCOUNTER 2022-02-20 14:39 | Inpatient (IN) | payer MEDICARE, MEDICAID, SELFPAY ==
[2022-02-20] VITALS (20 sets, daily range): BP systolic 102–139; BP diastolic 43–70; PULSE 56–64; RESP 13–19; TEMP 36.6–36.7; O2SAT 90–96; BMI 27.6
--- NOTE | 2022-02-20 14:40 | W.ED.AMS ---
HPI - Altered Mental Status General: Chief Complaint: Altered Mental Status Stated Complaint: AMS Time Seen by Provider: 02/20/22 14:40 Limitations: altered mental status History of Present Illness: Ms. Mark is a 76-year-old lady with history of dementia and diabetes presenting to the emergency department due to altered mental status. She is accompanied by her daughter at bedside who provides clinical history as the patient's mental status significantly limits history. Per daughter the last time she saw her normal was 2 days ago. When she checked on her today she was staring at the ceiling and largely unresponsive. She apparently has previously been on various medications including Seroquel however this was supposed to be held and the nursing staff was unsure if it was or it had been given. Apparently per report from [facility] last definitively known well was 7:30 AM Review of Systems General: Reports: ROS unobtainable due to mental status PFSH ED PFSH: Medical History DAVID (acute kidney injury) Altered mental status Altered mental status Arthritis Dehydration, mild Depression Diabetes Diabetes mellitus Diabetes type 2, uncontrolled Dysthymia HTN (hypertension) with goal to be determined Hypothermia Left acute arterial ischemic stroke, MCA (middle cerebral artery) Mixed hyperlipidemia Other chronic pain Other fatigue Radiculopathy, lumbar region Stroke UTI (urinary tract infection) UTI (urinary tract infection) Vitamin D deficiency, unspecified Surgical History History of cholecystectomy Family History Other Cancer Hypertension Myocardial infarct Social History Smoking and tobacco status: former smoker Alcohol intake: never Physical Exam Const: GENERAL APPEARANCE: well developed HENMT: COMMON NORMALS: normocephalic and atraumatic HEAD & SCALP: normocephalic and atraumatic Eye: COMMON NORMALS: conjunctivae normal CONJUNCTIVA: Yes conjunctivae normal SCLERA: sclerae normal Neck/C-Spine: COMMON NORMALS: supple GENERAL: Yes trachea midline Resp: COMMON NORMALS: normal respiratory effort and clear to auscultation bilaterally AUSCULTATION: clear to auscultation bilaterally Cardio: COMMON NORMALS: regular rate and regular rhythm RATE: regular rate RHYTHM: regular rhythm GI: COMMON NORMALS: Soft to palpation PALPATION: Yes Soft to palpation and No Tenderness to palpation present (GI) Extremity: GENERAL: Yes normal exam except as noted and No edema Neuro: SENSORIUM/ORIENTATION: Yes somnolent OTHER: Patient does not respond to voice however does resist effort to open eyes manually. There is no evidence of muscle rigidity or obvious seizure-like activity. No clonus. She does spontaneously move right upper extremity. Course Vital Signs: Vital signs: Vital Signs Temperature 98.0 F 02/22/22 15:44 Pulse Rate 59 L 02/22/22 15:44 Respiratory Rate 18 02/22/22 15:44 Blood Pressure 164/65 02/22/22 15:44 Pulse Oximetry 98 02/22/22 15:44 Oxygen Delivery Me thod 02/22/22 11:36 MDM - Altered Mental Status Medical Decision Making 76-year-old lady presenting with altered mental status. Exam is abnormal for neurologic function however patient is outside of tPA window. EKG shows sinus rhythm with no STEMI. Hematologic panel unremarkable. ABG with mild hypoxemia though overall compensated. Metabolic panel without acute derangement to explain symptoms. Delta troponin negative. No evidence of UTI. Chest x-ray with no lobar consolidation or pneumothorax. CT head without hemorrhage or mass, there appears to be an area of acute is acute infarct. No LVO amenable to endovascular retrieval on CTA. Admitted for further management of stroke. Medical Records I reviewed the patient's medical records. Lab Data I reviewed the patient's lab results. : 02/21/22 04:30 02/21/22 04:30 Radiology Impressions Chest X-Ray 02/20/22 14:58 IMPRESSION: No acute findings. Head CT 02/20/22 14:58 IMPRESSION: 1. Ill-defined area of hypoattenuation within the left parietal temporal lobe may reflect an acute/subacute infarct and is new/more conspicuous from most recent comparison. This can be further evaluated with MRI as clinically indicated. 2. Moderate diffuse cerebral atrophy and sequela of chronic small vessel ischemic disease. Head/Neck CTA 02/20/22 16:12 IMPRESSION: 1. Severe segmental stenosis in an anterior M2 segment of the left middle cerebral artery. 2. Severe stenosis in the proximal intracranial right internal carotid artery. 3. 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 4. Findings consistent with a left MCA territory infarct. This demonstrates minimal progression/evolution since 02/13/2022. IMPRESSION: 1. Calcified plaque in the proximal right internal carotid artery with focal 70% stenosis. 2. Calcified plaque in the left internal carotid artery with 35% stenosis. 3. Calcified left thyroid nodules measuring up to 2.2 cm. Ultrasound follow-up is recommended. 4. Prominent superior mediastinal lymph nodes. These may be reactive but neoplastic disease is not excluded. COMMENTS: Consistent with the [employer]'s Incidental Findings Committee white paper (J Am Hector Radiol 2015): In patients aged 35 years and older with an incidental thyroid nodule equal to or greater than 1.[address], MRI or extrathyroidal US, further evaluation with dedicated thyroid US is recommended for patients with normal life expectancy and without comorbidities. For smaller nodules without suspicious features, no further evaluation or follow up is recommended. REFERENCES: NASCET CRITERIA. The degree of stenosis in the cervical segment of the internal carotid artery is based on NASCET criteria. Normal is no stenosis. Mild is less than 50% stenosis. Moderate is 50-69% stenosis. Severe is 70% to 99% stenosis. Total occlusion is no detectable patent lumen. ADDENDUM: 02/20/221825 Findings were discussed with Sotero Kay at 02/20/2022 6:23 PM CDT. The findings of the left MCA territory infarct appear more conspicuous than on 02/13/2022. Laboratory Results WBC 8.7 10^3/uL (4.0-10.0) 02/20/22 15:21 RBC 4.28 10^6/uL (4.1-5.3) 02/20/22 15:21 Hgb 12.6 g/dL (11.5-15.3) 02/20/22 15:21 Hct 39.0 % (37.0-47.0) 02/20/22 15:21 MCV 91.1 fl (81-99) 02/20/22 15:21 MCH 29.4 pg (28.0-34.0) 02/20/22 15:21 MCHC 32.3 g/dL (30.0-36.0) 02/20/22 15:21 RDW 15.0 % (12.1-15.1) 02/20/22 15:21 Plt Count 257 10^3/cmm (130-400) 02/20/22 15:21 MPV 10.4 fL (7.4-10.4) 02/20/22 15:21 Neut % (Auto) 70.0 % 02/20/22 15:21 Lymph % (Auto) 16.9 % 02/20/22 15:21 [place] % (Auto) 7.2 % 02/20/22 15:21 Eos % (Auto) 4.8 % 02/20/22 15:21 Baso % (Auto) 0.6 % 02/20/22 15:21 Neut # (Auto) 6.09 10^3/uL (1.8-7.7) 02/20/22 15:21 Lymph # (Auto) 1.5 10^3/uL (0.8-4.8) 02/20/22 15:21 [place] # (Auto) 0.6 10^3/uL (0.2-0.9) 02/20/22 15:21 Eos # (Auto) 0.4 10^3/uL (0.0-0.8) 02/20/22 15:21 Baso # (Auto) 0.1 10^3/uL (0.0-0.1) 02/20/22 15:21 Nucleated RBC % (auto) 0 % 02/20/22 15:21 Nucleated RBCs # 0.0 /100WBC 02/20/22 15:21 Specimen Type Arterial 02/20/22 15:05 Sample Site Radial, left 02/20/22 15:05 ABG pH 7.41 (7.35-7.45) 02/20/22 15:05 ABG pCO2 38.8 mmHg (35-45) 02/20/22 15:05 ABG pO2 64.2 mmHg (80.0-100.0) L 02/20/22 15:05 ABG HCO3 24.3 mmol/L (22-26) 02/20/22 15:05 ABG Base Excess -0.3 mmol/L (-2.0-2.0) 02/20/22 15:05 Iban Test Pos 02/20/22 15:05 Hematocrit 40.3 % (37-47) 02/20/22 15:05 O2 Delivery Device Room air 02/20/22 15:05 Solid Waste Disposal Manager ID Dhaval 02/20/22 15:05 Sodium 141 mmol/L (136-145) 02/20/22 15:21 Potassium 3.4 mmol/L (3.5-5.1) L 02/20/22 15:21 Chloride 105 mmol/L (98-107) 02/20/22 15:21 Carbon Dioxide 25 mmol/L (22-29) 02/20/22 15:21 Anion Gap 14.4 (5-19) 02/20/22 15:21 BUN 12 mg/dL (8-23) 02/20/22 15:21 Creatinine 0.8 mg/dL (0.5-0.9) 02/20/22 15:21 GFR Calculation Not Reportable 02/20/22 15:21 Glucose 136 mg/dL (65-115) H 02/20/22 15:21 POC Glucose 138 mg/dL (70-110) H 02/20/22 15:16 Calculated Osmolality 294 mOsm/kg (285-295) 02/20/22 15:21 Calcium 9.2 mg/dL (8.5-10.5) 02/20/22 15:21 Total Bilirubin 0.4 mg/dL (0.15-1.2) 02/20/22 15:21 AST 21 U/L (0-32) 02/20/22 15:21 ALT 17 U/L (0-33) 02/20/22 15:21 Alkaline Phosphatase 71 U/L (35-105) 02/20/22 15:21 Troponin T Baseline 20 ng/L (0-10) H 02/20/22 15:21 Troponin T 120 Minute 22.83 ng/L (0-10) H 02/20/22 17:24 Delta Troponin T 2.83 ABS# (0-10) 02/20/22 17:24 C-Reactive Protein 16.7 mg/L (0.0-4.9) H 02/20/22 15:21 NT-Pro-B Natriuret Pep 339 pg/mL (0-450) 02/20/22 15:21 Total Protein 6.5 g/dL (6.6-8.7) L 02/20/22 15:21 Albumin 3.6 g/dL (3.5-5.2) 02/20/22 15:21 Globulin 2.9 g/dL (1.3-4.6) 02/20/22 15:21 Procalcitonin 0.11 ng/mL (0-0.5) 02/20/22 15:21 TSH 1.23 uIU/mL (0.27-4.20) 02/20/22 17:24 Urine Color Yellow (Yellow) 02/20/22 17:13 Urine Appearance Cloudy (CLEAR) 02/20/22 17:13 Urine pH 5 (5-7) 02/20/22 17:13 Ur Specific [place] 1.015 (1.005-1.030) 02/20/22 17:13 Urine Protein Neg (Negative) 02/20/22 17:13 Urine Glucose (UA) Norm (Normal) 02/20/22 17:13 Urine Ketones Negative (Negative) 02/20/22 17:13 Urine Blood Neg (Negative) 02/20/22 17:13 Urine Nitrate Negative (Negative) 02/20/22 17:13 Urine Bilirubin Neg (Negative) 02/20/22 17:13 Urine Urobilinogen Neg mg/dL (Negative) 02/20/22 17:13 Ur Leukocyte Esterase 2+ (Negative) H 02/20/22 17:13 Urine RBC None /hpf (0-2) 02/20/22 17:13 Urine WBC 0-4 /hpf (0-5) H 02/20/22 17:13 Ur Squamous Epith Cells 0-4 /hpf (0-5) H 02/20/22 17:13 Amorphous Sediment Not Reportable 02/20/22 17:13 Urine Bacteria None /hpf (NONE) 02/20/22 17:13 Urine Mucus 1+ /hpf 02/20/22 17:13 Salicylates < 0.3 mg/dL (3-10) L 02/20/22 15:21 Urine Opiates Screen Positive ng/mL (Negative) H 02/20/22 17:13 Acetaminophen < 5.0 ug/mL (10-30) L 02/20/22 15:21 Ur Barbiturates Screen Negative ng/mL (Negative) 02/20/22 17:13 Ur Phencyclidine Scrn Negative ng/mL (Negative) 02/20/22 17:13 Ur Amphetamines Screen Negative ng/mL (Negative) 02/20/22 17:13 U Benzodiazepines Scrn Negative ng/mL (Negative) 02/20/22 17:13 Urine Cocaine Screen Negative ng/mL (Negative) 02/20/22 17:13 U Marijuana (THC) Screen Negative ng/mL (Negative) 02/20/22 17:13 Ethyl Alcohol < 10 mg/dL (0-10) 02/20/22 15:21 Discharge Plan Discharge Patient Disposition: Admitted As Inpatient Admit Provider: Roly Larson Clinical Impression: Altered mental status, Stroke Condition: Stable Discharge Diet: As Directed Coding Level of Care Code ED Tensile Tester for Chg Fwd Exam Comprehensive
--- NOTE | 2022-02-20 14:55 | PC.NURSE ---
pts daughter reports pt lives in the [place]way and daughter requested pt be taken of seroquel. reports she missed 2 days of going to visit her and today went to visit and noticed her to just be staring and more lethargic than her baseline. unsure if pt was given seroquel. pt was brought in by EMS. pt is lethargic, laying in bed with eyes closed. takes a deep breath with nail bed pressure but does not withdraw to pain. unable to follow commands. skin is pink/warm/dry. pupils equal and reactive to light. lung sounds clear bilat. bowel sounds present. abdomen soft. pt has indwelling fowler with clear yellow urine.
--- NOTE | 2022-02-20 14:58 | XRR_ITS ---
PROCEDURE INFORMATION: Exam: XR Chest Exam date and time: 02/20/2022 3:04 PM Age: 76 years old Clinical indication: Other: AMS TECHNIQUE: Imaging protocol: Radiologic exam of the chest. Views: 1 view. COMPARISON: CR (CHEST, ) 02/13/2022 1:03 PM FINDINGS: Lungs: Unremarkable. No consolidation. Pleural spaces: Unremarkable. No pleural effusion. No pneumothorax. Heart/Mediastinum: Unremarkable. No cardiomegaly. Diaphragm: Similar mild elevation of the right hemidiaphragm. Bones/joints: Unremarkable. XR/XR chest 1V portable [id number] IMPRESSION: No acute findings.
--- NOTE | 2022-02-20 14:58 | CTR_ITS ---
PROCEDURE INFORMATION: Exam: CT Head Without Contrast Exam date and time: 02/20/2022 3:29 PM Age: 76 years old Clinical indication: Altered mental status/memory loss; Additional info: AMS TECHNIQUE: Imaging protocol: Computed tomography of the head without contrast. Radiation optimization: All CT scans at this facility use at least one of these dose optimization techniques: automated exposure control; mA and/or kV adjustment per patient size (includes targeted exams where dose is matched to clinical indication); or iterative reconstruction. COMPARISON: CT head wo con* [id number] 02/13/2022 12:59 PM RADIATION DOSE METRICS: Total DLP (mGy-cm): 1050.98 FINDINGS: Brain: No hemorrhage. Ill-defined area of hypoattenuation within the left parietal temporal lobe may reflect an acute/subacute infarct and is new/more conspicuous from most recent comparison. Moderate diffuse cerebral atrophy and sequela of chronic small vessel ischemic disease. No mass effect. Cerebral ventricles: No ventriculomegaly. Paranasal sinuses: Visualized sinuses are unremarkable. No fluid levels. Mastoid air cells: Visualized mastoid air cells are well aerated. Bones/joints: Unremarkable. No acute fracture. Soft tissues: Unremarkable. CT/CT head wo con* [id number] IMPRESSION: 1. Ill-defined area of hypoattenuation within the left parietal temporal lobe may reflect an acute/subacute infarct and is new/more conspicuous from most recent comparison. This can be further evaluated with MRI as clinically indicated. 2. Moderate diffuse cerebral atrophy and sequela of chronic small vessel ischemic disease.
--- NOTE | 2022-02-20 15:05 | ECG_ITS ---
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 Measurements Intervals [place] Rate: 62 P: 28 UT: 135 QRS: 58 QRSD: 96 T: 33 QT: 426 QTc: 433 Interpretive Statements SINUS RHYTHM Compared to ECG 02/13/2022 21:21:49 Atrial abnormality no longer present Electronically Signed On 02-20-2022 18:13:04 CDT by Mica Hairston M.D. [email or web address] medical [id number]
[2022-02-20 15:15] LABS: ABG PCO2 38.8 mmHg (35-45); ABG PH Result 7.41 (7.35-7.45); Arterial Blood Gas Hematocrit 40.3 % (37-47); Base Excess ABG -0.3 mmol/L (-2.0-2.0); Blood Gas Allen Test Pos; Blood Gas Sample Site Radial, left; Blood Gas Sample Type Arterial; HCO3 ABG 24.3 mmol/L (22-26); Oxygen Device ROOM AIR; PO2 ABG 64.2 mmHg (80.0-100.0)
[2022-02-20 15:20] LABS: Glucose Point of Care 138 mg/dL (70-110)
[2022-02-20 15:31] LABS: Basophils # 0.1 10^3/uL (0.0-0.1); Basophils % 0.6 %; Eosinophils # 0.4 10^3/uL (0.0-0.8); Eosinophils % 4.8 %; Hemoglobin 12.6 g/dL (11.5-15.3); Lymphocytes # 1.5 10^3/uL (0.8-4.8); Lymphocytes % 16.9 %; Mean Corpuscular HGB Conc 32.3 g/dL (30.0-36.0); Mean Corpuscular Hemoglobin 29.4 pg (28.0-34.0); Mean Corpuscular Volume 91.1 fl (81-99); Mean Platelet Volume 10.4 fL (7.4-10.4); Monocytes # 0.6 10^3/uL (0.2-0.9); Monocytes % 7.2 %; Neutrophils # 6.09 10^3/uL (1.8-7.7); Nucleated Red Blood Cells % 0 %; Platelet Count 257 10^3/cmm (130-400); Red Blood Count 4.28 10^6/uL (4.1-5.3); White Blood Count 8.7 10^3/uL (4.0-10.0)
--- NOTE | 2022-02-20 15:45 | PC.NURSE ---
pt oxygen 88% on room air, placed on 2L/NC. while placing oxygen on pt, pt squeezed eyes closed.
[2022-02-20 16:01] LABS: Troponin(5th) Baseline 20 ng/L (0-10)
--- NOTE | 2022-02-20 16:12 | CTR_ITS ---
PROCEDURE INFORMATION: Exam: CTA Head With Contrast, Arteriography Exam date and time: 02/20/2022 4:43 PM Age: 76 years old Clinical indication: Other: AMS TECHNIQUE: Imaging protocol: Computed tomographic angiography of the head with contrast. Exam focused on the arteries. 3D rendering (Not supervised by radiologist): MIP and/or 3D reconstructed images were created by the technologist. Radiation optimization: All CT scans at this facility use at least one of these dose optimization techniques: automated exposure control; mA and/or kV adjustment per patient size (includes targeted exams where dose is matched to clinical indication); or iterative reconstruction. Contrast material: OMNI 350; Contrast volume: 95 ml; Contrast route: INTRAVENOUS (IV); COMPARISON: CT head wo con* [id number] 02/20/2022 3:29 PM RADIATION DOSE METRICS: Total DLP (mGy-cm): 913.92 FINDINGS: ANTERIOR CIRCULATION: Right internal carotid artery: Calcified plaque with severe stenosis in the proximal intracranial portion of the right internal carotid artery. Right middle cerebral artery: No occlusion or significant stenosis. No aneurysm. Right anterior cerebral artery: Congenitally small A1 segment of the right anterior cerebral artery with severe proximal stenosis. The anterior communicating artery branch appears patent. Left internal carotid artery: Intracranial segment is patent with no significant stenosis. No aneurysm. Left middle cerebral artery: Severe segmental stenosis within an M2 segment of a left MCA artery branch (series 9 images 224-225. Left anterior cerebral artery: No occlusion or significant stenosis. No aneurysm. POSTERIOR CIRCULATION: Right vertebral artery: No occlusion or significant stenosis. No aneurysm. Left vertebral artery: No occlusion or significant stenosis. No aneurysm. Basilar artery: No occlusion or significant stenosis. No aneurysm. Right posterior cerebral artery: No occlusion or significant stenosis. No aneurysm. Left posterior cerebral artery: No occlusion or significant stenosis. No aneurysm. Brain: Stable patchy hypodensities in the cortex and subcortical white matter of the left temporal, parietal, and superior occipital lobes. Cerebral ventricles: No ventriculomegaly. Bones/joints: Unremarkable. No acute fracture. Soft tissues: Unremarkable. PROCEDURE INFORMATION: Exam: CTA Neck With Contrast Exam date and time: 02/20/2022 4:43 PM Age: 76 years old Clinical indication: Other: AMS TECHNIQUE: Imaging protocol: Computed tomographic angiography of the neck with contrast. 3D rendering (Not supervised by radiologist): MIP and/or 3D reconstructed images were created by the technologist. Radiation optimization: All CT scans at this facility use at least one of these dose optimization techniques: automated exposure control; mA and/or kV adjustment per patient size (includes targeted exams where dose is matched to clinical indication); or iterative reconstruction. Contrast material: OMNI 350; Contrast volume: 95 ml; Contrast route: INTRAVENOUS (IV); COMPARISON: CT head wo con* [id number] 02/20/2022 3:29 PM RADIATION DOSE METRICS: Total DLP (mGy-cm): 913.92 FINDINGS: Right common carotid artery: No stenosis. No dissection or occlusion. Right internal carotid artery: Calcified plaque in the proximal right internal carotid artery with focal 70% stenosis using NASCET criteria. The artery is smaller in caliber than the left distal to the stenosis. Right external carotid artery: No occlusion or stenosis of the origin. Left common carotid artery: Calcified plaque in the left common carotid artery without stenosis. Left internal carotid artery: Calcified plaque in the proximal left internal carotid artery with 35% stenosis using NASCET criteria. Left external carotid artery: No occlusion or stenosis of the origin. Right vertebral artery: No stenosis. No dissection or occlusion. Left vertebral artery: No stenosis. No dissection or occlusion. Right subclavian artery: Calcified plaque with mild stenosis in the proximal right subclavian artery. Left subclavian artery: Calcified plaque with mild stenosis in the proximal left subclavian artery. Thyroid: Multiple calcified and noncalcified left thyroid nodules, the largest estimated at 2.2 cm. Lymph nodes: Multiple prominent superior mediastinal lymph nodes, the largest measuring 1.2 cm short axis. Soft tissues: Normal. No significant soft tissue swelling. Bones/joints: No acute fracture. Lungs: Dependent atelectasis in the right lung. CT/CT angio headneck* [id number] IMPRESSION: 1. Severe segmental stenosis in an anterior M2 segment of the left middle cerebral artery. 2. Severe stenosis in the proximal intracranial right internal carotid artery. 3. 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 4. Findings consistent with a left MCA territory infarct. This demonstrates minimal progression/evolution since 02/13/2022. IMPRESSION: 1. Calcified plaque in the proximal right internal carotid artery with focal 70% stenosis. 2. Calcified plaque in the left internal carotid artery with 35% stenosis. 3. Calcified left thyroid nodules measuring up to 2.2 cm. Ultrasound follow-up is recommended. 4. Prominent superior mediastinal lymph nodes. These may be reactive but neoplastic disease is not excluded. COMMENTS: Consistent with the [employer]'s Incidental Findings Committee white paper (J Am Hector Radiol 2015): In patients aged 35 years and older with an incidental thyroid nodule equal to or greater than 1.[address], MRI or extrathyroidal US, further evaluation with dedicated thyroid US is recommended for patients with normal life expectancy and without comorbidities. For smaller nodules without suspicious features, no further evaluation or follow up is recommended. REFERENCES: NASCET CRITERIA. The degree of stenosis in the cervical segment of the internal carotid artery is based on NASCET criteria. Normal is no stenosis. Mild is less than 50% stenosis. Moderate is 50-69% stenosis. Severe is 70% to 99% stenosis. Total occlusion is no detectable patent lumen.
[2022-02-20 16:31] LABS: Acetaminophen < 5.0 ug/mL (10-30); Alanine Aminotransferase 17 U/L (0-33); Albumin Level 3.6 g/dL (3.5-5.2); Alcohol Level < 10 mg/dL (0-10); Alkaline Phosphatase 71 U/L (35-105); Anion Gap 14.4 (5-19); Aspartate Amino Transferase 21 U/L (0-32); Blood Urea Nitrogen 12 mg/dL (8-23); C Reactive Protein 16.7 mg/L (0.0-4.9); Calcium 9.2 mg/dL (8.5-10.5); Carbon Dioxide 25 mmol/L (22-29); Chloride 105 mmol/L (98-107); Globulin 2.9 g/dL (1.3-4.6); Glucose 136 mg/dL (65-115); Osmolality Calculated 294 mOsm/kg (285-295); Potassium 3.4 mmol/L (3.5-5.1); Salicylate < 0.3 mg/dL (3-10); Sodium 141 mmol/L (136-145); Total Bilirubin 0.4 mg/dL (0.15-1.2); Total Protein 6.5 g/dL (6.6-8.7)
[2022-02-20] MEDS: naloxone 0.4 mg/ml SDV IVP ×2 (16:35→19:10)
--- NOTE | 2022-02-20 16:40 | PC.NURSE ---
No change in mental status after narcan at this time. Pt taken to CT
[2022-02-20] MEDS: iohexol 350 mg/mL 100 mL Btl IV (16:58)
[2022-02-20 17:00] LABS: NT Pro B Type Natriuretic Pept 339 pg/mL (0-450); Procalcitonin 0.11 ng/mL (0-0.5); Thyroid Stimulating Hormone 1.36 uIU/mL (0.27-4.20)
--- NOTE | 2022-02-20 17:30 | ECG_ITS ---
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 Measurements Intervals [place] Rate: 60 P: 24 [place]: 139 QRS: 43 QRSD: 98 T: 36 QT: 439 QTc: 441 Interpretive Statements SINUS RHYTHM WITH OCCASIONAL SUPRAVENTRICULAR PREMATURE COMPLEXES Compared to ECG 02/20/2022 15:05:24 No significant changes Electronically Signed On 02-20-2022 18:19:48 CDT by Mica Hairston M.D. [id number]
[2022-02-20 17:42] LABS: Add Urine Microscopic? YES; Amphetamines Screen Urine Negative (Negative); Barbiturates Screen Urine Negative (Negative); Benzodiazepines Screen Urine Negative (Negative); Bilirubin Urine Neg (Negative); Blood Urine Neg (Negative); Cocaine Screen Urine Negative (Negative); Glucose Urine UA Norm (Normal); Ketones Urine Negative (Negative); Leukocyte Esterase Urine 2+ (Negative); Nitrate Urine Negative (Negative); Opiate Screen Urine Positive (Negative); PCP Screen Urine Negative (Negative); Protein Urine Neg (Negative); Specific Gravity, Urine 1.015 (1.005-1.030); THC Screen Urine Negative (Negative); Urine Appearance Cloudy (CLEAR); Urine Color Yellow (Yellow); Urobilinogen Urine Neg (Negative); pH Urine 5 (5-7)
[2022-02-20 17:43] LABS: Add Urine Culture? No; Mucus Urine 1+ /hpf; Squamous Epithelial Cell Urine 0-4 /hpf (0-5); WBC Urine 0-4 /hpf (0-5)
[2022-02-20 17:57] LABS: Troponin 5 2HR 22.83 ng/L (0-10)
[2022-02-20 18:05] LABS: Troponin 5 2HR Delta 2.83 ABS# (0-10)
--- NOTE | 2022-02-20 18:58 | PC.NURSE ---
report given to NAHID García
[2022-02-20] MEDS: sodium chloride 0.9% 1,000 ML 999 ML IV (19:10)
--- NOTE | 2022-02-20 20:19 | P.HP_ITS ---
Providers/Chief Complaint Admitting Physician: Roly Larson MD Primary Care Provider: Law Manzanares MD Chief Complaint: AMS History of Present Illness Anat Mark is a 76 year old female with a past medical history of dementia, insulin-dependent type 2 diabetes mellitus, hypertension, hyperlipidemia, depression, history of UTIs, recent history of hospitalization for decreased responsiveness. Who presents to [facility] due to concerns for decreased responsiveness. I spoke to retirement, who advised that patient is normally alert and oriented x3, normally can ambulate, can feed herself, her mentation has been fluctuating recently, there is been issues with her Risperdal and Seroquel. Patient's daughter does not want the to be given, but according to retirement she has had episodes of confusion agitation. But today she has decreased responsiveness so they sent her to [facility] for evaluation. Currently patient is not alert oriented x3, she is awake, blood pressure 123/52, pulse 58, respiratory 17, temperature 90.1, O2 sat 93% on room air, patient's daughter is at bedside. Patient's daughter tells me that she has been concerned as a retirement has been overmedicating her with Risperdal, Seroquel, she understands that her mother has dementia. But she feels that she has been overmedicated, and she had received Seroquel and risperidone at some point. But was discontinued on 13 February. I went over patient's CT scan w ith the daughter present, it looks like she has had a left MCA stroke, according to ER physician, this was also present on her CT scan done on the . According to daughter she has been walking since the at the retirement. But she was unable to see her since the . Review of Systems General: Reports: ROS unobtainable due to mental status Medications/Allergies Home Medications Medication Instructions Recorded Confirmed Last Taken Type amlodipine 10 mg tablet 10 mg PO DAILY #30 tabs 09/23/20 02/13/22 02/04/22 Rx escitalopram oxalate 10 mg tablet 20 mg PO DAILY 12/02/20 02/13/22 02/04/22 History (Lexapro) tramadol 50 mg tablet 50 mg PO BID PRN Pain 12/02/20 02/13/22 02/04/22 History gabapentin 300 mg capsule 300 mg PO TID 04/27/21 02/13/22 02/04/22 History (Neurontin) pantoprazole 40 mg tablet,delayed 40 mg PO DAILY 04/27/21 02/13/22 02/04/22 History release (Protonix) insulin aspart U-100 100 unit/mL See Rx Instructions .Route 08/25/21 02/13/22 02/04/22 Rx (3 mL) subcutaneous pen (Novolog .COMPLEX #15 mL Flexpen U-100 Insulin aspart) sitagliptin 50 mg tablet 50 mg PO DAILY #90 tabs 09/29/21 02/13/22 02/04/22 Rx acetaminophen 325 mg tablet 325 mg PO QID PRN Pain 02/04/22 02/13/22 Unknown History (Tylenol) insulin detemir U-100 100 unit/mL 15 unit SUBCUT BID 02/04/22 02/13/22 02/04/22 History subcutaneous solution (Levemir U-100 Insulin) hydralazine 25 mg tablet 25 mg PO TID 30 days #90 tabs 02/08/22 02/13/22 Unknown Rx levofloxacin 750 mg tablet 750 mg PO DAILY 7 days #7 tabs 02/15/22 Unknown Rx Allergies Allergy/AdvReac Type Severity Reaction Status Date / Time No Known Allergies Allergy Verified 02/05/22 09:51 PFSH Acute PFSH: Medical History DAVID (acute kidney injury) Altered mental status Arthritis Depression Diabetes Diabetes type 2, uncontrolled Dysthymia HTN (hypertension) with goal to be determined Hypothermia Mixed hyperlipidemia Other chronic pain Other fatigue Radiculopathy, lumbar region UTI (urinary tract infection) Vitamin D deficiency, unspecified Surgical History History of cholecystectomy Family History Other Cancer Hypertension Myocardial infarct Social History Smoking and tobacco status: never smoked Alcohol intake: never Vitals/I&O/Wt Last Vital Signs Temp 98.1 F 02/20/22 14:45 Pulse 58 L 02/20/22 20:14 Resp 17 02/20/22 20:14 BP 123/52 02/20/22 20:14 Pulse Ox 93 02/20/22 20:14 O2 Del Method 02/20/22 19:10 02/20/22 02/20/22 02/20/22 06:59 14:59 22:59 Intake Total 1000 / 1000 Balance 1000 / 1000 Weight last 48 hrs Weight 75.296 kg Physical Exam Const: COMMON NORMALS: no acute distress EXAM LIMITATIONS: altered mental status ORIENTATION/CONSCIOUSNESS: Yes awake; not oriented to person, not oriented to place and not oriented to time HENMT: COMMON NORMALS: normocephalic HEAD & SCALP: normocephalic Resp: COMMON NORMALS: normal respiratory effort, No retractions, No use of accessory muscles and clear to auscultation bilaterally AUSCULTATION: clear to auscultation bilaterally Cardio: COMMON NORMALS: regular rate, regular rhythm, S1 normal heart sound present and S2 normal heart sound present RATE: regular rate RHYTHM: regular rhythm HEART SOUNDS: S1 normal heart sound present and S2 normal heart sound present GI: COMMON NORMALS: Normal to inspection, nondistended, normoactive bowel sounds present, Soft to palpation, non-tender and No hepatosplenomegaly present Extremity: COMMON NORMALS: no pedal edema Neuro: OTHER: No facial droop noted, pupils equal round reactive to light, bilateral upper and lower extremities, fall to bed against gravity, patient has global depression, encephalopathic, neurologic testing is difficult Data : 02/20/22 15:21 02/20/22 15:21 Micro: Microbiology 02/20/22 15:51 Blood Culture - Preliminary Blood SPECIMEN COLLECTED 02/20/22 15:45 Blood Culture - Preliminary Blood SPECIMEN COLLECTED A&P Assessment and plan (1) Left acute arterial ischemic stroke, MCA (middle cerebral artery): (2) Altered mental status: (3) Diabetes mellitus: (4) UTI (urinary tract infection): Plan Acute encephalopathy 1. Ill-defined area of hypoattenuation within the left parietal temporal lobe may reflect an acute/subacute infarct and is new/more conspicuous from most recent comparison. This can be further evaluated with MRI as clinically indicated. 2. Moderate diffuse cerebral atrophy and sequela of chronic small vessel ischemic disease. CT/CT angio headneck* [id number] IMPRESSION: 1. Severe segmental stenosis in an anterior M2 segment of the left middle cerebral artery. 2. Severe stenosis in the proximal intracranial right internal carotid artery. 3. Congenitally small A1 segment of the right anterior cerebral artery with severe proximal stenosis.? 4. Findings consistent with a left MCA territory infarct.? This demonstrates minimal progression/evolution since 02/13/2022. ? IMPRESSION: 1. Calcified plaque in the proximal right internal carotid artery with focal 70% stenosis. 2. Calcified plaque in the left internal carotid artery with 35% stenosis. 3. Calcified left thyroid nodules measuring up to 2.2 cm. Ultrasound follow-up is recommended. 4. Prominent superior mediastinal lymph nodes. These may be reactive but neoplastic disease is not excluded. -Currently patient has global symptomatology, neurologic testing difficult -Concern is is that is just due to evolution of stroke on the and now she is having delirium -Or has she had potentially a brainstem infarct or new infarct is not seen on current CAT scan -NIH stroke scale testing is difficult due to global depression of symptoms, and last known well normal is unknown -No evidence of UTI, but she does have a chronic Barr catheter in place -No significant pneumonia -No significant electrolyte abnormalities Plan -Admit to general medical floors -Neurochecks, NIH stroke scale, aspiration precautions, monitor mentation -Keep n.p.o., IV fluids -Speech therapy eval, PT OT -Rectal aspirin, atorvastatin -Monitor blood pressure closely -We will consider MRI based on clinical progress -We will do a trial of Rocephin for potentially UTI with chronic Barr -Hold all psychotropic medications, avoid psychotropic medications -Hold Risperdal, hold Seroquel -Full code -Lovenox for DVT prophylaxis Attestations Medical Necessity Statement*: Patient requires hospitalization, inpatient, greater than 2 midnights, for left MCA stroke Coding Level of Care Code 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
[2022-02-20 21:21] LABS: Thyroid Stimulating Hormone 1.23 uIU/mL (0.27-4.20)
--- NOTE | 2022-02-20 21:24 | ECG_ITS ---
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
[2022-02-20] MEDS: cefTRIAXone 1,000 MG in sodium chloride 0.9% (plus) 50 ML 100 MG IV (21:51)
[2022-02-20] MEDS: sodium chloride 0.9% 1,000 ML 100 ML IV (21:51)
[2022-02-20] MEDS: enoxaparin 40 mg/0.4 mL Syringe SUBCUT (21:52)
[2022-02-20] MEDS: aspirin 300 mg Supp PR (21:52)
[2022-02-20 21:58] LABS: Troponin 5 6HR 19.75 ng/L (0-10)
[2022-02-20 21:59] LABS: Troponin 5 6HR Delta -0.25 ng/L (0-12)
[2022-02-20] MEDS: pantoprazole 40 mg SDV IVP (22:10)
[2022-02-21] VITALS (9 sets, daily range): BP systolic 109–116; BP diastolic 56–69; PULSE 52–64; RESP 14–18; TEMP 36.6–36.7; O2SAT 90–96
[2022-02-21 00:43] LABS: Glucose Point of Care 145 mg/dL (70-110)
[2022-02-21 04:51] LABS: Basophils % 0.6 %; Eosinophils # 0.4 10^3/uL (0.0-0.8); Eosinophils % 5.4 %; Hematocrit 38.2 % (37.0-47.0); Hemoglobin 12.2 g/dL (11.5-15.3); Lymphocytes # 1.4 10^3/uL (0.8-4.8); Lymphocytes % 21.5 %; Mean Corpuscular HGB Conc 31.9 g/dL (30.0-36.0); Mean Corpuscular Hemoglobin 29.5 pg (28.0-34.0); Mean Corpuscular Volume 92.5 fl (81-99); Mean Platelet Volume 10.6 fL (7.4-10.4); Monocytes # 0.5 10^3/uL (0.2-0.9); Monocytes % 7.8 %; Neutrophils % 64.4 %; Nucleated Red Blood Cells % 0 %; Platelet Count 223 10^3/cmm (130-400); Red Blood Count 4.13 10^6/uL (4.1-5.3); White Blood Count 6.5 10^3/uL (4.0-10.0)
[2022-02-21 05:11] LABS: Anion Gap 14.1 (5-19); Blood Urea Nitrogen 10 mg/dL (8-23); Calcium 8.7 mg/dL (8.5-10.5); Carbon Dioxide 23 mmol/L (22-29); Chloride 114 mmol/L (98-107); Glucose 172 mg/dL (65-115); Osmolality Calculated 307 mOsm/kg (285-295); Phosphorus 2.4 mg/dL (2.5-4.5); Potassium 4.1 mmol/L (3.5-5.1); Sodium 147 mmol/L (136-145)
[2022-02-21 06:39] LABS: Glucose Point of Care 139 mg/dL (70-110)
[2022-02-21] MEDS: sodium chloride 0.9% 1,000 ML 100 ML IV (07:12)
--- NOTE | 2022-02-21 09:18 | PC.NURSE ---
Patient not alert this morning to be able to take PO meds.
--- NOTE | 2022-02-21 10:04 | PM.PN ---
Subjective Subjective: Patient was sleeping when entered the room She is verbally redirectable Very pleasant Acute left MCA stroke This morning patient was present and cooperative during my evaluation She is able to move all 4 extremities Gait was not tested She seems to be in good spirits Vitals/I&O/Wt Last Vital Signs Temp 97.9 F 02/21/22 04:22 Pulse 59 L 02/21/22 07:41 Resp 15 02/21/22 07:41 BP 111/60 02/21/22 07:41 Pulse Ox 93 02/21/22 07:41 O2 Del Method 02/21/22 04:22 02/20/22 02/21/22 02/21/22 22:59 06:59 14:59 Intake Total 1050 / 1050 0 / 1050 935 / 935 Output Total 850 / 850 Balance 1050 / 1050 -850 / 200 935 / 935 Weight last 48 hrs Weight 75.296 kg Physical Exam Narrative: Patient was very pleasant and cooperative She is able to move her extremities Looks euvolemic Currently on room air Hemodynamically stable Abdomen soft Able to follow commands Pleasantly confused Looks euvolemic Currently doing well on room air No sign of cellulitis S1, S2 Data : 02/21/22 04:30 02/21/22 04:30 Micro: Microbiology 02/20/22 15:51 Blood Culture - Preliminary Blood SPECIMEN COLLECTED 02/20/22 15:45 Blood Culture - Preliminary Blood SPECIMEN COLLECTED A&P Assessment and plan (1) Left acute arterial ischemic stroke, MCA (middle cerebral artery): (2) Diabetes mellitus: (3) Stroke: (4) Dehydration, mild: Plan Acute left MCA stroke Start aspirin and Plavix continue atorvastatin He seems to the wound of all of her extremities Speech therapy is pending, clinically she looks slightly dehydrated with hypernatremia I will start her on D5 normal saline Start dysphagia level 4 diet Discontinue ceftriaxone no signs of UTI She was very pleasant during my evaluation She is responsive verbally redirectable We will follow-up with PT/OT and ST recommendations Most likely will go back to correction next 48 hours Full code Attestations Medical Necessity Statement*: Continue medical management Time Spent in Patient Care: 40 Coding Level of Care Code 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
[2022-02-21] MEDS: dextrose 5%-sod chloride 0.9% 1,000 ML 100 ML IV (10:54)
[2022-02-21 11:08] LABS: Glucose Point of Care 158 mg/dL (70-110)
[2022-02-21 16:57] LABS: Glucose Point of Care 174 mg/dL (70-110)
[2022-02-21] MEDS: insulin lispro 100 unit/1 mL SUBCUT (17:20)
[2022-02-21 21:33] LABS: Glucose Point of Care 131 mg/dL (70-110)
[2022-02-21] MEDS: enoxaparin 40 mg/0.4 mL Syringe SUBCUT (21:53)
[2022-02-21] MEDS: atorvastatin 40 mg Tablet PO (21:53)
[2022-02-21] MEDS: pantoprazole 40 mg SDV IVP (21:57)
[2022-02-22] VITALS: BP 104/57; PULSE 57; RESP 16; TEMP 36.8; O2SAT 93
[2022-02-22] MEDS: dextrose 5%-sod chloride 0.9% 1,000 ML 100 ML IV ×2 (04:12→14:25)
[2022-02-22 04:33] VITALS: BP 105/49; PULSE 55; RESP 16; TEMP 37; O2SAT 96
[2022-02-22 05:31] VITALS: PULSE 57
[2022-02-22 06:49] LABS: Glucose Point of Care 172 mg/dL (70-110)
[2022-02-22 08:00] VITALS: BP 135/67; PULSE 58; RESP 18; TEMP 36.9; O2SAT 95
[2022-02-22] MEDS: insulin lispro 100 unit/1 mL SUBCUT ×2 (08:41→12:37)
[2022-02-22] MEDS: clopidogrel 75 mg Tablet PO (08:42)
--- NOTE | 2022-02-22 10:30 | PM.DCS ---
Discharge Providers Date of Admission: 02/20/22 19:17 Date of Discharge: February 22, 2022 Attending Provider at Admission: Roly Larson MD Attending Provider at Discharge: Wilder Barahona MD Primary Care Provider: Law Manzanares MD Diagnoses at Discharge Discharge Diagnosis (1) Left acute arterial ischemic stroke, MCA (middle cerebral artery): Status: Acute (2) Diabetes mellitus: Status: Acute (3) Stroke: Status: Acute (4) Dehydration, mild: Status: Acute Reason for Visit Reason for Visit: AMS Hospital Course Hospital Course 76-year female who recently discharged from the hospital after metabolic encephalopathy related to UTI, this time she was presented with chief complaint of not responding well to verbal stimuli at the usp [facility]. Daughter was concerned probably usp was overmedicating her and causing sedation that is why she was not responding however in the ER she has been diagnosed with left MCA stroke. She does not have significant weakness of her extremities, she did participate to some extent with physical therapy, she has severe stenosis of right internal carotid 70% with intracranial stenosis as well, she is at risk of recurrent stroke, will give her Dr. Corbett's follow-up outpatient however intervention might be questionable considering her dementia and old age. I will give her aspirin, Plavix and high intensity statins. I have discontinued her Seroquel tramadol and escitalopram. I have added mirtazapine olanzapine and Xanax for her anxiety. She has been very pleasant throughout her hospitalization. She is not eating very well she is suffering from anorexia. I did speak with her daughter and discussed my concerns regarding recurrent stroke, hypertension, poor p.o. intake and use of sitagliptin. I would only continue her on sliding scale. Hemoglobin A1c is around 8.3. Daughter wants to switch her usp from [facility] to [facility]. She might be a good candidate for [facility] facility however for now daughter wants to give [facility] a chance to see if her mother is not heavily sedated. I did tell her that considering her dementia new stroke she might be showing more agitation, for that reason I am adding olanzapine. Physical Exam Narrative: Patient is able to move her extremities Pleasantly confused Clinically does not look dehydrated S1, S2 Abdomen soft Awake and alert Verbally redirectable Oriented to herself Sinus bradycardia Hemodynamically stable Abdomen soft Currently doing well on room air Discharge Data Studies Completed and Pending Completed Studies During Hospitalization Category Date Time Status CT head wo con* [id number] Stat Cat Scan 02/20/22 14:58 Completed CTA head neck [CT angio headneck* [id number]] Stat Cat Scan 02/20/22 16:12 Completed XR chest 1V portable [id number] Stat Exams 02/20/22 14:58 Completed Pending at discharge Category Date Time Status Blood Culture Stat Lab 02/20/22 15:51 Results Radiology Impressions Chest X-Ray 02/20/22 14:58 IMPRESSION: No acute findings. Head CT 02/20/22 14:58 IMPRESSION: 1. Ill-defined area of hypoattenuation within the left parietal temporal lobe may reflect an acute/subacute infarct and is new/more conspicuous from most recent comparison. This can be further evaluated with MRI as clinically indicated. 2. Moderate diffuse cerebral atrophy and sequela of chronic small vessel ischemic disease. Head/Neck CTA 02/20/22 16:12 IMPRESSION: 1. Severe segmental stenosis in an anterior M2 segment of the left middle cerebral artery. 2. Severe stenosis in the proximal intracranial right internal carotid artery. 3. 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 4. Findings consistent with a left MCA territory infarct. This demonstrates minimal progression/evolution since 02/13/2022. IMPRESSION: 1. Calcified plaque in the proximal right internal carotid artery with focal 70% stenosis. 2. Calcified plaque in the left internal carotid artery with 35% stenosis. 3. Calcified left thyroid nodules measuring up to 2.2 cm. Ultrasound follow-up is recommended. 4. Prominent superior mediastinal lymph nodes. These may be reactive but neoplastic disease is not excluded. COMMENTS: Consistent with the [employer]'s Incidental Findings Committee white paper (J Am Hector Radiol 2015): In patients aged 35 years and older with an incidental thyroid nodule equal to or greater than 1.[address], MRI or extrathyroidal US, further evaluation with dedicated thyroid US is recommended for patients with normal life expectancy and without comorbidities. For smaller nodules without suspicious features, no further evaluation or follow up is recommended. REFERENCES: NASCET CRITERIA. The degree of stenosis in the cervical segment of the internal carotid artery is based on NASCET criteria. Normal is no stenosis. Mild is less than 50% stenosis. Moderate is 50-69% stenosis. Severe is 70% to 99% stenosis. Total occlusion is no detectable patent lumen. ADDENDUM: 02/20/221825 Findings were discussed with Sotero Kay at 02/20/2022 6:23 PM CDT. The findings of the left MCA territory infarct appear more conspicuous than on 02/13/2022. Laboratory Results WBC 6.5 10^3/uL (4.0-10.0) 02/21/22 04:30 RBC 4.13 10^6/uL (4.1-5.3) 02/21/22 04:30 Hgb 12.2 g/dL (11.5-15.3) 02/21/22 04:30 Hct 38.2 % (37.0-47.0) 02/21/22 04:30 MCV 92.5 fl (81-99) 02/21/22 04:30 MCH 29.5 pg (28.0-34.0) 02/21/22 04:30 MCHC 31.9 g/dL (30.0-36.0) 02/21/22 04:30 RDW 15.0 % (12.1-15.1) 02/21/22 04:30 Plt Count 223 10^3/cmm (130-400) 02/21/22 04:30 MPV 10.6 fL (7.4-10.4) H 02/21/22 04:30 Neut % (Auto) 64.4 % 02/21/22 04:30 Lymph % (Auto) 21.5 % 02/21/22 04:30 Blair % (Auto) 7.8 % 02/21/22 04:30 Eos % (Auto) 5.4 % 02/21/22 04:30 Baso % (Auto) 0.6 % 02/21/22 04:30 Neut # (Auto) 4.20 10^3/uL (1.8-7.7) 02/21/22 04:30 Lymph # (Auto) 1.4 10^3/uL (0.8-4.8) 02/21/22 04:30 Blair # (Auto) 0.5 10^3/uL (0.2-0.9) 02/21/22 04:30 Eos # (Auto) 0.4 10^3/uL (0.0-0.8) 02/21/22 04:30 Baso # (Auto) 0.0 10^3/uL (0.0-0.1) 02/21/22 04:30 Nucleated RBC % (auto) 0 % 02/21/22 04:30 Nucleated RBCs # 0.0 /100WBC 02/21/22 04:30 Specimen Type Arterial 02/20/22 15:05 Sample Site Radial, left 02/20/22 15:05 ABG pH 7.41 (7.35-7.45) 02/20/22 15:05 ABG pCO2 38.8 mmHg (35-45) 02/20/22 15:05 ABG pO2 64.2 mmHg (80.0-100.0) L 02/20/22 15:05 ABG HCO3 24.3 mmol/L (22-26) 02/20/22 15:05 ABG Base Excess -0.3 mmol/L (-2.0-2.0) 02/20/22 15:05 Iban Test Pos 02/20/22 15:05 Hematocrit 40.3 % (37-47) 02/20/22 15:05 O2 Delivery Device Room air 02/20/22 15:05 Engineering Geologist ID Dhaval 02/20/22 15:05 Sodium 147 mmol/L (136-145) H 02/21/22 04:30 Potassium 4.1 mmol/L (3.5-5.1) 02/21/22 04:30 Chloride 114 mmol/L (98-107) H 02/21/22 04:30 Carbon Dioxide 23 mmol/L (22-29) 02/21/22 04:30 Anion Gap 14.1 (5-19) 02/21/22 04:30 BUN 10 mg/dL (8-23) 02/21/22 04:30 Creatinine 0.6 mg/dL (0.5-0.9) 02/21/22 04:30 GFR Calculation Not Reportable 02/21/22 04:30 Glucose 172 mg/dL (65-115) H 02/21/22 04:30 POC Glucose 172 mg/dL (70-110) H 02/22/22 06:24 Calculated Osmolality 307 mOsm/kg (285-295) H 02/21/22 04:30 Calcium 8.7 mg/dL (8.5-10.5) 02/21/22 04:30 Phosphorus 2.4 mg/dL (2.5-4.5) L 02/21/22 04:30 Magnesium 2.0 mg/dL (1.7-2.3) 02/21/22 04:30 Total Bilirubin 0.4 mg/dL (0.15-1.2) 02/20/22 15:21 AST 21 U/L (0-32) 02/20/22 15:21 ALT 17 U/L (0-33) 02/20/22 15:21 Alkaline Phosphatase 71 U/L (35-105) 02/20/22 15:21 Troponin T Baseline 20 ng/L (0-10) H 02/20/22 15:21 Troponin T 120 Minute 22.83 ng/L (0-10) H 02/20/22 17:24 Delta Troponin T 2.83 ABS# (0-10) 02/20/22 17:24 Troponin T Hi Sens 6Hr 19.75 ng/L (0-10) H 02/20/22 21:21 Troponin T Hi Sens 6Hr Delta -0.25 ng/L (0-12) L 02/20/22 21:21 C-Reactive Protein 16.7 mg/L (0.0-4.9) H 02/20/22 15:21 NT-Pro-B Natriuret Pep 339 pg/mL (0-450) 02/20/22 15:21 Total Protein 6.5 g/dL (6.6-8.7) L 02/20/22 15:21 Albumin 3.6 g/dL (3.5-5.2) 02/20/22 15:21 Globulin 2.9 g/dL (1.3-4.6) 02/20/22 15:21 Procalcitonin 0.11 ng/mL (0-0.5) 02/20/22 15:21 TSH 1.23 uIU/mL (0.27-4.20) 02/20/22 17:24 Urine Color Yellow (Yellow) 02/20/22 17:13 Urine Appearance Cloudy (CLEAR) 02/20/22 17:13 Urine pH 5 (5-7) 02/20/22 17:13 Ur Specific [place] 1.015 (1.005-1.030) 02/20/22 17:13 Urine Protein Neg (Negative) 02/20/22 17:13 Urine Glucose (UA) Norm (Normal) 02/20/22 17:13 Urine Ketones Negative (Negative) 02/20/22 17:13 Urine Blood Neg (Negative) 02/20/22 17:13 Urine Nitrate Negative (Negative) 02/20/22 17:13 Urine Bilirubin Neg (Negative) 02/20/22 17:13 Urine Urobilinogen Neg mg/dL (Negative) 02/20/22 17:13 Ur Leukocyte Esterase 2+ (Negative) H 02/20/22 17:13 Urine RBC None /hpf (0-2) 02/20/22 17:13 Urine WBC 0-4 /hpf (0-5) H 02/20/22 17:13 Ur Squamous Epith Cells 0-4 /hpf (0-5) H 02/20/22 17:13 Amorphous Sediment Not Reportable 02/20/22 17:13 Urine Bacteria None /hpf (NONE) 02/20/22 17:13 Urine Mucus 1+ /hpf 02/20/22 17:13 Salicylates < 0.3 mg/dL (3-10) L 02/20/22 15:21 Urine Opiates Screen Positive ng/mL (Negative) H 02/20/22 17:13 Acetaminophen < 5.0 ug/mL (10-30) L 02/20/22 15:21 Ur Barbiturates Screen Negative ng/mL (Negative) 02/20/22 17:13 Ur Phencyclidine Scrn Negative ng/mL (Negative) 02/20/22 17:13 Ur Amphetamines Screen Negative ng/mL (Negative) 02/20/22 17:13 U Benzodiazepines Scrn Negative ng/mL (Negative) 02/20/22 17:13 Urine Cocaine Screen Negative ng/mL (Negative) 02/20/22 17:13 U Marijuana (THC) Screen Negative ng/mL (Negative) 02/20/22 17:13 Ethyl Alcohol < 10 mg/dL (0-10) 02/20/22 15:21 Vitals Last Vital Signs Temp 98.4 F 02/22/22 08:00 Pulse 58 L 02/22/22 08:00 Resp 18 02/22/22 08:00 BP 135/67 02/22/22 08:00 Pulse Ox 95 02/22/22 08:00 O2 Del Method 02/22/22 08:00 Discharge Plan Discharge Patient Disposition: Xfer SNF Condition: Stable Prescriptions: New Ativan 0.5 mg tablet 0.5 mg PO BID PRN (Reason: agitation) Qty: 14 0RF aspirin 81 mg tablet,delayed release (DR/EC) 81 mg PO DAILY Qty: 60 0RF atorvastatin 40 mg tablet 40 mg PO DAILY Qty: 30 2RF clopidogrel [Plavix] 75 mg tablet 75 mg PO DAILY Qty: 20 0RF mirtazapine 15 mg tablet 15 mg PO DAILY Qty: 30 0RF olanzapine 10 mg tablet 10 mg PO DAILY 3 Days Qty: 60 0RF Continued pantoprazole [Protonix] 40 mg tablet,delayed release (DR/EC) 40 mg PO DAILY amlodipine 10 mg tablet 10 mg PO DAILY Qty: 30 0RF insulin aspart U-100 [Novolog Flexpen U-100 Insulin] 100 unit/mL (3 mL) insulin pen See Rx Instructions .ROUTE .COMPLEX Qty: 15 0RF Rx Instructions: Inject, subcu, 3 times daily, after meals, based on sliding scale provided. 50-200: 0 units, 201-250: 2 units, 251-300: 4 units, 301-350: 6 units, 351-400: 8 units, notify physician <70 or >400. acetaminophen [Tylenol] 325 mg Tablet 325 mg PO QID PRN (Reason: Pain) hydralazine 25 mg Tablet 25 mg PO TID 30 Days Qty: 90 0RF Changed Levemir U-100 Insulin 100 unit/mL solution 10 unit SUBCUT BEDTIME Qty: 15 0RF Discontinued gabapentin [Neurontin] 300 mg capsule 300 mg PO TID escitalopram oxalate [Lexapro] 10 mg tablet 20 mg PO DAILY tramadol 50 mg tablet 50 mg PO BID PRN (Reason: Pain) sitagliptin 50 mg tablet 50 mg PO DAILY Qty: 90 0RF Seroquel 50 mg Tablet 50 mg PO BID levofloxacin 750 mg tablet 750 mg PO DAILY 7 Days Qty: 7 0RF Rx Instructions: For 7 days starting 02/15/22 Discharge Orders: Discharge Order (Routine); Ordered 02/22/22 Ordered By: Wilder Barahona Referrals: Law Manzanares MD [Primary Care Provider] - Discharge Diet: As Directed Activity Restrictions/Additional Instructions: Dysphagia level 5 diet minced and moist diet Discharge Attestations Time Spent in Discharge Care*: less than 30 min Status at Discharge: Cognitive status at discharge: severely impaired cognition, Behavioral status at discharge: cooperative, Quality Metrics Clinical Quality Measures [ No reported AMI, CVA or VTE this stay] Coding Level of Care Code Acute Chg FW DC note Diagnoses Left acute arterial ischemic stroke, MCA (middle cerebral artery) I63.512 Diabetes mellitus E11.9 Stroke I63.9 Dehydration, mild E86.0
[2022-02-22] MEDS: aspirin 300 mg Supp PR (11:01)
[2022-02-22 11:07] LABS: Glucose Point of Care 213 mg/dL (70-110)
--- NOTE | 2022-02-22 11:27 | PC.CHAP ---
Pastoral Care Encounter/Spiritual Assessment Type of Contact [] Declined aquacultural worker supervisor visit [] Patient/Family/Request visit [] Outpatient visit [] Follow-up visit [] Physician referral [] Code/Alert [x] Routine visit [] Staff referral [] Actively dying [] Patient sleeping [] Family support [] [] Out of room [] Palliative care [] [] Receiving care in room [] Pre-surgical visit [] Trauma [] Long length of stay [] ICU visit [] Other: Relational/Emotional Strength [x] Patient feels connected with others/family/visitors/staff [] Distress [] Loneliness/isolation [] Abandonment Spirituality of Patient x] Person of Kanchan [] Attends Muslim of their Kanchan [x] Believes in Prayer [] Reads Bible or Hindu materials [] There are Spiritual issues to be addressed Braider Setter Interventions [x] Prayer [x] Active listening [] Non-anxious presence [] Spiritual/emotional support [] Crisis/trauma care [] Spiritual counseling [] Bereavement support [] Provided bereavement packet [] Provided Bible/devotional materials [] Provided toy/stuffed animal, coloring book to patient or family member [] Provided Communion [] Anointing/[place] [] Salvation [x] Completed spiritual assessment [] Other: Impact on Illness or Injury [] Angry [] Fearful [] Anxious [] Often cries [] Exhaustion [] Unable to work [] Unable to attend jew [] Unable to walk/stand [] Unable to read [] Unable to drive [] Unable to eat/drink [] Unable to sleep [] Unable to be with family [] Patient intubated [] Other: Summary Time spent with patient 10 min
[2022-02-22 11:36] VITALS: BP 164/65; PULSE 59; RESP 18; TEMP 36.7; O2SAT 98
--- NOTE | 2022-02-22 15:16 | PC.NURSE ---
Report called to Katty at [facility].
[2022-02-22 15:19] LABS: SARS Covid-2 Antigen Negative (Negative)
[2022-02-22 15:44] VITALS: BP 164/65; PULSE 59; RESP 18; TEMP 36.7; O2SAT 98
== END 2022-02-22 15:46 | disposition skilled nursing facility (03) | DRG 65 ==
LOC: ER 19:17 → MEDSURG 19:46
PROVIDERS: Admitting Provider Family Medicine; Emergency Provider Emergency Medicine; PCP Internal Medicine; Visit Provider Internal Medicine
DX: I63.512 Cerebral infarction due to unspecified occlusion or stenosis of left middle cerebral artery (principal); F05 Delirium due to known physiological condition; G93.40 Encephalopathy, unspecified; R29.810 Facial weakness; R47.01 Aphasia; R29.708 NIHSS score 8; F03.90 Unspecified dementia, unspecified severity, without behavioral disturbance, psychotic disturbance, mood disturbance, and anxiety; E11.9 Type 2 diabetes mellitus without complications; I10 Essential (primary) hypertension; E78.5 Hyperlipidemia, unspecified; F32.A Depression, unspecified; Z87.440 Personal history of urinary (tract) infections; Z86.73 Personal history of transient ischemic attack (TIA), and cerebral infarction without residual deficits; E78.2 Mixed hyperlipidemia; G89.29 Other chronic pain; M54.16 Radiculopathy, lumbar region; Z96.0 Presence of urogenital implants; I65.21 Occlusion and stenosis of right carotid artery; Z79.4 Long term (current) use of insulin; E86.0 Dehydration; R13.10 Dysphagia, unspecified
CPT/HCPCS: 36415; 36416; 36600; 70450; 70496; 70498; 71045; 80048; 80053; 80306; 80307; 81001; 82803; 82962; 83735; 83880; 84100; 84145; 84443; 84484; 85025; 86140; 87040; 87426; 92523; 92610; 93005; 96361; 96372; 96374; 96376; 97110; 97161; 97165; 97530; 97535; 99285; C9113; J0696; J1650; J1815; J2310; J7030; Q9967

== ENCOUNTER → 2022-03-11 14:26 | Outpatient (BNVA) | payer MEDICARE, MEDICAID, SELFPAY | PROVIDERS: PCP Internal Medicine; Visit Provider Thoracic Surgery (Cardiothoracic Vascular Surgery) | DX: I77.9 Disorder of arteries and arterioles, unspecified (principal) | CPT/HCPCS: 99203 ==